=== PATIENT | female | born 1960 | race Caucasian/White ===

== ENCOUNTER 2016-03-24 02:06 | Emergency (ER) | payer MEDICAID ==
[2016-03-24] MEDS ORDERED: DIAZEPAM 5 MG/ML SYRG ONE (02:11)
[2016-03-24 02:33] LABS: Hematocrit 38.9 % (37.0-47.0); Hemoglobin 13.3 gm/dL (12.5-16.0); Mean Cell Volume 106.3 fl (78-100); Mean Corpuscular Hemoglobin 36.3 pg (27-31); Mean Corpuscular Hgb Conc 34.2 g/dl (32-36); Mean Platelet Volume 8.9 fl (6.0-9.5); Neutrophil # 11.5 K/mm3 (1.3-6.0); Neutrophil % 85.8 % (42-75.0); Platelet Count 218 K/mm3 (150-450); Red Blood Count 3.66 M/mm3 (4.2-5.4); Red Cell Distribution Width 13.1 % (11.5-14.0); White Blood Count 13.4 K/mm3 (4.0-10.5)
[2016-03-24 02:46] LABS: ALT 98 U/L (19-67); AST 140 U/L (0-48); Alkaline Phosphatase * 114 U/L (50-170); BUN/Creatinine Ratio 11.8 (9.0-21.6); Bilirubin, Total 0.7 mg/dL (0.0-1.1); Blood Urea Nitrogen 13 mg/dL (3-23); Ca. Corrected For Albumin 9.6 mg/dL (8.4-10.2); Calcium * 9.9 mg/dL (7.9-10.9); Carbon Dioxide 24.3 mmol/L (24-32.6); Chloride 95 mmol/L (97-106); Glucose * 195 mg/dL (70-110); Potassium 3.3 mmol/L (3.4-4.6); Sodium 140 mmol/L (132-142); Total Protein 8.1 gm/dL (6.2-8.2)
--- NOTE | 2016-03-24 03:12 | OR ---
Anesthesia Procedure Note - Anesthesia Procedure Note Narrative: Vital Signs - Last Taken Temp 37.1 C 03/24/16 02:13 Pulse 119 H 03/24/16 02:31 Resp 16 03/24/16 02:13 BP 152/85 03/24/16 02:13 Pulse Ox 94 03/24/16 02:13 O2 Oxygen Delivery Method Room Air 03/24/16 03:09 ANESTHESIA PROCEDURE NOTE Date of procedure: 03/24/2016. Time of procedure: 249. Performed by: Bradley Bah CRNA [employer] Drilling Machine Operator: None . Preprocedure diagnosis: Seizures. respiratory distress.. Post procedure diagnosis: Same. Procedure: Endotracheal intubation Indications: Loss of consciousness. Respiratory distress.. Findings: Endotracheal intubation using glide scope with #3 cover. 7.0 endotracheal tube. Breath sounds equal bilateral. Positive end-tidal CO2. 100 mg of propofol and 80 mg succinylcholine was given IV push for intubation. 50 mg of Zemuron was given IV push post intubation. EBL: Minimal. Fluids: N/A. Specimen: N/A. Post procedure condition: The patient tolerated the procedure well. No complications were noted. Thank you for this consultation Bradley Bah CRNA
--- NOTE | 2016-03-24 03:23 | ERNOTE ---
Medical Problem HPI - Narrative Date of Service: 03/24/16 - General Chief Complaint: Seizure Activity Time Seen by Provider: 03/24/16 02:15 Source: EMS, other - Patient's male friend - Immun/Allergies/Home Medications Immunizations: IMMUNIZATION HX Immunizations Up to Date No History of Influenza Vaccine No Hx Pneumococcal Vaccination No Allergies/Adverse Reactions: Allergies naproxen sodium [From Aleve] Allergy (Intermediate, Verified 06/18/15 13:00) Hives Penicillins Allergy (Intermediate, Verified 06/18/15 13:00) Hives Home Medications: HOME MEDICATIONS Acetaminophen [Tylenol] 650 mg PO PRN PRN 06/12/15 [Last Taken Unknown] - History of Present History Narrative: Patient is a known alcoholic who tried to stop drinking and detox her self yesterday. male supervisor rice milling states that patient fell today prior to presentation to ED and hit her head, Pt then had a seizure and EMS was called to residence. EMS brings patient in and upon arrival GCS is 4 as she is unresponsive but moans with sternal rub. Pupils are 2mm and NOT reactive and pt had a tonic clonic seizure. Anesthesia was consulted for intubation and pt was successfully intubated. Review of Systems - Narrative Narrative: unavailable. however supervisor rice milling states that patient has been ill all day and had had nausea and vomiting all day. Then she fell. Supervisor Hand Silvering is unaware if patient has drank today or if she has had any drugs today - Patient's Past Medical History Patient History - Medical: Alcohol Abuse, Depression, Other Patient History - Cardiac/Respiratory: COPD Patient History - Cancer: No Hx of Cancer, Other Patient History - Surgical Procedures: Hysterectomy Patient History - Other: None - Family History Mother Family History - Medical: History Unknown Father Family History - Medical: History Unknown - Social History Living Situations: home Psych History: No pertinent hx Smoking Status: Current every day smoker Alcohol Use: heavy Drug Use: other - Immunizations Immunizations Up to Date: No Hx Pneumococcal Vaccination: No History of Influenza Vaccine: No Physical Exam - Physical Exam Narrative: pt has GCS of 4, she moans with sternal rub. pupils are NOT reactive to light. Shortly after arrival patient had a seizure and o2 sats dropped to 76 , momentarily and pt was immediately intubated by anesthesiologist ED Progress - Results and Orders Patient's Lab Results:: I have reviewed the patient's lab results. - Vital Signs Patient's Vital Signs:: I have reviewed the patient's vital signs. Vital Signs: Vital Signs 03/24/16 03/24/16 02:13 02:31 Temperature 37.1 C Pulse Rate 125 H 119 H Respiratory 16 Rate Blood Pressure 152/85 O2 Sat by Pulse 94 Oximetry - Progress/Reassessment Chief Complaint: Seizure Activity Plan - Plan Plan: I am being informed that we have no beds available in this facility at this time. Dr. Trinh at [facility] was consulted and accepted patient to his facility after a CT of head and Cspine is done here. Air evac team available. Blood alcohol level is less than 3. Prior to transfer it was noted that patient' s BP was elevated. This examiner asked for a manual BP at 0300. Repeat BP is 149 /103. CT was read as 6mm parafalcine bleed, and 1.1 cm right parietal and right temporal bleed. Keppra 1 gm IV was administered and pt was flown out to [facility]. Departure - Departure Clinical Impression: Seizure after head injury Disposition: [facility] Condition: Serious
[2016-03-24 03:40] LABS: Cocaine Ur Negative (NEGATIVE); Urine Barbiturate Negative (NEGATIVE); Urine Benzodiazepines Negative (NEGATIVE); Urine Opiates Negative (NEGATIVE); Urine PCP Negative (NEGATIVE); Urine THC Negative (NEGATIVE)
[2016-03-24] MEDS ORDERED: MIDAZOLAM HCL/PF 5 MG/ML VIAL ONE (03:57)
[2016-03-24 04:15] VITALS: BP 137/83
[2016-03-24] MEDS ORDERED: MIDAZOLAM HCL/PF 5 MG/ML VIAL IM ONE ×2 (06:25→06:27)
[2016-03-24] MEDS ORDERED: MIDAZOLAM HCL/PF 5 MG/ML VIAL IV ONE (06:31)
== END 2016-03-24 04:15 | disposition short-term general hospital (02) ==
LOC: ER 02:06
PROC: 0BH17EZ Insertion of Endotracheal Airway into Trachea, Via Natural or Artificial Opening (ICD-10-PCS; principal; 2016-03-24)
DX: G40.89 Other seizures (principal); R40.20 Unspecified coma; S09.8XXA Other specified injuries of head, initial encounter; F17.210 Nicotine dependence, cigarettes, uncomplicated; W18.00XA Striking against unspecified object with subsequent fall, initial encounter
CPT/HCPCS: 31500; 36415; 70450; 71010; 80053; 85025; 96374; 99283; G0479; G0481

== ENCOUNTER 2016-08-02 22:58 | Inpatient (IN) | payer SELFPAY ==
[2016-08-02] MEDS ORDERED: NORMAL SALINE 1,000 ML IV ONE (23:17)
[2016-08-02] MEDS ORDERED: METHYLPREDNISOLONE SOD SUCC/PF 40 MG/ML VIAL IV ONE (23:17)
--- NOTE | 2016-08-02 23:23 | ERNOTE ---
Neuro HPI ER Record Date of Service: 08/02/16 Time Seen by Provider: 08/02/16 23:19 Source: patient, EMS, past records - I REVIEWED SOME OF HER MOST RECENT CHARTS. Exam Limitations: clinical condition Immunizations: IMMUNIZATION HX Immunizations Up to Date Yes History of Influenza Vaccine No Hx Pneumococcal Vaccination No Allergies/Adverse Reactions: Allergies Allergy/AdvReac Type Severity Reaction Status Date / Time naproxen sodium [From Aleve] Allergy Intermediate Hives Verified 08/02/16 23:12 Penicillins Allergy Intermediate Hives Verified 08/02/16 23:12 Home Medications: HOME MEDICATIONS NK [No Home Medication] 08/02/16 [Last Taken Unknown] - History of Present Illness Narrative: EMS CALLED BY FRIENDS BECAUSE SHE WAS NOT ACTING RIGHT. SHE HAS ACTED DEPRESSED FOR A LONG TIME , EVER SINCE HER 3 YEARS AGO AND HAS BEEN LIVING WITH A FRIEND, "VICENTA", EVER SINCE. SHE IS A KNOWN ALCOHOLIC WHO HAS HAD WITHDRAWAL SEIZURES IN THE PAST BEING LAST HERE IN MARCH OF THIS YEAR FOR A HEAD BLEED FROM A FALL AND FLOWN TO [facility]. SHE SAYS SHE HAS NOT HAD ANY ALCOHOL FOR A FEW DAYS SINCE VICENTA TOOK IT AWAY. SHE DENIES DRUGS. SHE CAN'T REMEMBER THE LAST TIME SHE ATE. SHE DENIES DIARRHEA BUT HAS OLD STOOL CAKED TO HER BUTTOCKS SHE HAS NOT BEEN DOING EVEN THE SIMPLEST OF SELF CARE. HER FRIEND WAS NOT SURE SHE WAS EVEN DRINKING FLUIDS BUT PT SAYS SHE HAS BEEN URINATING AND DENIES UTI SX'S. SHE DENIES H.A. OR RECENT TRAUMA. Review of Systems - Narrative Narrative: UNABLE TO DO ROS BECAUSE OF CLINICAL CONDITION. - Review of Systems Constitutional: Present: See HPI - IN OTHER INFORMATION IS OF DUBIOUS VALUE SHE IS NOT A GOOD HISTORIAN THOUGH IS ALERT AND KNOWS WHERE SHE IS. - Patient's Past Medical History Patient History - Medical: Alcohol Abuse, Depression, Other Patient History - Cardiac/Respiratory: COPD Patient History - Cancer: No Hx of Cancer, Other Patient History - Surgical Procedures: Hysterectomy Patient History - Other: None - Family History Mother Family History - Medical: History Unknown Father Family History - Medical: History Unknown - Social History Living Situations: significant other Psych History: No pertinent hx Smoking Status: Current every day smoker Alcohol Use: heavy Drug Use: other - Immunizations Immunizations Up to Date: Yes Hx Pneumococcal Vaccination: No History of Influenza Vaccine: No Physical Exam - Physical Exam General Appearance: Present: alert, moderate distress, thin, cachetic, other - SMALL THIN UNKEMPT, DIRTY LADY , SMELLING OF FECES AND URINE, WHO IS ALERT AND COOP BUT HAS A POOR MEMORY AND UNSURE OF THE DAY OR DATE THOUGH SHE KNOWS THAT SHE IS AT [facility] . SHE ACTS OBLIVIOUS TO HER DISHEVELED UNHYGENIC STATE. FACE HAS MANY FRESH SMALL EXCORIATIONS OR BITES TO THE FACE. HER HAIR IS QUITE TANGLED AND DIRTY BUT I DO NOT SEE ANY OBVIOUS INFESTATION. Eye Exam: Normal inspection: bilateral - SUNKEN EYES , PERRL: bilateral, EOMI: bilateral, Scleral icterus: bilateral - A HINT OF SCERAL ICTERUS. Ears, Nose, Throat: Present: normal except -, dry mucous membranes, other - MISSING UPPER PLATE Neck: Present: normal inspection, nontender Respiratory: Present: no respiratory distress, normal breath sounds, no accessory muscle use, chest nontender, lungs clear Cardiovascular/Chest: Present: regular rate, rhythm, no murmur, normal peripheral pulses Peripheral Pulses: N=norm/S=strong/W=weak/B=bound/A=absent: Radial (R): Normal, Radial (L): Normal, Dorsalis-pedis (R): Normal, Dorsalis-pedis (L): Normal Gastrointestinal/Abdominal: Present: nontender, nondistended, soft, no organomegaly Back Exam: Present: normal inspection, no CVA tenderness, no vertebral tenderness Extremity Exam: Present: normal except - - FOR HER UNKEMPT STATE WITH LONG THICKENED TOENAILS. SOME SUPERFICIAL EXTREMITY SCRATCHES. Neurological Exam: Present: alert, no motor/sensory deficits, glaucoma specialist II-XII nml as tested, disoriented to time, disoriented to situation. Absent: facial droop DTR: N=norm/NB=norm/brisk/A=abs/DD=dull/dimin/HC=hyperactive: Knee (R): Normal, Knee (L): Normal Skin Exam: Present: other - SKIN COLOR IS SL. BRONZED AND DRY AND WITH POOR TURGOR Lymphatic Exam: Present: no adenopathy Angela Coma Scale - Assess Eye Opening: Spontaneous Motor: Obeys Commands Verbal: Confused - Total Coma Scale Total: 14 ED Progress - Results and Orders Patient's Lab Results:: I have reviewed the patient's lab results. Results and Orders: WBC = WNL WITH MILD ANEMIA. ABG IS ABNL WITH PH 7.6 AND EVIDENCE OF METABOLIC ALKALOSIS. CMP CONFIRMS THAT WITH NA+= 117, K+=2.1CL = 69 AND CO2 = 46. BUN IS 30 WITH NL CREAT. SHE HAS T. BILI = 3.3 AND AST = 227. URINE (MINICATH)+ PROT. + BILI AND URO TATY. , 10-25 WBC = LEUKO EST. AND 4+ BQCT. CULTURE IS PENDING. ETOH AND UDS = NEG. ARE ASA AND APAP LEVELS. - Vital Signs Patient's Vital Signs:: I have reviewed the patient's vital signs. Vital Signs: Vital Signs 08/02/16 08/02/16 23:01 23:10 Temperature 37.3 C Pulse Rate 117 H 114 H Respiratory 16 Rate Blood Pressure 92/70 O2 Sat by Pulse 95 Oximetry - EKG EKG: other - SINUS TACHYCARDIA EKG read: Interp. by me - Progress/Reassessment Chief Complaint: Altered Mental Status Progress:: Unchanged - Transfer of Care Expected Disposition: Admit Plan - Plan Plan: DISCUSSED WITH HOSPITALIST, SUSAN CHRISTOPHER , WHO WILL SEE HER IN THE ER FOR ADMISSION. Departure Clinical Impression: Altered awareness, transient, Alkalosis, metabolic, Hyponatremia, Hypokalemia UTI (urinary tract infection) Qualifiers: Urinary tract infection type: site unspecified Hematuria presence: with hematuria Qualified Code(s): N39.0 - Urinary tract infection, site not specified - Departure Disposition: [facility] Condition: Serious
[2016-08-02] MEDS ORDERED: METHYLPREDNISOLONE SOD SUCC/PF 125 MG/2 ML VIAL ONE (23:29)
[2016-08-02 23:43] LABS: Hematocrit 28.3 % (37.0-47.0); Hemoglobin 10.8 gm/dL (12.5-16.0); Mean Cell Volume 95.6 fl (78-100); Mean Corpuscular Hemoglobin 36.5 pg (27-31); Mean Corpuscular Hgb Conc 38.2 g/dl (32-36); Mean Platelet Volume 11.3 fl (6.0-9.5); Neutrophil # 4.3 K/mm3 (1.3-6.0); Neutrophil % 77.7 % (42-75.0); Platelet Count 169 K/mm3 (150-450); Red Blood Count 2.96 M/mm3 (4.2-5.4); Red Cell Distribution Width 12.9 % (11.5-14.0); White Blood Count 5.5 K/mm3 (4.0-10.5)
[2016-08-02 23:57] LABS: ALT 48 U/L (19-67); AST 227 U/L (0-48); Albumin * 3.4 gm/dl (3.4-5.0); Alkaline Phosphatase * 211 U/L (50-170); BUN/Creatinine Ratio 49.2 (9.0-21.6); Bilirubin, Total 3.3 mg/dL (0.0-1.1); Blood Urea Nitrogen 30 mg/dL (3-23); Calcium * 8.8 mg/dL (7.9-10.9); Chloride 69 mmol/L (97-106); Glucose * 124 mg/dL (70-110); Salicylate Less than 2.8 mg/dL (2.8-20.0); Total Protein 7.6 gm/dL (6.2-8.2)
--- OUTSIDE RECORDS SUMMARY | 2016-08-02 23:58 | XMS REPORT | Continuity of Care Document ---
:1960 Author Organization [facility] ([facility]) [place] [address] Phone [phone] Care Team Providers Name Role Phone Provider, No-Primary Care Primary Care Provider Unavailable Source Comments This disclosure is being made pursuant to the Care Everywhere program, applicable federal and state laws, and may not contain all informaitonavailable regarding this patient.[facility] ([facility]) Active Allergies and Adverse Reactions Allergen Noted Date Severity Reactions Comments Naproxen Sodium 07/25/2014 Urticaria (Hives) Penicillins 07/25/2014 Angioedema Tramadol 08/04/2014 Nausea & Vomiting,Dizziness Current Medications Prescription Sig. Disp. Refills Start Date End Date Status levETIRAcetam 500 mg Take 1 tablet 80 tablet 11 03/28/2016 Active tablet (500 mg total) by mouth 2 times daily. oxyCODONE 5 mg Take 1-2 tablets 30 tablet 0 03/28/2016 Active immediate release (5-10 mg total) tablet by mouth every 4 hours as needed for pain. amLODIPine 2.5 mg Take 1 tablet 60 tablet 11 03/28/2016 Active tablet (2.5 mg total) by mouth daily. Active Problems Problem Noted Date Acute kidney injury 03/27/2016 Seizure 03/24/2016 Overview: Neurosurgery consulted. Imaging obtained. Will continue to monitor Acute respiratory failure 03/24/2016 Overview: Pt intubated. Will continue to monitor Fall 07/26/2014 Traumatic subdural hematoma 07/26/2014 Overview: Neuro checks f/u hct Immunizations Name Dates Previously Given Next Due Influenza, quadrivalent PF 03/27/2016 Pneumococcal Polysaccharide, PPSV23 (Pneumovax 23) 03/27/2016 Social History Tobacco Use Types Packs/Day Years Used Date Current Every Day Smoker Cigarettes 1 Smokeless Tobacco: Never Used Tobacco Cessation:Ready to Quit: No Comments: Alcohol Use Drinks/Week oz/Week Comments Yes 3 Shots of liquor 1.8 Last Filed Vital Signs Vital Sign Reading Time Taken Blood Pressure 140/95 03/28/2016 8:00 AM CENTER LEAD CONSULTANT Pulse 105 03/28/2016 4:30 AM CENTER LEAD CONSULTANT Temperature 37.4 C (99.3 F) 03/28/2016 8:00 AM CENTER LEAD CONSULTANT Respiratory Rate 16 03/28/2016 8:00 AM CENTER LEAD CONSULTANT Height 1.6 m (5' 3") 03/27/2016 2:23 PM CENTER LEAD CONSULTANT Weight 47.3 kg (104 lb 4.4 oz) 03/28/2016 4:30 AM CENTER LEAD CONSULTANT Body Mass Index 18.48 03/28/2016 4:30 AM CENTER LEAD CONSULTANT Oxygen Saturation 97% 03/28/2016 8:00 AM CENTER LEAD CONSULTANT Plan of Care Health Maintenance Due Date Last Done Comments HCV Screening 1960 Hepatitis B Vaccine (1 of 3 - Primary Series) 1960 Tdap Vaccine 1972 Lipid Disorder Screening 12/18/1979 MMR Vaccine 12/18/1979 Td Vaccine 12/18/1979 Cervical Cancer Screening 12/18/1991 Mammogram 2001 Colonoscopy 2011 Influenza Vaccine: Seasonal Completed 03/27/2016 Pneumococcal Vaccine Completed 03/27/2016 Results from Last 3 Months Not on file
[2016-08-03 00:14] LABS: Anion Gap 3.8 mmol/L (6.8-13.8)
[2016-08-03 00:21] LABS: Potassium 2.1 mmol/L (3.4-4.6); Sodium 117 mmol/L (132-142)
[2016-08-03 00:22] LABS: Carbon Dioxide 46.3 mmol/L (24-32.6)
[2016-08-03 00:51] LABS: Cocaine Ur Negative (NEGATIVE); Urine Barbiturate Negative (NEGATIVE); Urine Benzodiazepines Negative (NEGATIVE); Urine Bilirubin 3 mg/dl (NEGATIVE); Urine Blood 25 /ul (NEGATIVE); Urine Ketone 5 mg/dL (NEGATIVE); Urine Nitrite Negative (NEGATIVE); Urine Opiates Negative (NEGATIVE); Urine PCP Negative (NEGATIVE); Urine Protein 100 mg/dL (NEGATIVE); Urine Specific Gravity 1.015 SP.GR. (1.005-1.010); Urine THC Negative (NEGATIVE); Urine Urobilinogen >=8.0 EU/dl (NORMAL); Urine pH 5.5 pH (5.0-7.0)
[2016-08-03 00:55] LABS: Urine Appearance Slightly Cloudy; Urine Bacteria 4+; Urine Color Orange; Urine RBC None Seen /hpf (0-5)
[2016-08-03] MEDS ORDERED: NORMAL SALINE 1,000 ML IV ONE (01:28)
[2016-08-03] MEDS: POTASSIUM CHLORIDE 100 ML IV SCH ×4 (01:43→05:58)
--- OUTSIDE RECORDS SUMMARY | 2016-08-03 01:48 | XMS REPORT | Continuity of Care Document ---
:1960 Author Organization [facility] ([facility]) [place] [address] Phone [phone] Care Team Providers Name Role Phone Provider, No-Primary Care Primary Care Provider Unavailable Source Comments This disclosure is being made pursuant to the Care Everywhere program, applicable federal and state laws, and may not contain all informaitonavailable regarding this patient.[facility] ([facility]) Active Allergies and Adverse Reactions Allergen Noted [...] Taken Blood Pressure 140/95 03/28/2016 8:00 AM SENIOR UX DESIGNER Pulse 105 03/28/2016 4:30 AM SENIOR UX DESIGNER Temperature 37.4 C (99.3 F) 03/28/2016 8:00 AM SENIOR UX DESIGNER Respiratory Rate 16 03/28/2016 8:00 AM SENIOR UX DESIGNER Height 1.6 m (5' 3") 03/27/2016 2:23 PM SENIOR UX DESIGNER Weight 47.3 kg (104 lb 4.4 oz) 03/28/2016 4:30 AM SENIOR UX DESIGNER Body Mass Index 18.48 03/28/2016 4:30 AM SENIOR UX DESIGNER Oxygen Saturation 97% 03/28/2016 8:00 AM SENIOR UX DESIGNER Plan of Care Health Maintenance Due Date [...]
[2016-08-03] MEDS ORDERED: SODIUM CHLORIDE 3 % 500 ML IV SCH (02:00)
[2016-08-03] MEDS ORDERED: POTASSIUM CHLORIDE 40 MEQ/15 ML BTL PO ONE ×2 (02:31→05:03)
--- NOTE | 2016-08-03 02:34 | HP ---
Chief Complaint - Chief Complaint Date of Service: 08/03/16 - n Time of Service: 02:33 Chief Complaint: ' AMS, Weakness, lethargic '. Source HPI- Pt; unreliable, ER provider report, Nursing Staff, History of Present Illness: Ms. Salazar is 55-yr-old WF pt who has no PCP & rarely seeks medical care. Her known PMH involves Seizures, CVA & COPD. She appears to be imprecise in providing information of her medical & psychosocial issues. She thinks we are in the calender year of " 2007," and that she was born in "1980" and when asked who the current president is, she says " I have to stop and think as I feel dizzy," but her conversation meanders away from the question asked. No family/ friends were present at bedside but I was informed that pt lives with a male parent partner/room mate who goes by VICENTA. I reached him via the telephone and he willingly provided the information surrounding the pt's scenario/situation at home. He states that pt's spouse 3 yrs ago and he has provided living accommodation for her for since then . He states the Ms. Salazar cannot hold any employment but has been living off her 's estate settlement and he controls the finance, "even though there is not much left." He reports that for the last 3 months, it been getting extremely difficult to provide care for . She is weak and cannot do any chores in the house. 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 This has happened 3 times in the last couple of months. He states that for the last 1 week, pt has been refusing to eat and does not have much of an appetite. She drinks 1 pint of Vodka daily. VICENTA admits that he offers to buy for her as if he doesn't " she will find or use any means to get it." However, he states that for the last 3-days, she has not drunk any alcohol as she has been unwell. Every day when he comes home from work, he says that he will find Ms. Salazar incontinent of urine on the couch and he assists her in taking a bath. Today, he states when got home from work, she found her covered in urine and feces and she was too weak to stand. He says that he could not take it anymore and called the EMS, and she was brought to the [facility] ER. He states that he cannot provide living accommodation to Ms. Salazar after hospitalization unless she is independently functional so he can drive her to her family in [place]. She has two adult children who live in [place] and the relationship is estranged. Her mother has Alzheimer's and lives in [place] along with two pt's sisters. During evaluation at the ED tonight, the Head CT and CXR obtained did not have any acute findings. BMP showed Na level of 117 and K of 2.1 & Bilirubin level of 3.0. The UA showed presence of a UTI. She will need to be admitted inpatient due to Hyponatremia & Hypokalemia. - Patient's Past Medical History Patient History - Medical: Alcohol Abuse, Depression, Other Patient History - Cardiac/Respiratory: COPD Patient History - Cancer: No Hx of Cancer, Other Patient History - Surgical Procedures: Hysterectomy Patient History - Other: None - Family History Mother Family History - Medical: History Unknown Father Family History - Medical: History Unknown - Social History Living Situations: significant other Psych History: No pertinent hx Smoking Status: Current every day smoker Alcohol Use: heavy Drug Use: other - Immunizations Immunizations Up to Date: Yes Hx Pneumococcal Vaccination: No History of Influenza Vaccine: No Review Of Systems (GEN) - Review of Systems Additional Comments: History unobtainable from pt due to AMS. Allergies/Adverse Reactions: Allergies Allergy/AdvReac Type Severity Reaction Status Date / Time naproxen sodium [From Aleve] Allergy Intermediate Hives Verified 08/02/16 23:12 Penicillins Allergy Intermediate Hives Verified 08/02/16 23:12 Home Medications: HOME MEDICATIONS NK [No Home Medication] 08/02/16 [Last Taken Unknown] Exam - Exam Vital Signs: Vital Signs - Last Taken Temp 36.9 C 08/03/16 01:52 Pulse 105 H 08/03/16 01:52 Resp 14 08/03/16 01:52 BP 103/60 08/03/16 01:52 Pulse Ox 97 08/03/16 01:52 Constitutional: Present: Alert, No distress, Other - She is in a disheveled state of hygiene- has bad odour of urine and feces, fingernails covered with feces, scattered lesions and scabs all over her skin & tangled hair., Thin and frail, Looks Older than stated age ENT Exam: Present: dry mucous membranes Eye Exam: bilateral eye: normal inspection, PERRL Neck: Present: non-tender, full range of motion, supple Back Exam: Present: normal inspection, no CVA tenderness Breasts: Present: Exam deferred Respiratory: Present: lungs clear, no accessory muscle use Cardiovascular/Chest: Present: regular rate, rhythm, no murmur Abdomen: Present: Normal bowel sounds, soft, nontender /Rectal: Present: Exam deferred Extremity: Present: normal inspection, no pedal edema, no calf tenderness Skin Exam: Present: other - Scattered scabs and lesion all over. Open areas on bottocks Lymphatic: Present: no adenopathy Neurologic: Present: alert, abnormal gait, disoriented x 3. Absent: dizzy/light -headedness Appearance: Present: disheveled, impaired insight Eye contact: Present: cooperative, good eye contact Thoughts: Present: no apparent hallucination, incoherent Diagnostic Studies: Laboratory Results WBC 5.5 K/mm3 (4.0-10.5) 08/02/16 23:30 RBC 2.96 M/mm3 (4.2-5.4) L 08/02/16 23:30 Hgb 10.8 gm/dL (12.5-16.0) L 08/02/16 23:30 Hct 28.3 % (37.0-47.0) L 08/02/16 23:30 MCV 95.6 fl (78-100) 08/02/16 23:30 MCH 36.5 pg (27-31) H 08/02/16 23:30 MCHC 38.2 g/dl (32-36) H 08/02/16 23:30 RDW 12.9 % (11.5-14.0) 08/02/16 23:30 Plt Count 169 K/mm3 (150-450) 08/02/16 23:30 MPV 11.3 fl (6.0-9.5) H 08/02/16 23:30 Immature Gran % (Auto) 0.50 % (0.001-0.429) H 08/02/16 23:30 Immature Gran # (Auto) 0.03 K/mm3 (0.000-0.0310) 08/02/16 23:30 Neutrophils % 77.7 % (42-75.0) H 08/02/16 23:30 Lymphocytes % 10.5 % (20-51) L 08/02/16 23:30 Monocytes % 10.9 % (0.0-9) H 08/02/16 23:30 Eosinophils % 0.2 % (0.0-3.0) 08/02/16 23:30 Basophils % 0.2 % (0.0-1.0) 08/02/16 23:30 Nucleated RBC % 0.0 k/mm3 (0-1) 08/02/16 23:30 Neutrophils # 4.3 K/mm3 (1.3-6.0) 08/02/16 23:30 Lymphocytes # 0.6 k/mm3 (1.5-3.5) L 08/02/16 23:30 Monocytes # 0.6 k/mm3 (0.0-1.0) 08/02/16 23:30 Eosinophils # 0.0 k/mm3 (0.0-0.7) 08/02/16 23:30 Absolute Basophils 0.0 k/mm3 (0.0-0.1) 08/02/16 23:30 pCO2 39.8 mmHg (32.0-45.0) 08/02/16 23:56 pO2 65.5 mmHg (83.0-108.0) L 08/02/16 23:56 HCO3 40.6 mmol/L (21.0-28.0) H 08/02/16 23:56 Total CO2 41.9 mmol/L (19.0-24.0) H 08/02/16 23:56 Base Excess 17.7 mmol/L (-2.0-3.0) H 08/02/16 23:56 ABG pH 7.63 (7.35-7.45) H* 08/02/16 23:56 ABG O2 Sat (Measured) 95.8 % (94.0-98.0) 08/02/16 23:56 Sodium 117 mmol/L (132-142) L* D 08/02/16 23:30 Plasma Sodium 117 mmol/L (130-142) L* 08/02/16 23:30 Potassium 2.1 mmol/L (3.4-4.6) L* D 08/02/16 23:30 Chloride 69 mmol/L (97-106) L 08/02/16 23:30 Carbon Dioxide 46.3 mmol/L (24-32.6) H 08/02/16 23:30 Anion Gap 3.8 mmol/L (6.8-13.8) L 08/02/16 23:30 BUN 30 mg/dL (3-23) H D 08/02/16 23:30 Creatinine 0.61 mg/dL (0.4-1.4) 08/02/16 23:30 Est GFR (Non-Af Amer) 109 mL/min (60-130) D 08/02/16 23:30 BUN/Creatinine Ratio 49.2 (9.0-21.6) H 08/02/16 23:30 Random Glucose 124 mg/dL (70-110) H 08/02/16 23:30 Calcium 8.8 mg/dL (7.9-10.9) 08/02/16 23:30 Calcium Adj for Albumin 9.0 mg/dL (8.4-10.2) 08/02/16 23:30 Total Bilirubin 3.3 mg/dL (0.0-1.1) H 08/02/16 23:30 AST 227 U/L (0-48) H 08/02/16 23:30 ALT 48 U/L (19-67) 08/02/16 23:30 Alkaline Phosphatase 211 U/L (50-170) H 08/02/16 23:30 Total Protein 7.6 gm/dL (6.2-8.2) 08/02/16 23:30 Albumin 3.4 gm/dl (3.4-5.0) 08/02/16 23:30 Urine Color [place] 08/03/16 00:29 Urine Appearance Slightly cloudy 08/03/16 00:29 Urine pH 5.5 pH (5.0-7.0) 08/03/16 00:29 Ur Specific [place] 1.015 SP.GR. (1.005-1.010) 08/03/16 00:29 Urine Protein 100 mg/dL (NEGATIVE) H 08/03/16 00:29 Urine Glucose (UA) Negative mg/dL (NEGATIVE) 08/03/16 00:29 Urine Ketones 5 mg/dL (NEGATIVE) 08/03/16 00:29 Urine Blood 25 /ul (NEGATIVE) H 08/03/16 00:29 Urine Nitrate Negative (NEGATIVE) 08/03/16 00:29 Urine Bilirubin 3 mg/dl (NEGATIVE) H 08/03/16 00:29 Urine Ictotest Negative (NEGATIVE) 08/03/16 00:29 Prot Sulfosalicylic Acd 2+ mg/dL (0) H 08/03/16 00:29 Urine Urobilinogen >=8.0 EU/dl (NORMAL) H 08/03/16 00:29 Ur Leukocyte Esterase 75 /ul (NEGATIVE) H 08/03/16 00:29 Urine RBC None seen /hpf (0-5) 08/03/16 00:29 Urine WBC 10-25 /hpf (0-5) H 08/03/16 00:29 Ur Epithelial Cells None seen /hpf (0-5) 08/03/16 00: Urine Bacteria 4+ (NONE) H 08/03/16 00:29 Urine Culture Comments Culture to follow 08/03/16 00:29 Salicylates Less than 2.8 mg/dL (2.8-20.0) L 08/02/16 23:30 Urine Opiates Screen Negative (NEGATIVE) 08/03/16 00:29 Acetaminophen Less than 0.2 mcg/mL (10.0-30.0) L 08/02/16 23:30 Barbiturate Screen Negative (NEGATIVE) 08/03/16 00:29 Ur Phencyclidine Scrn Negative (NEGATIVE) 08/03/16 00:29 Urine Amphetamine Negative (NEGATIVE) 08/03/16 00:29 U Benzodiazepines Scrn Negative (NEGATIVE) 08/03/16 00:29 Urine Cocaine Screen Negative (NEGATIVE) 08/03/16 00:29 Urine Marijuana (THC) Negative (NEGATIVE) 08/03/16 00:29 Ethyl Alcohol Less than 3.0 mg/dL (0.0-10.0) 08/02/16 23:30 Assessment/Plan - Assessment/Plan (1) Hyponatremia Assessment: Pt noted to have Na level of 117. Pt noted to be symptomatic with weakness & disorientation. Do suspect that this is due to GI Loss as there are no reports of Diarrhea or vomiting. Pt has a known history of alcoholism and therefore this is likely due to euvolemic hyponatremia caused from beer potomania. Will correct with 3% saline and the serum correction should not exceed > 12 MeQ/L in 24 hour period . Also avoid quick correction to prevent complication such as Central Pontine Myelinosis & Seizures. Will monitor serum sodium q 4 hrs and restrict free water to 1-1.5 L/day. Problem: Acute (2) Hypokalemia Assessment: Noted to have K of 2.1 and symptomatic with weakness only. Replacement total of 80 mEq given (40 IV & 40 orally). Will give another [address] on telemetry monitoring. BMP in am. Problem: Acute (3) UTI (urinary tract infection) Assessment: UA showed UTI. Will cover with Rocephin until culture results. Problem: Acute Qualifiers: Urinary tract infection type: site unspecified Hematuria presence: with hematuria Qualified Code(s): N39.0 - Urinary tract infection, site not specified; R31.9 - Hematuria, unspecified (4) Abnormal liver enzymes Assessment: Noted to have Total bilirubin of 3.3. The direct Bilirubin of 1.9, indirect 1.4. ALP elevated so will check GGT levels and if both are elevated, will suspect either extrahepatic or intrahepatic obstruction OR Liver disease and will consider getting an organ Specific US. Problem: Acute (5) Metabolic encephalopathy Assessment: AMS likely due to dehydration, electrolyte imbalances or UTI. Expect to see an improvement in mentation as problems resolve. Problem: Acute (6) Discharge planning issues Assessment: Maybe problematic discharge given concerns for selfcare neglect. Will have case mgt assist with d/c process and planning. Problem: Acute (7) Alcohol dependence Assessment: Will initiate [facility] protocol to assist with ETOH detoxification. Consider Psychiatric evaluation. Problem: Chronic
[2016-08-03] MEDS ORDERED: LORazepam 2 MG/ML DISP.SYRIN IV PRN ×3 (03:47)
[2016-08-03] MEDS ORDERED: POTASSIUM CHLORIDE 40 MEQ/15 ML BTL ONE (03:53)
[2016-08-03 03:54] LABS: Prothrombin Time (Patient) 10.5 Seconds (9.4-11.4)
[2016-08-03 03:55] LABS: Bilirubin Direct 1.9 mg/dL (0.0-0.3); INR 1.01 INR (0.90-1.10); Partial Thrombolplastin Time 25.4 Seconds (24-32)
[2016-08-03 07:42] LABS: Anion Gap 3.6 mmol/L (6.8-13.8); BUN/Creatinine Ratio 44.2 (9.0-21.6); Calcium * 8.3 mg/dL (7.9-10.9); Estimated Creat Clear 102.3; Potassium 3.6 mmol/L (3.4-4.6)
--- NOTE | 2016-08-03 08:26 | PN ---
Progess Note - Interim Narrative: 08/03/16 08:21 I saw and examined this patient. I agree with the narrative and plan of MARGE Murdock with some exception. She has AMS likely due to metabolic encephalopathy- multifactorial - h/o chronic alcohol intake r/o Wernicke- Korsakoff, Hyponateremia -acute probably more than chronic. Her hyponatremia is symptomatic and likely hypotonic, hypovolemic . I agree with 3%NaCl. Will send for serum and urine osmolality.Will start alcohol withdrawal protocol. treat UTI and do US of the liver and GB for her elevated LFTS. Will work with placement after discharge. 08/04/16 06:45
[2016-08-03 08:42] LABS: Chol/HDL Risk Ratio 2.9 mg/dL (3.3-4.4); TSH * 1.765 uIU/mL (0.358-3.74)
[2016-08-03] MEDS: MULTIVITAMINS 1 CAP CAPSULE PO SCH (09:29)
[2016-08-03] MEDS: FOLIC ACID 1 MG TABLET PO SCH (09:29)
[2016-08-03] MEDS: THIAMINE HCL 100 MG TABLET PO SCH (09:29)
[2016-08-03] MEDS: SODIUM CHLORIDE 3 % 500 ML IV SCH (15:59)
--- NOTE | 2016-08-04 06:26 | PN ---
Subjective - Date and Time Seen Date: 08/04/16 Time: 06:21 Subjective Narrative: Pt examined this am. She is alert and in no distress. Still feels very weak and has not been ambulating. She continues to have memory impairment and cannot relate well to current events. When asked what year she was born, she has to think for a few seconds. Nursing reports continued incontinence and does not utilize call-light to state toileting needs. Objective - Vitals Vitals: Last Vital Signs Temp 36.8 C 08/04/16 02:36 Pulse 104 H 08/04/16 02:36 Resp 18 08/04/16 02:36 BP 98/77 08/04/16 02:36 Pulse Ox 98 08/04/16 02:36 - Abnormal Lab Findings Abnormal Lab Findings: Abnormal Lab Results 08/03/16 08/03/16 08/03/16 Range/Units 07:25 11:27 15:36 Sodium 119 L 123 L 119 L (132-142) mmol/L Plasma Sodium 120 L (130-142) mmol/L Chloride 80 L (97-106) mmol/L Carbon Dioxide 39.0 H (24-32.6) mmol/L Anion Gap 3.6 L (6.8-13.8) mmol/L Est GFR (Non-Af Amer) 131 H D (60-130) mL/min BUN/Creatinine Ratio 44.2 H (9.0-21.6) Random Glucose 168 H D (70-110) mg/dL Cholesterol/HDL Ratio (3.3-4.4) mg/dL 08/03/16 08/03/16 08/03/16 Range/Units 19:19 23:35 Unknown Sodium 121 L 127 L (132-142) mmol/L Plasma Sodium (130-142) mmol/L Chloride (97-106) mmol/L Carbon Dioxide (24-32.6) mmol/L Anion Gap (6.8-13.8) mmol/L Est GFR (Non-Af Amer) (60-130) mL/min BUN/Creatinine Ratio (9.0-21.6) Random Glucose (70-110) mg/dL Cholesterol/HDL Ratio 2.9 L (3.3-4.4) mg/dL 08/04/16 Range/Units 03:40 Sodium 125 L (132-142) mmol/L Plasma Sodium (130-142) mmol/L Chloride (97-106) mmol/L Carbon Dioxide (24-32.6) mmol/L Anion Gap (6.8-13.8) mmol/L Est GFR (Non-Af Amer) (60-130) mL/min BUN/Creatinine Ratio (9.0-21.6) Random Glucose (70-110) mg/dL Cholesterol/HDL Ratio (3.3-4.4) mg/dL - Exam Constitutional: Present: Alert, No distress, Other - orented to self and place only. ENT Exam: Present: normal ENT inspection, hearing grossly normal, dry mucous membranes Neck: Present: full range of motion, supple, normal inspection Breasts: Present: Exam deferred Respiratory: Present: lungs clear, no accessory muscle use Cardiovascular/Chest: Present: normal peripheral pulses, regular rate, rhythm, no edema, no murmur Abdomen: Present: Normal bowel sounds, soft, nontender /Rectal: Present: Exam deferred Extremity: Present: non-tender, normal inspection, no pedal edema Skin Exam: Present: cool/dry, other - scattered scabs and lesions, open skin areas ob buttocks. Neurologic: Present: no motor/sensory deficits, alert, normal mood/affect Appearance: Present: impaired insight Eye contact: Present: good eye contact, decreased rate of speech Thoughts: Present: no apparent hallucination Assessment/Plan - Problems/Diagnosis (1) Hyponatremia Problem: Acute Narrative: Pt noted to have Na level of 117 on DOA. Pt noted to be symptomatic with weakness & disorientation. Do NOT suspect that this is due to GI Loss as there are no reports of Diarrhea or vomiting. Pt has a known history of alcoholism and therefore this is likely due to euvolemic hyponatremia caused from beer potomania. Correct with 3% saline and the serum correction should not exceed > 12 MeQ/L in 24 hour period . At 2330 Na was 127, rate cut back to 7ml/hr. At 0300 Na 125 - Rate increased to 10 ml/hr. Avoid quick correction to prevent complication such as Central Pontine Myelinosis & Seizures. Will monitor serum sodium q 4 hrs and restrict free water to 1-1.5 L/day. Laboratory Tests 08/02/16 08/03/16 08/03/16 23:30 03:35 07:25 Sodium 117 L* D 117 L* 119 L 08/03/16 08/03/16 08/03/16 11:27 15:36 19:19 Sodium 123 L 119 L 121 L 08/03/16 08/04/16 23:35 03:40 Sodium 127 L 125 L (2) Hypokalemia Problem: Acute Narrative: Noted to have K of 2.1 and symptomatic with weakness only on DOA. Replacement total dose of 120 mEq given. Is in NR now. BMP in am. (3) UTI (urinary tract infection) Problem: Acute Qualifiers: Urinary tract infection type: site unspecified Hematuria presence: with hematuria Qualified Code(s): N39.0 - Urinary tract infection, site not specified; R31.9 - Hematuria, unspecified Narrative: Continue Rocephin until urine culture results. (4) Abnormal liver enzymes Problem: Acute Narrative: Noted to have Total bilirubin of 3.3. The direct Bilirubin of 1.9, indirect 1.4. ALP GGT levels were elevated, no extrahepatic or intrahepatic obstruction or Liver disease seen on the US. Suspect that the GGT & ALP are elevated due to alcoholism. She had bilirubin on urine implying that she likely has liver disease. (5) Metabolic encephalopathy Problem: Acute Narrative: AMS likely due to dehydration- electrolyte imbalances , UTI, chronic alcohol intake - Wernicke's Encephlopathy. May have slight improvement with mentation as problems resolve. (6) Discharge planning issues Problem: Acute Narrative: Maybe problematic discharge given concerns for selfcare neglect. Will have case mgt assist with d/c process and planning. (7) Alcohol dependence Problem: Chronic Narrative: Will initiate [facility] protocol to assist with ETOH detoxification. Consider Psychiatric evaluation.
[2016-08-04 07:38] LABS: Mean Cell Volume 97.2 fl (78-100); Mean Corpuscular Hemoglobin 36.3 pg (27-31); Mean Corpuscular Hgb Conc 37.3 g/dl (32-36); Mean Platelet Volume 10.6 fl (6.0-9.5); Neutrophil # 5.9 K/mm3 (1.3-6.0); Neutrophil % 69.8 % (42-75.0); Platelet Count 194 K/mm3 (150-450); Red Blood Count 2.15 M/mm3 (4.2-5.4); Red Cell Distribution Width 13.2 % (11.5-14.0); White Blood Count 8.4 K/mm3 (4.0-10.5)
[2016-08-04 07:41] LABS: Hematocrit 20.9 % (37.0-47.0); Hemoglobin 7.8 gm/dL (12.5-16.0)
[2016-08-04 07:56] LABS: Albumin * 2.5 gm/dl (3.4-5.0); Anion Gap 7.2 mmol/L (6.8-13.8); Bilirubin, Total 1.4 mg/dL (0.0-1.1); Ca. Corrected For Albumin 9.2 mg/dL (8.4-10.2); Calcium * 8.3 mg/dL (7.9-10.9); Carbon Dioxide 34.7 mmol/L (24-32.6); Potassium 2.9 mmol/L (3.4-4.6); Total Protein 5.9 gm/dL (6.2-8.2)
[2016-08-04] MEDS: THIAMINE HCL 100 MG TABLET PO SCH (08:45)
[2016-08-04] MEDS: FOLIC ACID 1 MG TABLET PO SCH (08:45)
[2016-08-04] MEDS: MULTIVITAMINS 1 CAP CAPSULE PO SCH (08:45)
--- NOTE | 2016-08-04 08:47 | PN ---
Progess Note - Interim Narrative: 08/04/16 08:42 I saw and examined this patient. I agree with the narrative and plan of MARGE Murdock. Na is 123. Will increase her rate of her 3 % NaCl to 20 ml/hour. Her Hb is is down to 7.8 from 10.7 and 13.3 in 03/2016. No active gross bleeding. Will do anemia work up and stool for occult blood. Will refer to Surgery for possible EGD possible varices after she gets her BT. Will give BT - she gets lightheaded when she stands up and her BP are on the low side. will defer Propanolol for possible Portal HTN for now. will get ammonia level and possible lactulose. Her US of lever and GB was basically normal. 08/05/16 06:38
[2016-08-04 08:52] LABS: Iron 242 mcg/dL (35-120); Transferrin Sat. (% Sat.) 95 % (15-55)
[2016-08-04 09:20] LABS: Folate 4.8 ng/mL (8.6-58.9)
[2016-08-04] MEDS: PANTOPRAZOLE SODIUM 40 MG in NORMAL SALINE 100 ML IV SCH (11:25)
[2016-08-04] MEDS: POTASSIUM CHLORIDE 10 MEQ TABLET.SA PO SCH ×2 (11:29→17:33)
[2016-08-04] MEDS: SODIUM CHLORIDE 3 % 500 ML IV SCH ×2 (15:35→16:05)
[2016-08-04] MEDS ORDERED: LABETALOL HCL 5 MG/ML VIAL IV ONE (20:29)
[2016-08-05] MEDS: SODIUM CHLORIDE 3 % 500 ML IV SCH ×2 (06:21→08:02)
[2016-08-05 07:37] LABS: Hematocrit 30.1 % (37.0-47.0); Hemoglobin 10.6 gm/dL (12.5-16.0); Mean Cell Volume 90.7 fl (78-100); Mean Corpuscular Hemoglobin 31.9 pg (27-31); Mean Corpuscular Hgb Conc 35.2 g/dl (32-36); Mean Platelet Volume 9.6 fl (6.0-9.5); Neutrophil # 4.3 K/mm3 (1.3-6.0); Neutrophil % 52.3 % (42-75.0); Platelet Count 186 K/mm3 (150-450); Red Blood Count 3.32 M/mm3 (4.2-5.4); Red Cell Distribution Width 20.2 % (11.5-14.0); White Blood Count 8.2 K/mm3 (4.0-10.5)
[2016-08-05 07:50] LABS: Albumin * 2.5 gm/dl (3.4-5.0); Anion Gap 8.2 mmol/L (6.8-13.8); BUN/Creatinine Ratio 15.8 (9.0-21.6); Ca. Corrected For Albumin 9.1 mg/dL (8.4-10.2); Calcium * 8.2 mg/dL (7.9-10.9); Carbon Dioxide 32.1 mmol/L (24-32.6); Potassium 3.3 mmol/L (3.4-4.6); Total Protein 5.7 gm/dL (6.2-8.2)
--- NOTE | 2016-08-05 08:13 | PN ---
Subjective - Date and Time Seen Date: 08/05/16 Time: 08:03 Subjective Narrative: Patient is more awake. Pleasant but occasionally confused. She then started tearing up and says she misses her family. She says she started drinking heavily 2 years ago when her but does not want to tell me how much she drinks a day. Objective - Review of Systems Generalized/Overall Review: Denies: Chills, Fever EENTM: Reports: No Symptoms Reported Respiratory: Denies: Cough, Shortness of Breath Cardiac: Denies: Chest Pain, Edema, Palpitations Abdominal: Denies: Nausea, Vomiting, Hematemesis, Abdominal Pain Genitourinary Symptoms: Denies: Urgency, Frequency Musculoskeletal Complaints: Denies: Joint Pain - Vitals Vitals: Last Vital Signs Temp 37.1 C 08/05/16 06:00 Pulse 106 H 08/05/16 06:00 Resp 18 08/05/16 06:00 BP 106/77 08/05/16 06:00 Pulse Ox 97 08/05/16 06:00 - Abnormal Lab Findings Abnormal Lab Findings: Abnormal Lab Results 08/03/16 08/03/16 08/03/16 Range/Units 03:35 23:30 23:30 RBC (4.2-5.4) M/mm3 Hgb (12.5-16.0) gm/dL Hct (37.0-47.0) % MCH (27-31) pg RDW (11.5-14.0) % MPV (6.0-9.5) fl Immature Gran % (Auto) (0.001-0.429) % Immature Gran # (Auto) (0.000-0.0310) K/mm3 Monocytes % (0.0-9) % Monocytes # (0.0-1.0) k/mm3 Sodium (132-142) mmol/L Potassium (3.4-4.6) mmol/L Chloride (97-106) mmol/L Creatinine (0.4-1.4) mg/dL Est GFR (Non-Af Amer) (60-130) mL/min Iron 242 H (35-120) mcg/dL TIBC 254 L (260-445) mcg/dL Transferrin % Sat 95 H (15-55) % AST (0-48) U/L ALT (19-67) U/L Total Protein (6.2-8.2) gm/dL Albumin (3.4-5.0) gm/dl Vitamin B12 1016 H (193-986) pg/mL Folate 4.8 L (8.6-58.9) ng/mL Crossmatch See Detail 08/04/16 08/04/16 08/04/16 Range/Units 11:40 15:42 19:34 RBC (4.2-5.4) M/mm3 Hgb (12.5-16.0) gm/dL Hct (37.0-47.0) % MCH (27-31) pg RDW (11.5-14.0) % MPV (6.0-9.5) fl Immature Gran % (Auto) (0.001-0.429) % Immature Gran # (Auto) (0.000-0.0310) K/mm3 Monocytes % (0.0-9) % Monocytes # (0.0-1.0) k/mm3 Sodium 126 L 126 L 127 L (132-142) mmol/L Potassium (3.4-4.6) mmol/L Chloride (97-106) mmol/L Creatinine (0.4-1.4) mg/dL Est GFR (Non-Af Amer) (60-130) mL/min Iron (35-120) mcg/dL TIBC (260-445) mcg/dL Transferrin % Sat (15-55) % AST (0-48) U/L ALT (19-67) U/L Total Protein (6.2-8.2) gm/dL Albumin (3.4-5.0) gm/dl Vitamin B12 (193-986) pg/mL Folate (8.6-58.9) ng/mL Crossmatch 08/04/16 08/05/16 08/05/16 Range/Units 23:59 03:45 07:30 RBC (4.2-5.4) M/mm3 Hgb (12.5-16.0) gm/dL Hct (37.0-47.0) % MCH (27-31) pg RDW (11.5-14.0) % MPV (6.0-9.5) fl Immature Gran % (Auto) (0.001-0.429) % Immature Gran # (Auto) (0.000-0.0310) K/mm3 Monocytes % (0.0-9) % Monocytes # (0.0-1.0) k/mm3 Sodium 131 L 130 L (132-142) mmol/L Potassium 3.3 L (3.4-4.6) mmol/L Chloride 95 L (97-106) mmol/L Creatinine 0.38 L (0.4-1.4) mg/dL Est GFR (Non-Af Amer) 188 H D (60-130) mL/min Iron (35-120) mcg/dL TIBC (260-445) mcg/dL Transferrin % Sat (15-55) % AST 172 H (0-48) U/L ALT 79 H (19-67) U/L Total Protein 5.7 L (6.2-8.2) gm/dL Albumin 2.5 L (3.4-5.0) gm/dl Vitamin B12 (193-986) pg/mL Folate (8.6-58.9) ng/mL Crossmatch 08/05/16 Range/Units 07:30 RBC 3.32 L (4.2-5.4) M/mm3 Hgb 10.6 L (12.5-16.0) gm/dL Hct 30.1 L (37.0-47.0) % MCH 31.9 H (27-31) pg RDW 20.2 H (11.5-14.0) % MPV 9.6 H (6.0-9.5) fl Immature Gran % (Auto) 3.30 H (0.001-0.429) % Immature Gran # (Auto) 0.27 H (0.000-0.0310) K/mm3 Monocytes % 18.0 H (0.0-9) % Monocytes # 1.5 H (0.0-1.0) k/mm3 Sodium (132-142) mmol/L Potassium (3.4-4.6) mmol/L Chloride (97-106) mmol/L Creatinine (0.4-1.4) mg/dL Est GFR (Non-Af Amer) (60-130) mL/min Iron (35-120) mcg/dL TIBC (260-445) mcg/dL Transferrin % Sat (15-55) % AST (0-48) U/L ALT (19-67) U/L Total Protein (6.2-8.2) gm/dL Albumin (3.4-5.0) gm/dl Vitamin B12 (193-986) pg/mL Folate (8.6-58.9) ng/mL Crossmatch - Exam Constitutional: Present: Alert - AAO x 2, Cooperative, Looks Older than stated age ENT Exam: Present: hearing grossly normal Neck: Present: supple Breasts: Present: Exam deferred Respiratory: Present: decreased breath sounds, No rales, No wheezing Cardiovascular/Chest: Present: regular rate, rhythm, no JVD, no murmur Abdomen: Present: Normal bowel sounds, soft, nontender, nondistended Extremity: Present: no pedal edema, no calf tenderness Assessment/Plan - Problems/Diagnosis (1) Hyponatremia Problem: Acute Narrative: Na is 132 today. Will d/c her Hypertonic saline. (2) Metabolic encephalopathy Problem: Acute Narrative: multifactorial- hyponatremia r/o hepatic encephalopathy, r/o Wernick Korsakoff (3) Abnormal liver enzymes Problem: Acute Narrative: likely liver cirrhosis. US is showing normal liver/spleen (4) UTI (urinary tract infection) Problem: Acute Qualifiers: Urinary tract infection type: site unspecified Hematuria presence: with hematuria Qualified Code(s): N39.0 - Urinary tract infection, site not specified; R31.9 - Hematuria, unspecified Narrative: continue with IV rocephin. E.Coli UTI. (5) Alcohol dependence Problem: Chronic Qualifiers: Complication of substance-induced condition: with unspecified complication Narrative: on withdrawal protocol. (6) Anemia Problem: Acute Qualifiers: Anemia type: unspecified type Qualified Code(s): D64.9 - Anemia, unspecified Narrative: Iron elevated ( consider hemosiderosis vs hemochromatosis- check ferritin). B12 / Folate WNL. awaiting stool for occult blood. 2 units PRBC given. will get surgical consult for possible EGD. (7) Depression Problem: Chronic Qualifiers: Active/Remission status: currently active Narrative: will get Psychiatry consult.
[2016-08-05] MEDS ORDERED: POTASSIUM CHLORIDE 10 MEQ TABLET.SA PO ONE (09:18)
[2016-08-05] MEDS: PANTOPRAZOLE SODIUM 40 MG in NORMAL SALINE 100 ML IV SCH (09:39)
[2016-08-05] MEDS: FOLIC ACID 1 MG TABLET PO SCH (09:44)
[2016-08-05] MEDS: MULTIVITAMINS 1 CAP CAPSULE PO SCH (09:44)
[2016-08-05] MEDS: THIAMINE HCL 100 MG TABLET PO SCH (09:44)
[2016-08-05] MEDS: LACTULOSE 10 G/15 ML BTL PO SCH (09:51)
--- NOTE | 2016-08-05 14:41 | CONS ---
HPI - General Date of Service: 08/05/16 Source: patient, family, RN/MD, RN notes reviewed Exam Limitations: other - altered mental status - History of Present Illness Timing/Duration: unsure Severity: moderate Associated Symptoms: loss of appetite, weakness, other - dry heaves Allergies/Adverse Reactions: Allergies naproxen sodium [From Aleve] Allergy (Intermediate, Verified 08/02/16 23:12) Hives Penicillins Allergy (Intermediate, Verified 08/02/16 23:12) Hives Home Medications: Home Medications Medication Instructions Recorded Last Taken NK [No Home Medication] 08/02/16 Unknown - Patient's Past Medical History Patient History - Medical: Alcohol Abuse, Depression, Other Patient History - Cardiac/Respiratory: COPD Patient History - Cancer: No Hx of Cancer, Other Patient History - Surgical Procedures: Hysterectomy Patient History - Other: None LMP (females 10-50): Menopausal - Family History Mother Family History - Medical: History Unknown Father Family History - Medical: History Unknown - Social History Living Situations: significant other Psych History: No pertinent hx Smoking Status: Current every day smoker Have you smoked in the past 12 months: Yes Do you dip or chew tobacco: No Alcohol Use: heavy Drug Use: other - Immunizations Immunizations Up to Date: Yes Hx Pneumococcal Vaccination: No History of Influenza Vaccine: No Procedures CLOSURE SKIN & SUBCUTANEOUS NEC (06/01/10) DETOXIFICATION SERVICES FOR SUBSTANCE ABUSE TREATMENT (08/03/16) INSERTION OF ENDOTRACHEAL AIRWAY INTO TRACHEA, VIA OPENING (03/24/16) Medications - Medications Current Medications: Current Medications Folic Acid (Folic Acid) 1 mg PO DAILY BAUDILIO Stop: 09/02/16 09:01 Last Admin: 08/05/16 09:44 Dose: 1 mg Ceftriaxone Sodium 1,000 mg/ (Dextrose/Water) 100 mls @ 200 mls/hr IV Q24H BAUDILIO PRN Reason: Protocol Stop: 09/03/16 02:01 Last Infusion: 08/05/16 02:13 Dose: Infused Pantoprazole Sodium 40 mg/ (Sodium Chloride) 100 mls @ 400 mls/hr IV Q24H BAUDILIO Stop: 09/03/16 09:01 Last Admin: 08/05/16 09:39 Dose: 400 mls/hr Lactulose (Enulose) 10 g PO DAILY BAUDILIO Stop: 09/04/16 09:01 Last Admin: 08/05/16 09:51 Dose: 10 g Thiamine HCl (Vitamin B-1) 100 mg PO DAILY BAUDILIO Stop: 09/02/16 09:01 Last Admin: 08/05/16 09:44 Dose: 100 mg Review of Systems - Review of Systems Generalized/Overall Review: Present: Weakness. Absent: Chills, Fever EENTM: Present: No Symptoms Reported Respiratory: Present: No Symptoms Reported Cardiac: Present: No Symptoms Reported Abdominal: Present: Nausea, Vomiting, Diarrhea. Absent: Hematemesis, Bright blood from rectum Genitourinary: Present: No Symptoms Reported Musculoskeletal: Present: No Symptoms Reported Neurological: Present: Other - poor recall, impulsive behavior Skin: Present: Dryness Endocrine: Present: Intolerance to Cold Physical Examination - Exam Vital Signs: Vital Signs - Last Taken Temp 37.0 C 08/05/16 10:00 Pulse 103 H 08/05/16 10:00 Resp 18 08/05/16 10:00 BP 107/78 08/05/16 10:00 Pulse Ox 99 08/05/16 10:00 O2 Oxygen Delivery Method Room Air Constitutional: Present: Alert, Cooperative, Other - oriented only to name, thinks at her appartment, Thin and frail, Looks Older than stated age ENT Exam: Present: normal ENT inspection Eye Exam: bilateral eye: normal inspection Neck: Present: full range of motion, normal inspection Breasts: Present: Exam deferred Respiratory: Present: no respiratory distress Cardiovascular/Chest: Present: regular rate, rhythm Abdomen: Present: other - protuberant, soft, denies pain or tenderness /Rectal: Present: Exam deferred Extremity: Present: normal range of motion Skin Exam: Present: pallor, other - excoriations 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, no motor/sensory deficits Appearance: Present: disheveled, impaired insight, impaired recent memory, impaired remote memory Eye contact: Present: cooperative, good eye contact Thoughts: Present: other - labile affect, poor recall - Results and Findings: Lab/Microbiology results last 24 hrs: Abnormal/Pending Laboratory Last 24 HRS 08/05/16 08/05/16 08/05/16 11:30 08:19 07:30 RBC 3.32 L Hgb 10.6 L Hct 30.1 L MCH 31.9 H RDW 20.2 H MPV 9.6 H Immature Gran % (Auto) 3.30 H Immature Gran # (Auto) 0.27 H Monocytes % 18.0 H Monocytes # 1.5 H Sodium 129 L Potassium Chloride Creatinine Est GFR (Non-Af Amer) Serum Osmolality Ferritin 1856 H AST ALT Total Protein Albumin Crossmatch 08/05/16 08/05/16 08/04/16 07:30 03:45 23:59 RBC Hgb Hct MCH RDW MPV Immature Gran % (Auto) Immature Gran # (Auto) Monocytes % Monocytes # Sodium 130 L 131 L Potassium 3.3 L Chloride 95 L Creatinine 0.38 L Est GFR (Non-Af Amer) 188 H D Serum Osmolality Ferritin AST 172 H ALT 79 H Total Protein 5.7 L Albumin 2.5 L Crossmatch 08/04/16 08/04/16 08/03/16 19:34 15:42 Unknown RBC Hgb Hct MCH RDW MPV Immature Gran % (Auto) Immature Gran # (Auto) Monocytes % Monocytes # Sodium 127 L 126 L Potassium Chloride Creatinine Est GFR (Non-Af Amer) Serum Osmolality 249 L Ferritin AST ALT Total Protein Albumin Crossmatch 08/03/16 03:35 RBC Hgb Hct MCH RDW MPV Immature Gran % (Auto) Immature Gran # (Auto) Monocytes % Monocytes # Sodium Potassium Chloride Creatinine Est GFR (Non-Af Amer) Serum Osmolality Ferritin AST ALT Total Protein Albumin Crossmatch See Detail Culture 08/03/16 03:35 Blood Culture - Preliminary Blood NO GROWTH AFTER 48 HOURS - Assessments/Findings (1) Anemia Diagnosis(s): Has apparently been anemic before, however marked decrease in Hgb with rehydration. No visible bleeding. Has UGI complaints. No recent colon studies IMPRESSION: Anemia, probably chronic from GI blood loss with acute decrease due to rehydration. RECOMMEND: EGD and Colonoscopy ( for single anesthetic and help with colon prep while hospitalized) Problem: Acute Qualifiers: Anemia type: unspecified type Qualified Code(s): D64.9 - Anemia, unspecified
[2016-08-05] MEDS ORDERED: SODIUM, POTASSIUM,MAG SULFATES 1 KIT KIT PO SCH (16:00)
[2016-08-06 05:52] LABS: Hematocrit 32.5 % (37.0-47.0); Hemoglobin 11.5 gm/dL (12.5-16.0); Mean Cell Volume 90.5 fl (78-100); Mean Corpuscular Hgb Conc 35.4 g/dl (32-36); Mean Platelet Volume 9.9 fl (6.0-9.5); Neutrophil # 3.6 K/mm3 (1.3-6.0); Platelet Count 273 K/mm3 (150-450); Red Blood Count 3.59 M/mm3 (4.2-5.4); Red Cell Distribution Width 20.2 % (11.5-14.0); White Blood Count 7.6 K/mm3 (4.0-10.5)
[2016-08-06 06:02] LABS: Anion Gap 11.6 mmol/L (6.8-13.8); BUN/Creatinine Ratio 12.8 (9.0-21.6); Calcium * 8.6 mg/dL (7.9-10.9); Carbon Dioxide 30.1 mmol/L (24-32.6); Estimated Creat Clear 113.2; Potassium 2.7 mmol/L (3.4-4.6)
[2016-08-06] MEDS ORDERED: POTASSIUM CHLORIDE 10 MEQ TABLET.SA PO ONE ×2 (06:38→17:00)
[2016-08-06] MEDS ORDERED: RINGERS SOLUTION,LACTATED 1,000 ML IV ONE (06:55)
[2016-08-06] MEDS: POTASSIUM CHLORIDE 100 ML IV SCH ×2 (08:37→10:56)
[2016-08-06] MEDS: MULTIVITAMINS 1 CAP CAPSULE PO SCH (08:41)
[2016-08-06] MEDS: THIAMINE HCL 100 MG TABLET PO SCH (08:41)
[2016-08-06] MEDS: FOLIC ACID 1 MG TABLET PO SCH (08:41)
[2016-08-06] MEDS: LACTULOSE 10 G/15 ML BTL PO SCH (08:42)
[2016-08-06] MEDS: PANTOPRAZOLE SODIUM 40 MG in NORMAL SALINE 100 ML IV SCH (08:45)
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
--- NOTE | 2016-08-06 16:06 | PN ---
Subjective - Date and Time Seen Date: 08/06/16 Time: 15:52 Subjective Narrative: Patient has had her EGD/Colonoscopy and has seen psychiatry. he is comfortable to send her home with her boyfriend. Objective - Review of Systems Generalized/Overall Review: Denies: Chills EENTM: Reports: No Symptoms Reported Respiratory: Denies: Cough, Shortness of Breath Cardiac: Denies: Chest Pain, Palpitations Abdominal: Denies: Nausea, Vomiting Genitourinary Symptoms: Denies: Urgency, Frequency Musculoskeletal Complaints: Denies: Joint Pain - Vitals Vitals: Last Vital Signs Temp 37.0 C 08/06/16 15:44 Pulse 100 08/06/16 15:44 Resp 18 08/06/16 15:44 BP 104/58 08/06/16 15:44 Pulse Ox 99 08/06/16 15:44 - Abnormal Lab Findings Abnormal Lab Findings: Abnormal Lab Results 08/03/16 08/06/16 08/06/16 Range/Units 23:30 05:15 05:15 RBC 3.59 L (4.2-5.4) M/mm3 Hgb 11.5 L (12.5-16.0) gm/dL Hct 32.5 L (37.0-47.0) % MCH 32.0 H (27-31) pg RDW 20.2 H (11.5-14.0) % MPV 9.9 H (6.0-9.5) fl Immature Gran % (Auto) 6.60 H (0.001-0.429) % Immature Gran # (Auto) 0.50 H (0.000-0.0310) K/mm3 Monocytes % 19.5 H (0.0-9) % Basophils % 1.7 H (0.0-1.0) % Monocytes # 1.5 H (0.0-1.0) k/mm3 Potassium 2.7 L (3.4-4.6) mmol/L Chloride 95 L (97-106) mmol/L Est GFR (Non-Af Amer) 147 H D (60-130) mL/min Random Glucose 124 H (70-110) mg/dL Transferrin 179 L mg/dL - Exam Constitutional: Present: Alert - AAO x 2, Cooperative, Looks Older than stated age ENT Exam: Present: hearing grossly normal Neck: Present: supple Breasts: Present: Exam deferred Respiratory: Present: decreased breath sounds, No rales, No wheezing Cardiovascular/Chest: Present: regular rate, rhythm, no JVD, no murmur Abdomen: Present: Normal bowel sounds, soft, nontender, nondistended, no hepatospenomegaly Extremity: Present: no pedal edema, no calf tenderness Assessment/Plan - Problems/Diagnosis (1) Hyponatremia Problem: Acute Narrative: resolved (2) Metabolic encephalopathy Problem: Acute Narrative: resolved. 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 (3) Abnormal liver enzymes Problem: Acute Narrative: likely due to alcohol hepatitis/cirrhosis. US shows normal liver/spleen/no Gb and biliary abnormality. Hep panel pending. (4) UTI (urinary tract infection) Problem: Acute Qualifiers: Urinary tract infection type: site unspecified Hematuria presence: with hematuria Qualified Code(s): N39.0 - Urinary tract infection, site not specified; R31.9 - Hematuria, unspecified Narrative: E.Coli UTI. will change to oral Cipro (5) Alcohol dependence Problem: Chronic Qualifiers: Complication of substance-induced condition: with unspecified complication Narrative: Dr. Egan has seen her and will start her on nalterxone and acamprosate. (6) Anemia Problem: Acute Qualifiers: Anemia type: unspecified type Qualified Code(s): D64.9 - Anemia, unspecified Narrative: EGD/Colonoscopy showed esophagitis, gastritis/duodenitis, hiatal hernia, scattered diverticulosis, polyps. . no varices. s/p BT. (7) Depression Problem: Chronic Qualifiers: Active/Remission status: currently active Narrative: Psych has evaluated and will start her on Topamax for mood swings.
[2016-08-06] MEDS: SUCRALFATE 1 G TABLET PO SCH ×2 (17:41→20:24)
--- NOTE | 2016-08-06 18:33 | OR ---
Operative Report - Dictated Report Narrative: Operative Report Date of operation: 08/06/2016 Preoperative diagnosis: Anemia Postoperative diagnosis: Esophagitis, hiatal hernia, gastropathy (pathology and CLOtest pending), duodenitis 3 mm polyp near the splenic flexure (biopsied and destroyed). 4 mm polyp near the presumed hepatic flexure (unable to biopsy or remove). Scattered diverticulosis Operation: EGD with biopsies. Colonoscopy with hot forceps polypectomy polypectomy near the splenic flexure. Surgeon: Dr Moreland Anesthesia: DAVID COTE CRNA Indications for procedure: The patient is a 55-year-old female admitted with altered mental status, who after hydration was found to be anemic. She is brought for endoscopy Findings: Distal esophagitis with small hiatal hernia. Significant gastropathy (pathology and CLOtest pending). Duodenitis. 3 mm polyp near the splenic flexure (biopsied and destroyed). Additional 4 mm polyp near the presumed hepatic flexure (unable to biopsy or destroy). Scattered diverticulosis Narrative of procedure: The patient was identified preoperatively, and prior to the administration of anesthetic a multidisciplinary timeout was observed EGD: With the patient in the recumbent position, a bite-block was placed, intravenous sedation was administered, and the patient's eyes covered with a towel. The flexible fiberoptic gastroscope was advanced into the posterior pharynx which appeared normal. The supraglottic larynx appeared normal. The cords appeared normal, moved well, and opposed in the midline. The scope was advanced under direct vision into the proximal esophagus which appeared normal. The esophagus appeared freely distensible with normal mucosa in the proximal two thirds. No esophageal varices were noted. There was significant circumferential inflammation of the distal one third of the esophagus with no ondina ulcerations or signs of active bleeding. The GE junction appeared normally distensible. There was a small hiatal hernia. The scope was advanced into the stomach which was insufflated with air. There was tafoya gastritic erythema and evidence of chronic gastropathy, but no ondina ulcerations or neoplastic lesions were appreciated including a retroflexed view of the gastric fundus. No gastric varices were apparent. There was no blood in the stomach. The scope was redirected toward the pylorus. The pylorus appeared patent. The scope was advanced into the duodenal bulb which appeared mildly inflamed but no active ulcers were present.. The scope was advanced further to the horizontal portion of the duodenum which appeared normal, specifically the villous architecture appeared well preserved and clear bile was present. The scope was slowly withdrawn through the duodenal bulb again revealing mild inflammation but confirming that no active ulcer was present. The scope was withdrawn into the stomach and labor representative biopsies of gastric mucosa obtained for CLOtest and pathology. The biopsy sites were seen to be hemostatic. The insufflated air was removed , the scope withdrawn from the patient, and this portion of the procedure terminated. COLONOSCOPY: The patient was then placed in the left lateral position, and the perineum was inspected. There was no evidence of pilonidal disease or skin breakdown. The external appearance of the anus was normal. Sphincter tone was good. The flexible fiberoptic colonoscope was inserted into the rectum which was insufflated with air. The rectal mucosa and submucosal vascular pattern appeared normal, the prep was seen to be complete. The scope was advanced through a tortuous sigmoid colon, up the descending colon, and around the splenic flexure where the triangular haustral architecture of the transverse colon was seen. There was a 3 mm polyp which was biopsied and then thoroughly destroyed with electrocautery. The site was seen to be complete and hemostatic. The scope was advanced across the transverse colon, where near the hepatic flexure a 4 mm polyp was visualized tangentially. While maneuvering to address the polyp, the scope advanced around the hepatic flexure to the cecum, where the confluence of tenia and the ileocecal valve were identified. The mucosa at this level appeared normal. The scope was then slowly withdrawn in a circular fashion so that all aspects of colonic mucosa were inspected. At the level of the polyp at the hepatic flexure, the scope retreated precipitously, and although the scope was again readvanced and the polyp briefly visualized, attempts to biopsy/remove the polyp were again met with precipitous retreat of the scope such that the polyp could not be successfully addressed. Multiple attempts were made however they were all unsuccessful. The colon was redundant and coarse but normal in caliber. The haustral architecture appeared well preserved throughout with no evidence of external compression. The mucosa and submucosal vascular pattern appeared normal, specifically there was no gross evidence to suggest colitis or inflammatory bowel disease and no AV malformations were seen. Several scattered small diverticular openings were identified. No ondina bleeding sites were seen. The scope was gradually withdrawn to the level of the rectum. As much insufflated air as possible was removed. The scope was withdrawn from the patient and the procedure terminated. The patient tolerated the anesthetic and procedure well without complication and was transferred back to her room awake and in stable condition. RECOMMENDATION: Her anemia appears secondary to chronic bleeding from esophagitis and gastropathy. Empirically treat with PPI, await CLOtest report, avoid mucosal irritants. She will require an interval colonoscopy to address the polyp near the hepatic flexure Reviewed and electronically signed
[2016-08-06] MEDS ORDERED: NICOTINE 14 MG PATC TD SCH (21:15)
[2016-08-07] MEDS ORDERED: NICOTINE 7 MG PATC TD ONE (01:36)
[2016-08-07 06:05] LABS: Hematocrit 30.7 % (37.0-47.0); Hemoglobin 10.5 gm/dL (12.5-16.0); Mean Cell Volume 92.2 fl (78-100); Mean Corpuscular Hemoglobin 31.5 pg (27-31); Mean Corpuscular Hgb Conc 34.2 g/dl (32-36); Mean Platelet Volume 9.6 fl (6.0-9.5); Neutrophil # 3.8 K/mm3 (1.3-6.0); Platelet Count 317 K/mm3 (150-450); Red Blood Count 3.33 M/mm3 (4.2-5.4); Red Cell Distribution Width 20.8 % (11.5-14.0); White Blood Count 7.2 K/mm3 (4.0-10.5)
[2016-08-07 06:10] LABS: Total Cells Counted 100
[2016-08-07 06:21] LABS: Anion Gap 10.6 mmol/L (6.8-13.8); BUN/Creatinine Ratio 9.5 (9.0-21.6); Calcium * 8.2 mg/dL (7.9-10.9); Carbon Dioxide 27.7 mmol/L (24-32.6); Estimated Creat Clear 126.7; Potassium 3.3 mmol/L (3.4-4.6)
[2016-08-07] MEDS: SUCRALFATE 1 G TABLET PO SCH ×2 (06:25→10:14)
[2016-08-07] MEDS ORDERED: PANTOPRAZOLE SODIUM 40 MG TABLET.EC PO SCH (07:00)
[2016-08-07 07:09] LABS: Eosinophil 1 % (0-3); Lymphocyte 15 % (20-51); Monocyte 18 % (0-9); Neutrophil 66 % (42-75); Neutrophil # 4.8 K/mm3 (1.3-6.0); Platelet Estimate Normal (NORMAL); RBC Morphology Normal (NORMAL)
[2016-08-07] MEDS ORDERED: POTASSIUM CHLORIDE 20 MEQ TABLET.SA PO ONE (08:06)
--- NOTE | 2016-08-07 08:15 | DS ---
(1) Hyponatremia Problem: Resolved (2) Metabolic encephalopathy Problem: Resolved (3) Abnormal liver enzymes Diagnosis(s): likely due to chronic alcohol dependence/cirrhosis Problem: Resolved (4) UTI (urinary tract infection) Problem: Acute Qualifiers: Urinary tract infection type: site unspecified Hematuria presence: with hematuria Qualified Code(s): N39.0 - Urinary tract infection, site not specified; R31.9 - Hematuria, unspecified (5) Alcohol dependence Problem: Chronic Qualifiers: Complication of substance-induced condition: with unspecified complication (6) Anemia Diagnosis(s): s/p BT, EGD and colosnocsopy- gastirits/esophagitis/duodenitis, polyps, scattered diverticulosis Problem: Acute Qualifiers: Anemia type: unspecified type Qualified Code(s): D64.9 - Anemia, unspecified (7) Depression Problem: Chronic Qualifiers: Active/Remission status: currently active (8) Dementia Diagnosis(s): 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 She was imprecise in providing information of her medical & psychosocial issues. She thinks we are in the calender year of " 2007," and that she was born in "1980" and when asked who the current president was, she said " I have to stop and think as I feel dizzy, " but her conversation meandered away from the question asked. The pt lives with a male cytology teacher/room mate who goes by PJ. He was reached via the telephone and he willingly provided the information surrounding the pt's scenario/situation at home. He states that pt's spouse 3 yrs ago and he has provided living accommodation for her for since then . He stated the Ms. Salazar cannot hold any employment but has been living off her 's estate settlement and he controls the finance, "even though there is not much left." He reports that for the last 3 months, it been getting extremely difficult to provide care for . She is weak and cannot do any chores in the house. She is forgetful and for instance, when she cant's find a cigarette stove cleaner, she will turn on the stove to light cigarettes and will forget to turn it off. This has happened 3 times in the last couple of months. He stated that for the last 1 week, pt has been refusing to eat and does not have much of an appetite. She drinks 1 pint of Vodka daily. PJ admits that he offers to buy for her as if he doesn't " she will find or use any means to get it." However, he stated that for the last 3-days, she has not drunk any alcohol as she has been unwell. Every day when he comes home from work, he says that he will find Ms. Salazar incontinent of urine on the couch and he assists her in taking a bath. Today, he states when got home from work, she found her covered in urine and feces and she was too weak to stand. He says that he could not take it anymore and called the EMS, and she was brought to the [facility] ER. He stated that he cannot provide living accommodation to Ms. Salazar after hospitalization unless she is independently functional so he can drive her to her family in [place]. She has two adult children who live in [place] and the relationship is estranged. Her mother has Alzheimer's and lives in [place] along with two pt's sisters. In the ED, the Head CT and CXR obtained did not have any acute findings. BMP showed Na level of 117 and K of 2.1 & Bilirubin level of 3.0. The UA showed presence of a UTI. She was admitted for severe, symptomatic, acute on chronic Hyponatremia & Hypokalemia. She was started on 3 % Hypertonic saline and she i back to normal levels. her K was also replenished. She was strated on IV protonix, Thiamine, Folic acid and put on withdrawal protocol. Her Hb went down to 7.8 from 10.3 on admission. She got 2 units of BT as she was light headed and was hypotensive. She was referred to General surgery and EGD/colonoscopy was done which showed gastritis, esophagitis , duodenitis, hiatal hernia, polyps and scatterred diverticulosis. She was referred tp Psychiatry and he feels dagoberto patient has TBI with Dementia. He is going to start her on naltrexone/acamporsate and topamax afte he sees her in the office next week. Procedures Performed: see notes below List Procedures: EGD and colonoscopy Discharge Disposition: Home self care Disposition: Home self-care Condition: Serious Discharge Activity: Activity as tolerated Discharge Diet: General/regular food Additional Patient Instructions (free text): Follow up with Dr. Egan next week. on 08-13-16 @ 2:00pm. Must stop by Dr. Mata office today and picking supervisor a new patient packet and to sign a release. May follow up with me x 1 on 08-14-16 @ 2:00pm with Dr. Temple. She needs to follow up with her PCP 2 weeks. Complete Home Medications List: Complete Home Medication List: Folic Acid 1 mg PO DAILY tablet 08/07/16 Multivitamins [Multivitamin Gerri] 1 cap PO DAILY capsule 08/07/16 Pantoprazole Sodium [Protonix] 40 mg PO DAILY@0700 tablet. 08/07/16 Sucralfate [Carafate] 1 g PO ACHS tablet 08/07/16 Thiamine HCl [Vitamin B-1] 100 mg PO DAILY tablet 08/07/16
[2016-08-07] MEDS: MULTIVITAMINS 1 CAP CAPSULE PO SCH (09:45)
[2016-08-07] MEDS: THIAMINE HCL 100 MG TABLET PO SCH (09:45)
[2016-08-07] MEDS: FOLIC ACID 1 MG TABLET PO SCH (09:45)
[2016-08-07 09:49] VITALS: BP 106/73
[2016-08-07] MEDS ORDERED: POTASSIUM CHLORIDE 20 MEQ TABLET.SA ONE (10:13)
[2016-08-07 14:52] LABS: Hepatitis C Antibody NON-REACTIVE (NON-REACTIVE); Hepatitis Panel Confirmation DNR
[2016-08-07 20:10] LABS: Hepatitis A IgM Antibody NON-REACTIVE (NON-REACTIVE); Hepatitis B Surface Antigen NON-REACTIVE (NON-REACTIVE)
== END 2016-08-07 13:20 | disposition home or self-care (01) | DRG 640 ==
LOC: ER 22:58 → MS 08-03 01:44
PROVIDERS: ADMIT Nurse Practitioner; ATTEND Internal Medicine
PROC: HZ2ZZZZ Detoxification Services for Substance Abuse Treatment (ICD-10-PCS; principal; 2016-08-03)
PROC: 4A033R1 Measurement of Arterial Saturation, Peripheral, Percutaneous Approach (ICD-10-PCS; 2016-08-03)
PROC: 30263N1 (ICD-10-PCS; 2016-08-04)
PROC: 0DB68ZX Excision of Stomach, Via Natural or Artificial Opening Endoscopic, Diagnostic (ICD-10-PCS; 2016-08-06)
PROC: 0DBL8ZX Excision of Transverse Colon, Via Natural or Artificial Opening Endoscopic, Diagnostic (ICD-10-PCS; 2016-08-06 07:00)
DX: E87.1 Hypo-osmolality and hyponatremia (principal); G93.41 Metabolic encephalopathy; N39.0 Urinary tract infection, site not specified; F10.288 Alcohol dependence with other alcohol-induced disorder; F10.24 Alcohol dependence with alcohol-induced mood disorder; F31.89 Other bipolar disorder; F10.27 Alcohol dependence with alcohol-induced persisting dementia; E86.0 Dehydration; E87.6 Hypokalemia; L89.152 Pressure ulcer of sacral region, stage 2; K20.9 Esophagitis, unspecified; K31.9 Disease of stomach and duodenum, unspecified; K63.5 Polyp of colon; K57.30 Diverticulosis of large intestine without perforation or abscess without bleeding; F60.3 Borderline personality disorder; F43.10 Post-traumatic stress disorder, unspecified; X58.XXXA Exposure to other specified factors, initial encounter; B96.20 Unspecified Escherichia coli [E. coli] as the cause of diseases classified elsewhere; K70.30 Alcoholic cirrhosis of liver without ascites
CPT/HCPCS: 36415; 36600; 43239; 45384; 70450; 71020; 76700; 80048; 80053; 80061; 80074; 80307; 81001; 82140; 82248; 82272; 82607; 82728; 82746; 82803; 82977; 83540; 83550; 83930; 83935; 84295; 84300; 84443; 84466; 85007; 85025; 85610; 85730; 86850; 86900; 87040; 87077; 87081; 87086; 87186; 88305; 88312; 88313; 93005; 94762; 96365; 96367; 96375; 97110; 97116; 97162; 97165; 97535; 99285; G0480; G0481; P9016

== ENCOUNTER 2016-09-24 23:14 | Inpatient (IN) | payer MEDICAID ==
--- NOTE | 2016-09-24 23:53 | ERNOTE ---
Back Pain ER HPI Presenting Symptoms: injury/pain to back Time Seen by Provider: 09/24/16 23:30 Source: patient Exam Limitations: no limitations Immunizations: IMMUNIZATION HX Immunizations Up to Date Yes History of Influenza Vaccine Yes Hx Pneumococcal Vaccination No Allergies/Adverse Reactions: Allergies tramadol Allergy (Severe, Verified 09/25/16 00:57) Other naproxen sodium [From Aleve] Allergy (Intermediate, Verified 09/25/16 00:57) Hives Penicillins Allergy (Intermediate, Verified 09/25/16 00:57) Hives Home Medications: HOME MEDICATIONS Aspirin 325 mg PO DAILY 08/09/16 [Last Taken Unknown] Acetaminophen [Tylenol] 325 mg PO TID PRN 09/25/16 [Last Taken Unknown] Cyclobenzaprine HCl 10 mg PO TID PRN 09/25/16 [Last Taken Unknown] Narrative: Pt comes in complaining of low back pain. She states it comes and goes. She states "I came off a stairway three months ago". I asked how tall was the stairway? She stated "two layers". I asked how many stairs there were. She stated "I wasn't on the stairway". I asked what happened with the stairway then. She said "I was next to it". I asked if she fell and she was not sure. Pt cannot say where her back hurts Timing: Reports: unsure Quality/Severity: Reports: moderate Location of pain: Reports: other - unsure Recent Injury?: Reports: possibly Possible Precipitating Factor: Reports: fall/near fall - ? Review of Systems - Narrative Narrative: Much of the ROS was given by the patients significant other. Pt has difficulty focusing and rambles when asked questions - Review of Systems Constitutional: Present: fatigue, malaise, weight loss. Absent: recent illness EYE: Present: no symptoms reported ENT: Present: no symptoms reported Respiratory: Present: no symptoms reported Cardiology: Present: no symptoms reported Gastrointestinal/Abdominal: Present: eating less, drinking less. Absent: abdominal pain Genitourinary: Present: decreased urinary output Musculoskeletal: Present: back pain, muscle pain. Absent: joint swelling Skin: Present: lesions Neurological: Present: dizziness/light-headedness Endocrine: Present: no symptoms reported Hematologic/Lymphatic: Present: no symptoms reported Psych: Present: other - Sig. other described significant personality change after a seizure the patient had back in March - Patient's Past Medical History Patient History - Medical: Alcohol Abuse, Depression Patient History - Cardiac/Respiratory: COPD Patient History - Cancer: No Hx of Cancer, Other Patient History - Surgical Procedures: Hysterectomy Patient History - Other: None LMP (females 10-50): Menopausal - Family History Mother Family History - Medical: History Unknown Father Family History - Medical: History Unknown - Social History Living Situations: home Psych History: No pertinent hx Smoking Status: Current every day smoker Have you smoked in the past 12 months: Yes Do you dip or chew tobacco: No Alcohol Use: heavy Drug Use: none, other - Immunizations Immunizations Up to Date: Yes Hx Pneumococcal Vaccination: No History of Influenza Vaccine: Yes Physical Exam - Physical Exam General Appearance: Present: wd/wn, alert, no apparent distress Head Exam: Present: normal inspection, no evidence of injury Eye Exam: Normal inspection: bilateral, PERRL: bilateral, EOMI: bilateral Ears, Nose, Throat: Present: normal ENT inspection Neck: Present: normal inspection, nontender Respiratory: Present: no respiratory distress, normal breath sounds, no accessory muscle use, lungs clear Cardiovascular/Chest: Present: no murmur, normal peripheral pulses, tachycardia Gastrointestinal/Abdominal: Present: nontender, nondistended - scaphoid, abnormal bowel sounds - hypoactive Back Exam: Present: other - diffuse tenderness Extremity Exam: Present: non-tender, no edema, other - very thin Neurological Exam: Present: alert, oriented - to self and place, disoriented to time Skin Exam: Present: normal color, warm/dry, other - small (2-3 mm) scabbed lesions over all her skin. They do not appear inflamed ED Progress - Results and Orders Patient's Lab Results:: I have reviewed the patient's lab results. Results and Orders: Laboratory Tests 09/24/16 09/24/16 00:00 00:00 WBC 8.1 Hct 16.5 L* D Sodium 122 L Potassium 2.4 L* Chloride 75 L Carbon Dioxide 30.3 Anion Gap 19.1 H BUN 52 H D Creatinine 1.79 H D Est GFR (Non-Af Amer) 31 L D BUN/Creatinine Ratio 29.1 H Random Glucose 87 Calcium 9.5 Total Bilirubin 1.2 H AST 67 H ALT 41 Alkaline Phosphatase 158 Total Protein 6.5 Albumin 2.7 L TSH 4.426 H Salicylates 10.2 Acetaminophen 1.0 L Ethyl Alcohol Less than 3.0 - Vital Signs Patient's Vital Signs:: I have reviewed the patient's vital signs. Vital Signs: Vital Signs 09/24/16 23:19 Temperature 37.1 C Pulse Rate 113 H Respiratory 20 Rate Blood Pressure 78/46 O2 Sat by Pulse 95 Oximetry - CT/Ultrasound CT/Ultrasound Narrative: CT head without contrast: Global atrophy with enlargement of CSF spaces. Chronic microvascular changes of the white matter No mass or ischemic changes - Progress/Reassessment Chief Complaint: Back Pain Progress Note-Subjective: 09/25/16 00:13 lab called with H/H ordered 2 units PRBC type and cross 09/25/16 01:23 Spoke with Alyx BIRD about possible admission. She will call Dr. Chavez and discuss it first. 09/25/16 04:[address] Chavez agreed with admit. Pt given PRBC's in the ED Departure Clinical Impression: Hyponatremia, Hypokalemia, Hypochloremia Anemia Qualifiers: Anemia type: unspecified type Qualified Code(s): D64.9 - Anemia, unspecified - Departure Disposition: [facility] Condition: Fair
[2016-09-25] LABS: Mean Cell Volume 91.7 fl (78-100); Mean Corpuscular Hemoglobin 31.7 pg (27-31); Mean Corpuscular Hgb Conc 34.5 g/dl (32-36); Mean Platelet Volume 8.9 fl (6.0-9.5); Neutrophil # 5.7 K/mm3 (1.3-6.0); Neutrophil % 70.6 % (42-75.0); Platelet Count 397 K/mm3 (150-450); Red Cell Distribution Width 22.3 % (11.5-14.0); White Blood Count 8.1 K/mm3 (4.0-10.5)
[2016-09-25 00:02] LABS: Hemoglobin 5.7 gm/dL (12.5-16.0)
[2016-09-25 00:03] LABS: Hematocrit 16.5 % (37.0-47.0)
[2016-09-25] MEDS ORDERED: FUROSEMIDE 10 MG/ML VIAL IV ONE (00:08)
[2016-09-25] MEDS ORDERED: ACETAMINOPHEN 325 MG TABLET PO ONE (00:08)
[2016-09-25] MEDS ORDERED: diphenhydrAMINE HCL 50 MG/ML VIAL IV ONE (00:08)
[2016-09-25 00:42] LABS: ALT 41 U/L (19-67); AST 67 U/L (0-48); Albumin * 2.7 gm/dl (3.4-5.0); Alkaline Phosphatase * 158 U/L (50-170); Anion Gap 19.1 mmol/L (6.8-13.8); BUN/Creatinine Ratio 29.1 (9.0-21.6); Bilirubin, Total 1.2 mg/dL (0.0-1.1); Blood Urea Nitrogen 52 mg/dL (3-23); Ca. Corrected For Albumin 10.2 mg/dL (8.4-10.2); Calcium * 9.5 mg/dL (7.9-10.9); Carbon Dioxide 30.3 mmol/L (24-32.6); Chloride 75 mmol/L (97-106); Glucose * 87 mg/dL (70-110); Salicylate 10.2 mg/dL (2.8-20.0); Sodium 122 mmol/L (132-142); TSH * 4.426 uIU/mL (0.358-3.74); Total Protein 6.5 gm/dL (6.2-8.2)
[2016-09-25 00:47] LABS: Potassium 2.4 mmol/L (3.4-4.6)
[2016-09-25] MEDS ORDERED: NORMAL SALINE 1,000 ML IV PRN ×2 (01:06→05:32)
[2016-09-25] MEDS ORDERED: POTASSIUM CHLORIDE 100 ML IV ONE (01:06)
[2016-09-25] MEDS ORDERED: POTASSIUM CHLORIDE 100 ML IV SCH (03:00)
[2016-09-25] MEDS ORDERED: ACETAMINOPHEN 325 MG TABLET PO PRN (03:05)
[2016-09-25] MEDS ORDERED: PANTOPRAZOLE SODIUM 40 MG in NORMAL SALINE 100 ML IV ONE (03:06)
--- NOTE | 2016-09-25 03:12 | HP ---
Chief Complaint - Chief Complaint Date of Service: 09/25/16 Time of Service: 03:07 Chief Complaint: "Abominal pain". Source of HPI-Pt; unreliable, ER provider report, pt's EMR. History of Present Illness: Ms. Salazar is a 55-yr-old WF pt with a PMH of: Anemia, Bipolar Disoder, CVA , COPD, ETOH dependence, PTSD, Seizures. Pt does not appear to be a precise historian in providing information surrounding her illness. Pt lives with a male residential installer who goes by the name PJ whom I was able to reach by phone. He states that Ms. Sibley has not been eating well for several weeks. The most she can eat during meals is only 3 tbs of food. She has been bed ridden since the last hospitalization here at the [facility]. He states that each time he calls the EMS for her to be brought to the hospital, she answers questions appropriately and appears to have a sound mind in declining help and therefore they end up leaving. He also states that Ms. Salazar has been drinking daily since being discharged from the last hospitalization in July,. She drinks 1/2 pint of vodka daily, but she has not had any alcoholic beverage for the past 3-4 days. He denies Ms. Salazar having any bloody stools or vomiting blood , but prior to the admission in July, he says she had multiple episodes of vomiting blood. He called the EMS today as whenever he tried to help her with ambulation, she would 'scream due to pain all over and from being touched.' At the ED, she was found to be Anemic with a H& H of 5.7/16.5. She also had electronic imbalances with a Na of 122, and K of 2.4. At the time of physical examination, pt is noted to be symptomatic with weakness. Otherwise, she is alert and oriented x 3, easily gets distracted from examination questions, appears forgetful but does not appear SOB. She reports having epigastric pain and says that her stomach hurts when she eats food. Off note, she was admitted at the [facility] on 08/02-08/07 for AMS, Hyponatremia ( 117) and hypokalemia (2.1). Her hgb dropped during that admission from 10.3 to 7.8. She had an EGD/ Colonosopy by general surgery which showed gastritis, esophagitis, duodenitis, hiatal hernia, polyps and scattered diverticulosis. Based on the laboratory findings, its is a reasonable expectation that she needs 2 midnight stay to restore electrolyte imbalances and to correct her H & H. - Patient's Past Medical History Patient History - Medical: Alcohol Abuse, Depression Patient History - Cardiac/Respiratory: COPD, Other - Seizures. Patient History - Cancer: No Hx of Cancer, Other Patient History - Surgical Procedures: Hysterectomy Patient History - Other: None LMP (females 10-50): Menopausal - Family History Mother Family History - Medical: History Unknown Father Family History - Medical: History Unknown - Social History Living Situations: home Psych History: No pertinent hx Smoking Status: Current every day smoker Have you smoked in the past 12 months: Yes Do you dip or chew tobacco: No Alcohol Use: heavy Drug Use: none, other - Immunizations Immunizations Up to Date: Yes Hx Pneumococcal Vaccination: No History of Influenza Vaccine: Yes Review Of Systems (GEN) - Review of Systems Generalized/Overall Review: Present: Weakness, Chills, Weight loss. Absent: Fever, Malaise EENTM: Absent: Eye Pain, Blurred Vision, Nose Congestion Respiratory: Absent: Cough, Shortness of Breath Cardiac: Absent: Chest Pain, Edema, Palpitations Abdominal: Present: Nausea, Vomiting, Abdominal Pain. Absent: Hematemesis, Constipation, Diarrhea, Melena, Bright blood from rectum Genitourinary: Absent: Burning, Itching, Frequency, Hematuria Musculoskeletal: Present: Back Pain. Absent: Joint Pain, Joint Swelling Neurological: Present: Seizure. Absent: Headache, Anxiety, Depressed Skin: Present: Dryness, Lesions Endocrine: Present: Intolerance to Cold. Absent: Intolerance to Heat, Increased Hunger, Increased Thirst Misc: All systems neg except as marked Allergies/Adverse Reactions: Allergies Allergy/AdvReac Type Severity Reaction Status Date / Time tramadol Allergy Severe Other Verified 09/25/16 00:57 naproxen sodium [From Aleve] Allergy Intermediate Hives Verified 09/25/16 00:57 Penicillins Allergy Intermediate Hives Verified 09/25/16 00:57 Home Medications: HOME MEDICATIONS Acetaminophen [Tylenol] 325 mg PO TID PRN 09/25/16 [Last Taken Unknown] Exam - Exam Vital Signs: Vital Signs - Last Taken Temp 37.1 C 09/24/16 23:19 Pulse 107 H 09/25/16 03:04 Resp 14 09/25/16 03:04 BP 89/55 09/25/16 03:04 Pulse Ox 96 09/25/16 03:04 Constitutional: Present: Alert, Oriented x3, Cooperative, No distress, Looks Older than stated age ENT Exam: Present: normal ENT inspection, hearing grossly normal, dry mucous membranes. Absent: nasal congestion, nasal drainage Eye Exam: bilateral eye: normal inspection, PERRL Neck: Present: full range of motion, supple, normal inspection Back Exam: Present: normal inspection, no CVA tenderness Respiratory: Present: lungs clear, No rales, No wheezing Cardiovascular/Chest: Present: normal peripheral pulses, regular rate, rhythm, no murmur Abdomen: Present: Normal bowel sounds, soft, tender - Mid epigastric area. /Rectal: Present: Exam deferred Extremity: Present: normal range of motion, non-tender, normal inspection Skin Exam: Present: other - scattered scabs Neurologic: Present: no motor/sensory deficits, alert, oriented x 3 Appearance: Present: disheveled, impaired insight Eye contact: Present: cooperative, good eye contact, normal speech Thoughts: Present: no apparent hallucination, incoherent - at times Diagnostic Studies: Laboratory Results WBC 8.1 K/mm3 (4.0-10.5) 09/24/16 00:00 RBC 1.80 M/mm3 (4.2-5.4) L 09/24/16 00:00 Hgb 5.7 gm/dL (12.5-16.0) L* D 09/24/16 00:00 Hct 16.5 % (37.0-47.0) L* D 09/24/16 00:00 MCV 91.7 fl (78-100) 09/24/16 00:00 MCH 31.7 pg (27-31) H 09/24/16 00:00 MCHC 34.5 g/dl (32-36) 09/24/16 00:00 RDW 22.3 % (11.5-14.0) H 09/24/16 00:00 Plt Count 397 K/mm3 (150-450) 09/24/16 00:00 MPV 8.9 fl (6.0-9.5) 09/24/16 00:00 Immature Gran % (Auto) 0.40 % (0.001-0.429) 09/24/16 00:00 Immature Gran # (Auto) 0.03 K/mm3 (0.000-0.0310) 09/24/16 00:00 Neutrophils % 70.6 % (42-75.0) 09/24/16 00:00 Lymphocytes % 14.9 % (20-51) L 09/24/16 00:00 Monocytes % 13.9 % (0.0-9) H 09/24/16 00:00 Eosinophils % 0.1 % (0.0-3.0) 09/24/16 00:00 Basophils % 0.1 % (0.0-1.0) 09/24/16 00:00 Nucleated RBC % 0.0 k/mm3 (0-1) 09/24/16 00:00 Neutrophils # 5.7 K/mm3 (1.3-6.0) 09/24/16 00:00 Lymphocytes # 1.2 k/mm3 (1.5-3.5) L 09/24/16 00:00 Monocytes # 1.1 k/mm3 (0.0-1.0) H 09/24/16 00:00 Eosinophils # 0.0 k/mm3 (0.0-0.7) 09/24/16 00:00 Absolute Basophils 0.0 k/mm3 (0.0-0.1) 09/24/16 00:00 Sodium 122 mmol/L (132-142) L 09/24/16 00:00 Plasma Sodium 122 mmol/L (130-142) L 09/24/16 00:00 Potassium 2.4 mmol/L (3.4-4.6) L* 09/24/16 00:00 Chloride 75 mmol/L (97-106) L 09/24/16 00:00 Carbon Dioxide 30.3 mmol/L (24-32.6) 09/24/16 00:00 Anion Gap 19.1 mmol/L (6.8-13.8) H 09/24/16 00:00 BUN 52 mg/dL (3-23) H D 09/24/16 00:00 Creatinine 1.79 mg/dL (0.4-1.4) H D 09/24/16 00:00 Est GFR (Non-Af Amer) 31 mL/min (60-130) L D 09/24/16 00:00 BUN/Creatinine Ratio 29.1 (9.0-21.6) H 09/24/16 00:00 Random Glucose 87 mg/dL (70-110) 09/24/16 00:00 Calcium 9.5 mg/dL (7.9-10.9) 09/24/16 00:00 Calcium Adj for Albumin 10.2 mg/dL (8.4-10.2) 09/24/16 00:00 Total Bilirubin 1.2 mg/dL (0.0-1.1) H 09/24/16 00:00 AST 67 U/L (0-48) H 09/24/16 00:00 ALT 41 U/L (19-67) 09/24/16 00:00 Alkaline Phosphatase 158 U/L (50-170) 09/24/16 00:00 Total Protein 6.5 gm/dL (6.2-8.2) 09/24/16 00:00 Albumin 2.7 gm/dl (3.4-5.0) L 09/24/16 00:00 TSH 4.426 uIU/mL (0.358-3.74) H 09/24/16 00:00 Salicylates 10.2 mg/dL (2.8-20.0) 09/24/16 00:00 Acetaminophen 1.0 mcg/mL (10.0-30.0) L 09/24/16 00:00 Ethyl Alcohol Less than 3.0 mg/dL (0.0-10.0) 09/24/16 00:00 Blood Type A Negative 09/25/16 00:25 Antibody Screen Negative 09/25/16 00:25 Crossmatch See Detail 09/25/16 00:25 Assessment/Plan - Assessment/Plan (1) Anemia Assessment: During this admission, pt's hgb/hct noted to be 5.7/16.5. No obvsious source of active bleeding noted. Pt denies hematochezia and hematemesis. She had Anemina work-up which included a EGD/Colonoscopy back in 08/06/[address] Moreland and it was found that she may have chronic bleeding from Esophagitis and Gastropathy and was treated with PPI. Will provide supportive cares with: transfusion with at least 4 units of PBRC, will monitor serial H&H, IV protonix, check occult stool. Consult Surgery in am. Problem: Acute (2) Hyponatremia Assessment: Pt noted to have Na level of 122. The pt appears asymptotic. Pt reported having poor appetite due to epigastric pain and has had occasional vomiting after eating and therefore this is likely a result from hypovolemic volume status. Will treat with isotonic saline for now. Monitor BMP. Problem: Acute (3) Hypokalemia Assessment: Noted to have K of 2.4 and symptomatic with weakness only. Replacement total of 80 mEq given (40 IV & 40 orally). Will give another [address] on telemetry monitoring. BMP in am. Problem: Acute (4) Alcohol dependence Assessment: Will start her Thiamine and folic acid daily. Monitor for withdrawals. Problem: Chronic Qualifiers: Complication of substance-induced condition: with unspecified complication (5) COPD (chronic obstructive pulmonary disease) Problem: Chronic
[2016-09-25] MEDS ORDERED: POTASSIUM CHLORIDE 40 MEQ/15 ML BTL PO ONE ×2 (03:30→21:32)
[2016-09-25] MEDS ORDERED: POTASSIUM CHLORIDE 40 MEQ/15 ML BTL ONE (04:58)
[2016-09-25 06:35] LABS: Anion Gap 17.1 mmol/L (6.8-13.8); BUN/Creatinine Ratio 33.1 (9.0-21.6); Calcium * 8.4 mg/dL (7.9-10.9); Carbon Dioxide 30.8 mmol/L (24-32.6); Potassium 3.9 mmol/L (3.4-4.6)
--- NOTE | 2016-09-25 07:07 | OR ---
Anesthesia Procedure Note - Anesthesia Procedure Note Date of Service: 09/25/16 Narrative: Vital Signs - Last Taken Temp 36.7 C 09/25/16 06:56 Pulse 93 09/25/16 06:56 Resp 16 09/25/16 06:56 BP 93/59 09/25/16 06:56 Pulse Ox 99 09/25/16 06:56 O2 Oxygen Delivery Method Room Air 09/25/16 07:04 ANESTHESIA PROCEDURE NOTE Date of Procedure: 09/25/2016 Time of procedure: 6:30 AM. Performed by: MEERA Gilbert CRNAP, MSN Preprocedure diagnosis: Anemia, electrolyte imbalance. Post procedure diagnosis: Same. Procedure: Venipuncture for IV access. Indications: Anemia, electrolyte imbalance, lack of venous access. Findings: See below. Details of the procedure: The patient was prepped with Betadine and alcohol, 0.1 mL of 1% lidocaine solution was injected at the intended IV site. A #24- gauge IV was started in the left hand, it was flushed with sterile saline solution and secured in place. EBL: Minimal. Fluids: N/A. Specimen: N/A. Post procedure condition: The patient tolerated the procedure well. No complications were noted. Thank you for this consultation. Sae Ngo CRNA, [employer], MSN
[2016-09-25] MEDS ORDERED: LORazepam 1 MG TABLET PO PRN (07:44)
[2016-09-25] MEDS ORDERED: LORazepam 2 MG/ML DISP.SYRIN IV PRN ×2 (07:44)
[2016-09-25] MEDS ORDERED: MULTIVIT INFUSN,ADULT 4,VIT K 10 ML, THIAMINE HCL 100 MG in NORMAL SALINE 1,000 ML IV ONE (07:44)
[2016-09-25] MEDS ORDERED: THIAMINE HCL 100 MG TABLET PO SCH (09:00)
[2016-09-25] MEDS ORDERED: MULTIVITAMINS 1 CAP CAPSULE PO SCH (09:00)
[2016-09-25] MEDS ORDERED: FOLIC ACID 1 MG TABLET PO SCH (09:00)
[2016-09-25] MEDS: PANTOPRAZOLE SODIUM 40 MG in NORMAL SALINE 100 ML IV SCH ×2 (09:27→20:19)
[2016-09-25 13:44] LABS: Hematocrit 28.9 % (37.0-47.0); Hemoglobin 10.1 gm/dL (12.5-16.0)
[2016-09-25] MEDS: NORMAL SALINE 1,000 ML IV PRN (17:59)
[2016-09-25 21:03] LABS: Hemoglobin 10.2 gm/dL (12.5-16.0)
[2016-09-25 21:13] LABS: Anion Gap 10.3 mmol/L (6.8-13.8); BUN/Creatinine Ratio 34.8 (9.0-21.6); Calcium * 8.1 mg/dL (7.9-10.9); Carbon Dioxide 31.7 mmol/L (24-32.6); Estimated Creat Clear 59.8
[2016-09-26] MEDS ORDERED: POTASSIUM CHLORIDE 40 MEQ/15 ML BTL PO ONE
[2016-09-26] MEDS: NORMAL SALINE 1,000 ML IV PRN (00:44)
[2016-09-26 05:59] LABS: Hematocrit 29.8 % (37.0-47.0); Hemoglobin 10.1 gm/dL (12.5-16.0); Mean Cell Volume 91.1 fl (78-100); Mean Corpuscular Hemoglobin 30.9 pg (27-31); Mean Corpuscular Hgb Conc 33.9 g/dl (32-36); Mean Platelet Volume 9.5 fl (6.0-9.5); Platelet Count 323 K/mm3 (150-450); Red Blood Count 3.27 M/mm3 (4.2-5.4); Red Cell Distribution Width 18.7 % (11.5-14.0); White Blood Count 6.3 K/mm3 (4.0-10.5)
[2016-09-26 06:25] LABS: Anion Gap 11.2 mmol/L (6.8-13.8); BUN/Creatinine Ratio 28.6 (9.0-21.6); Calcium * 7.9 mg/dL (7.9-10.9); Carbon Dioxide 28.1 mmol/L (24-32.6); Potassium 4.3 mmol/L (3.4-4.6)
[2016-09-26] MEDS ORDERED: BISACODYL 10 MG SUPP.RECT RC ONE (06:54)
[2016-09-26] MEDS ORDERED: PANTOPRAZOLE SODIUM 40 MG TABLET.EC PO SCH (08:00)
--- NOTE | 2016-09-26 08:02 | DS ---
(1) Normocytic anemia Diagnosis(s): Acute on Chronic Problem: Acute (2) LEIA (acute kidney injury) Problem: Resolved (3) Severe malnutrition Problem: Chronic (4) Alcohol use disorder, severe, dependence Problem: Chronic (5) Elevated TSH Problem: Acute (6) Hypokalemia Problem: Resolved (7) Hyponatremia Problem: Acute Description of Stay: ADMISSION DATE: 09/25/2016 DATE PATIENT LEFT AMA: 09/26/2016 ADMISSION HPI BY MARGE RAMACHANDRAN: Ms. Salazar is a 55-yr-old WF pt with a PMH of: Anemia, Bipolar Disoder, CVA , COPD, ETOH dependence, PTSD, Seizures. Pt does not appear to be a precise historian in providing information surrounding her illness. Pt lives with a male sammying machine operator who goes by the name PJ whom I was able to reach by phone. He states that Ms. Sibley has not been eating well for several weeks. The most she can eat during meals is only 3 tbs of food. She has been bed ridden since the last hospitalization here at the [facility]. He states that each time he calls the EMS for her to be brought to the hospital, she answers questions appropriately and appears to have a sound mind in declining help and therefore they end up leaving. He also states that Ms. Salazar has been drinking daily since being discharged from the last hospitalization in July,. She drinks 1/2 pint of vodka daily, but she has not had any alcoholic beverage for the past 3-4 days. He denies Ms. Salazar having any bloody stools or vomiting blood , but prior to the admission in July, he says she had multiple episodes of vomiting blood. He called the EMS today as whenever he tried to help her with ambulation, she would 'scream due to pain all over and from being touched.' At the ED, she was found to be Anemic with a H& H of 5.7/16.5. She also had electronic imbalances with a Na of 122, and K of 2.4. At the time of physical examination, pt is noted to be symptomatic with weakness. Otherwise, she is alert and oriented x 3, easily gets distracted from examination questions, appears forgetful but does not appear SOB. She reports having epigastric pain and says that her stomach hurts when she eats food. Off note, she was admitted at the [facility] on 08/02-08/07 for AMS, Hyponatremia ( 117) and hypokalemia (2.1). Her hgb dropped during that admission from 10.3 to 7.8. She had an EGD/ Colonosopy by general surgery which showed gastritis, esophagitis, duodenitis, hiatal hernia, polyps and scattered diverticulosis. Based on the laboratory findings, its is a reasonable expectation that she needs 2 midnight stay to restore electrolyte imbalances and to correct her H & H. PROBLEM BASED HOSPITAL COURSE: Acute on chronic normocytic anemia -Likely multifactorial and secondary to anemia of chronic disease as well as chronic GI blood loss. -No signs of active bleeding -Patient transfused 2 units of packed red blood cells during her admission LEIA -Prerenal secondary intravascular volume depletion due to poor PO intake. -Patient was treated with IVF hydration and her kidney function returned to normal prior to leaving the hospital Hypovolemic hyponatremia -Again, secondary to poor PO intake. -There was no indication for rapid correction of the patient's sodium with hypertonic saline as the patient is relatively asymptomatic. The appropriate treatment for hypovolemic hyponatremia is volume repletion with normal saline; thus, the patient was on IVF hydration with NS during her hospital stay Hypokalemia -Again, secondary to poor PO intake. Potassium replaced as needed during her stay and her potassium level was WNL at 4.3 on 09/26/2016 Severe Malnutrition -Most likely due to consuming all of her calories from alcohol. Another possibility is malabsorption possibly related to chronic pancreatitis. Lipase level within normal limits. Vitamin D level and pancreatic elastase results were pending at the time the patient left AMA. Elevated TSH -It is unclear why a TSH was checked in the emergency department. Having an abnormal TSH in a patient who is acutely ill is not very useful as the patient could very likely have sick euthyroid syndrome. I would recommend rechecking a TSH as an outpatient if and when the patient is stable and back to her baseline. Alcohol Use Disorder -Patient given daily thiamine and folate supplementation during her hospital stay. She also received a banana bag and CIWA protocol orders were in place. THE PATIENT LEFT AMA ON 09/26/2016. FOLLOW-UP APPOINTMENTS: -The patient should follow-up with her primary care physician within one week NEW OR CHANGED MEDICATIONS: -Folic Acid 1mg PO daily -Multivitamin PO daily -Thiamine 100mg PO daily -Pantoprazole 40mg PO daily DISCONTINUED MEDICATIONS: None RADIOLOGY REPORTS: Head CT without contrast on 09/25/2016 showed: Severe cerebral volume loss present, likely age-related. Periventricular white matter chronic ischemic changes are present. Intracranial atherosclerotic calcifications noted. No acute intracranial hemorrhage. No midline shift or herniation. [place]-white matter differentiation is grossly intact. No obvious soft tissue swelling or scalp hematoma noted. School grossly intact without signs of depressed skull fracture. Visualized portions of the paranasal sinuses are clear. Mastoid air cells are grossly clear. IMPRESSION: No acute intracranial hemorrhage or mass effect. Procedures Performed: none Results and Findings: Laboratory Tests 09/24/16 09/24/16 09/25/16 00:00 00:00 06:25 WBC 8.1 Hgb 5.7 L* D Hct 16.5 L* D Plt Count 397 Sodium 122 L 125 L Potassium 2.4 L* 3.9 D Chloride 75 L 81 L Creatinine 1.79 H D 1.33 D Calcium Adj for Albumin 10.2 Total Bilirubin 1.2 H AST 67 H ALT 41 Alkaline Phosphatase 158 Total Protein 6.5 Albumin 2.7 L Lipase TSH 4.426 H Stool Occult Blood Salicylates 10.2 Acetaminophen 1.0 L Ethyl Alcohol Less than 3.0 09/25/16 09/25/16 09/25/16 13:34 13:50 21:00 WBC Hgb 10.1 L 10.2 L Hct Plt Count Sodium Potassium Chloride Creatinine Calcium Adj for Albumin Total Bilirubin AST ALT Alkaline Phosphatase Total Protein Albumin Lipase TSH Stool Occult Blood Negative Salicylates Acetaminophen Ethyl Alcohol 09/25/16 09/26/16 09/26/16 21:00 05:52 05:52 WBC 6.3 D Hgb 10.1 L Hct 29.8 L Plt Count 323 Sodium 130 L 132 Potassium 3.0 L D 4.3 D Chloride 91 L 97 Creatinine 0.89 0.70 Calcium Adj for Albumin Total Bilirubin AST ALT Alkaline Phosphatase Total Protein Albumin Lipase 234 TSH Stool Occult Blood Salicylates Acetaminophen Ethyl Alcohol Discharge Disposition: Home self care - Home with [facility] Disposition: Home self-care Condition: Fair Discharge Activity: Activity as tolerated Discharge Diet: General/regular food Additional Patient Instructions (free text): CH new at discharge. Please call report and fax orders upon discharge. Prescriptions (Any new or edited meds): Folic Acid 1 mg PO DAILY #30 tablet Multivitamins [Multivitamin Gerri] 1 cap PO DAILY #30 capsule Pantoprazole Sodium [Protonix] 40 mg PO DAILY@0700 #30 tablet. Thiamine HCl [Vitamin B-1] 100 mg PO DAILY #30 tablet Complete Home Medications List: Complete Home Medication List: Folic Acid 1 mg PO DAILY #30 tablet 09/26/16 Multivitamins [Multivitamin Gerri] 1 cap PO DAILY #30 capsule 09/26/16 Pantoprazole Sodium [Protonix] 40 mg PO DAILY@0700 #30 tablet. 09/26/16 Thiamine HCl [Vitamin B-1] 100 mg PO DAILY #30 tablet 09/26/16
[2016-09-26] MEDS ORDERED: POLYETHYLENE GLYCOL 3350 119 GM BTL PO SCH (09:00)
[2016-09-26 16:29] VITALS: BP 137/76
[2016-09-26] MEDS ORDERED: SENNOSIDES 8.6 MG TABLET PO SCH (21:00)
[2016-09-29 08:23] LABS: Vitamin D, 25-OH, D3 13 ng/mL
== END 2016-09-26 10:20 | disposition left against medical advice (07) | DRG 682 ==
LOC: ER 23:14 → MS 09-25 02:09
PROVIDERS: ADMIT Nurse Practitioner; ATTEND Internal Medicine
PROC: 30233N1 Transfusion of Nonautologous Red Blood Cells into Peripheral Vein, Percutaneous Approach (ICD-10-PCS; principal; 2016-09-24)
DX: N17.9 Acute kidney failure, unspecified (principal); E43 Unspecified severe protein-calorie malnutrition; E87.1 Hypo-osmolality and hyponatremia; Z68.1 Body mass index [BMI] 19.9 or less, adult; D62 Acute posthemorrhagic anemia; F10.20 Alcohol dependence, uncomplicated; E87.6 Hypokalemia; F17.210 Nicotine dependence, cigarettes, uncomplicated; K29.70 Gastritis, unspecified, without bleeding; J44.9 Chronic obstructive pulmonary disease, unspecified; J45.909 Unspecified asthma, uncomplicated; D50.0 Iron deficiency anemia secondary to blood loss (chronic)
CPT/HCPCS: 36415; 36430; 70450; 80048; 80053; 82272; 82306; 83690; 84443; 85014; 85018; 85025; 85027; 86850; 86900; 93005; 94762; 96365; 97165; 99285; G0480; G0481; P9016

== ENCOUNTER 2016-10-16 21:22 | Inpatient (IN) | payer MEDICAID ==
--- NOTE | 2016-10-16 21:33 | ERNOTE ---
Abdominal HPI - General Chief Complaint: Dyspnea Time Seen by Provider: 10/16/16 21:24 Source: patient, EMS Exam Limitations: no limitations - Immun/Allergies/Home Medications Immunizatons: IMMUNIZATION HX Immunizations Up to Date Yes History of Influenza Vaccine Yes Hx Pneumococcal Vaccination No Allergies/Adverse Reactions: Allergies tramadol Allergy (Severe, Verified 09/25/16 00:57) Other naproxen sodium [From Aleve] Allergy (Intermediate, Verified 09/25/16 00:57) Hives Penicillins Allergy (Intermediate, Verified 09/25/16 00:57) Hives Home Medications: HOME MEDICATIONS Folic Acid 1 mg PO DAILY #30 tablet 09/26/16 [Last Taken Unknown] Multivitamins [Multivitamin Gerri] 1 cap PO DAILY #30 capsule 09/26/16 [Last Taken Unknown] Pantoprazole Sodium [Protonix] 40 mg PO DAILY@0700 #30 tablet. 09/26/16 [Last Taken Unknown] Thiamine HCl [Vitamin B-1] 100 mg PO DAILY #30 tablet 09/26/16 [Last Taken Unknown] - History of Present Illness Narrative: Pt brought by EMS due to N/V, shortness of breath and mental status changes. Pt 's sig. other called because pt has been vomiting, coughing and her MS has been declining. Timing: getting worse Quality: moderate, severe Activities at Onset: none Prior Treatment: Present: recently hospitalized - 3 weeks ago here for anemia and electrolyte abnormalities Review of Systems - Review of Systems Constitutional: Present: weakness, fatigue, malaise, decreased activity level. Absent: recent illness EYE: Present: no symptoms reported ENT: Present: no symptoms reported Respiratory: Present: cough Cardiology: Absent: chest pain Gastrointestinal/Abdominal: Present: nausea, vomiting, abdominal pain Genitourinary: Present: frequency Musculoskeletal: Present: no symptoms reported Skin: Present: no symptoms reported Neurological: Present: weakness, other - decreased mental status Endocrine: Present: no symptoms reported Hematologic/Lymphatic: Present: no symptoms reported Psych: Present: no symptoms reported - Patient's Past Medical History Patient History - Medical: Alcohol Abuse, Depression Patient History - Cardiac/Respiratory: COPD, Other - Seizures. Patient History - Cancer: No Hx of Cancer, Other Patient History - Surgical Procedures: Hysterectomy Patient History - Other: None - Family History Mother Family History - Medical: History Unknown Father Family History - Medical: History Unknown - Social History Living Situations: home Psych History: No pertinent hx Alcohol Use: heavy Drug Use: none, other - Immunizations Immunizations Up to Date: Yes Hx Pneumococcal Vaccination: No History of Influenza Vaccine: Yes Physical Exam - Physical Exam General Appearance: Present: alert, mild distress, other - Pt wanting to leave stating "there is nothing wrong with me" but cannot answer simple orientation questions. Head Exam: Present: normal inspection, no evidence of injury Eye Exam: Normal inspection: bilateral, EOMI: bilateral Neck: Present: supple, full range of motion Respiratory: Present: no respiratory distress, rales, rhonchi Cardiovascular/Chest: Present: regular rate, rhythm Gastrointestinal/Abdominal: Present: normal bowel sounds, nontender, nondistended, soft Back Exam: Present: normal range of motion Extremity Exam: Present: normal except - - very thin, no edema Neurological Exam: Present: alert, strand and binder controller [id number] nml as tested, disoriented to place Skin Exam: Present: warm/dry Lymphatic Exam: Present: no adenopathy ED Progress - Results and Orders Patient's Lab Results:: I have reviewed the patient's lab results. Results and Orders: Laboratory Tests 10/16/16 10/16/16 10/16/16 21:50 21:50 21:50 WBC 3.9 L Hgb 11.1 L Hct 32.0 L Plt Count 277 VBG pH Sodium 143 H Potassium 2.0 L* D Chloride 101 Carbon Dioxide 28.2 BUN 4 D Creatinine 0.48 Random Glucose 106 Lactic Acid, Venous 5.3 H* Calcium 8.4 Total Bilirubin 0.7 AST 543 H ALT 127 H Alkaline Phosphatase 381 H Ammonia Troponin I Less than 0.017 Total Protein 5.8 L Albumin 2.3 L Urine Color Urine Appearance Urine pH Ur Specific [place] Urine Protein Urine Glucose (UA) Urine Ketones Urine Blood Urine Nitrate Urine Bilirubin Urine Urobilinogen Ur Leukocyte Esterase Urine RBC Urine WBC Ur Epithelial Cells Amorphous Sediment Urine Bacteria Urine Culture Comments Ethyl Alcohol 10/16/16 10/16/16 10/16/16 22:16 23:08 23:08 WBC Hgb Hct Plt Count VBG pH 7.451 H Sodium Potassium Chloride Carbon Dioxide BUN Creatinine Random Glucose Lactic Acid, Venous Calcium Total Bilirubin AST ALT Alkaline Phosphatase Ammonia Less than 17.0 Troponin I Total Protein Albumin Urine Color Urine Appearance Urine pH Ur Specific [place] Urine Protein Urine Glucose (UA) Urine Ketones Urine Blood Urine Nitrate Urine Bilirubin Urine Urobilinogen Ur Leukocyte Esterase Urine RBC Urine WBC Ur Epithelial Cells Amorphous Sediment Urine Bacteria Urine Culture Comments Ethyl Alcohol 331.0 H 10/16/16 23:30 WBC Hgb Hct Plt Count VBG pH Sodium Potassium Chloride Carbon Dioxide BUN Creatinine Random Glucose Lactic Acid, Venous Calcium Total Bilirubin AST ALT Alkaline Phosphatase Ammonia Troponin I Total Protein Albumin Urine Color Yellow Urine Appearance Cloudy Urine pH 5.5 Ur Specific [place] 1.010 Urine Protein Negative Urine Glucose (UA) Negative Urine Ketones Negative Urine Blood Negative Urine Nitrate Positive H Urine Bilirubin Negative Urine Urobilinogen Normal Ur Leukocyte Esterase 25 H Urine RBC Trace Urine WBC 0-5 Ur Epithelial Cells 0-5 Amorphous Sediment Moderate - 2+ H Urine Bacteria 4+ H Urine Culture Comments Culture to follow Ethyl Alcohol - Vital Signs Patient's Vital Signs:: I have reviewed the patient's vital signs. - EKG EKG: supraventricular tachycardia, nonspecific ST T wave changes EKG read: Interp. by me - X-Ray X-Ray #1 X-Ray: chest Interpretation: Reviewed by me X-ray Comments: IMPRESSION: 1. NO ACUTE CARDIOPULMONARY PROCESS. Electronically signed by Peña Ling M.D.. - Progress/Reassessment Progress:: Improved Progress Note-Subjective: 10/16/16 22:41 Potassium found to be 2.0 and lactic acid 5.0. spoke with patient about critical abnormalities and pt refuses to believe that there is anything wrong with her. She continues to assert that she can just go home. 10/17/16 01:10 Spoke with Viji BIRD about admission. She agrees with inpatient admission Departure - Departure Clinical Impression: Hypokalemia, Altered awareness, transient, Alkalosis, metabolic, Transaminase or LDH elevation UTI (urinary tract infection) Qualifiers: Urinary tract infection type: acute cystitis Hematuria presence: without hematuria Qualified Code(s): N30.00 - Acute cystitis without hematuria Sepsis Qualifiers: Sepsis type: sepsis due to unspecified organism Qualified Code(s): A41.9 - Sepsis, unspecified organism Disposition: [facility] Condition: Fair
[2016-10-16] MEDS ORDERED: ALBUTEROL SULFATE/IPRATROPIUM 3 ML NEBU IH ONE ×3 (21:37→22:15)
[2016-10-16 21:53] LABS: Hemoglobin 11.1 gm/dL (12.5-16.0); Mean Cell Volume 91.2 fl (78-100); Mean Corpuscular Hemoglobin 31.6 pg (27-31); Mean Corpuscular Hgb Conc 34.7 g/dl (32-36); Neutrophil # 1.8 K/mm3 (1.3-6.0); Neutrophil % 45.4 % (42-75.0); Platelet Count 277 K/mm3 (150-450); Red Blood Count 3.51 M/mm3 (4.2-5.4); Red Cell Distribution Width 19.9 % (11.5-14.0); White Blood Count 3.9 K/mm3 (4.0-10.5)
[2016-10-16 22:19] LABS: ALT 127 U/L (19-67); AST 543 U/L (0-48); Albumin * 2.3 gm/dl (3.4-5.0); Alkaline Phosphatase * 381 U/L (50-170); Anion Gap 15.8 mmol/L (6.8-13.8); BUN/Creatinine Ratio 8.3 (9.0-21.6); Bilirubin, Total 0.7 mg/dL (0.0-1.1); Blood Urea Nitrogen 4 mg/dL (3-23); Ca. Corrected For Albumin 9.4 mg/dL (8.4-10.2); Calcium * 8.4 mg/dL (7.9-10.9); Carbon Dioxide 28.2 mmol/L (24-32.6); Chloride 101 mmol/L (97-106); Glucose * 106 mg/dL (70-110); Sodium 143 mmol/L (132-142); Total Protein 5.8 gm/dL (6.2-8.2); Troponin I Less than 0.017 ng/ml (0.00-0.10)
[2016-10-16] MEDS: POTASSIUM CHLORIDE/NS 1,000 ML IV SCH (23:23)
[2016-10-16 23:33] LABS: Urine Bilirubin Negative (NEGATIVE); Urine Blood Negative /ul (NEGATIVE); Urine Ketone Negative (NEGATIVE); Urine Protein Negative (NEGATIVE); Urine Urobilinogen Normal (NORMAL); Urine pH 5.5 pH (5.0-7.0)
[2016-10-16 23:45] LABS: Urine Amorphous Sediment Moderate - 2+ (NONE-FEW); Urine Appearance Cloudy; Urine Bacteria 4+; Urine Color Yellow; Urine Nitrite Positive (NEGATIVE); Urine RBC TRACE /hpf (0-5); Urine WBC 0-5 /hpf (0-5)
[2016-10-17] MEDS: LEVOFLOXACIN/D5W 500 MG/100 ML BAG IV SCH (01:26)
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
[2016-10-17] MEDS: POTASSIUM CHLORIDE/NS 1,000 ML IV SCH ×2 (03:53→08:40)
[2016-10-17] MEDS: FOLIC ACID 1 MG TABLET PO SCH ×2 (03:54→08:42)
[2016-10-17] MEDS: MULTIVITAMINS 1 CAP CAPSULE PO SCH ×2 (03:54→08:42)
[2016-10-17] MEDS ORDERED: POTASSIUM CHLORIDE 20 MEQ TABLET.SA PO ONE (03:59)
[2016-10-17] MEDS: NICOTINE 21 MG PATC TD SCH ×2 (04:00→08:43)
[2016-10-17] MEDS: THIAMINE HCL 100 MG TABLET PO SCH ×2 (04:01→08:42)
[2016-10-17] MEDS: PANTOPRAZOLE SODIUM 40 MG TABLET.EC PO SCH ×2 (04:02→07:14)
[2016-10-17] MEDS: ONDANSETRON HCL/PF 2 MG/ML VIAL IV PRN (05:27)
[2016-10-17 06:25] LABS: Albumin * 2.1 gm/dl (3.4-5.0); Anion Gap 25.1 mmol/L (6.8-13.8); BUN/Creatinine Ratio 7.1 (9.0-21.6); Ca. Corrected For Albumin 8.8 mg/dL (8.4-10.2); Calcium * 7.6 mg/dL (7.9-10.9); Carbon Dioxide 17.3 mmol/L (24-32.6); Potassium 3.4 mmol/L (3.4-4.6); Total Protein 5.4 gm/dL (6.2-8.2)
[2016-10-17] MEDS ORDERED: NORMAL SALINE 1,000 ML IV ONE ×3 (07:32→11:21)
[2016-10-17] MEDS ORDERED: LORazepam 2 MG/ML DISP.SYRIN IV ONE (08:52)
[2016-10-17] MEDS ORDERED: HALOPERIDOL LACTATE 5 MG/ML VIAL IM ONE (08:53)
[2016-10-17] MEDS ORDERED: POTASSIUM PHOS M BASIC D BASIC IV SCH (11:30)
[2016-10-17] MEDS ORDERED: [UNRECOGNIZED DRUG - OTHER] IV SCH (11:30)
[2016-10-17] MEDS ORDERED: POTASSIUM CHLORIDE IV SCH (11:30)
[2016-10-17] MEDS: MAGNESIUM OXIDE 400 MG TABLET PO SCH ×3 (12:26→16:25)
[2016-10-17 16:18] LABS: Anion Gap 16.5 mmol/L (6.8-13.8); Carbon Dioxide 21.3 mmol/L (24-32.6); Phosphorus 2.5 mg/dL (2.2-4.2); Potassium 4.8 mmol/L (3.4-4.6)
[2016-10-17] MEDS ORDERED: POTASSIUM CHLORIDE 20 MEQ TABLET.SA PO SCH (17:00)
[2016-10-17] MEDS: POTASSIUM PHOS M BASIC D BASIC IV SCH (17:25)
[2016-10-17] MEDS: NORMAL SALINE IV SCH (17:25)
[2016-10-17] MEDS: DEXTROSE IV SCH (17:25)
[2016-10-18] MEDS: ONDANSETRON HCL/PF 2 MG/ML VIAL IV PRN ×2 (00:06→23:12)
[2016-10-18] MEDS: LEVOFLOXACIN/D5W 500 MG/100 ML BAG IV SCH (01:33)
[2016-10-18] MEDS: DEXTROSE IV SCH ×2 (04:33→14:53)
[2016-10-18] MEDS: NORMAL SALINE IV SCH ×2 (04:33→14:53)
[2016-10-18] MEDS: POTASSIUM PHOS M BASIC D BASIC IV SCH ×2 (04:33→14:53)
[2016-10-18 05:04] LABS: Hematocrit 24.8 % (37.0-47.0); Hemoglobin 8.4 gm/dL (12.5-16.0); Mean Corpuscular Hemoglobin 32.2 pg (27-31); Mean Corpuscular Hgb Conc 33.9 g/dl (32-36); Mean Platelet Volume 9.2 fl (6.0-9.5); Neutrophil % 60.5 % (42-75.0); Platelet Count 175 K/mm3 (150-450); Red Blood Count 2.61 M/mm3 (4.2-5.4); Red Cell Distribution Width 20.6 % (11.5-14.0)
[2016-10-18 05:28] LABS: ALT 106 U/L (19-67); AST 382 U/L (0-48); Albumin * 1.8 gm/dl (3.4-5.0); Alkaline Phosphatase * 329 U/L (50-170); Anion Gap 15.1 mmol/L (6.8-13.8); Bilirubin, Total 1.6 mg/dL (0.0-1.1); Ca. Corrected For Albumin 7.8 mg/dL (8.4-10.2); Calcium * 6.4 mg/dL (7.9-10.9); Carbon Dioxide 22.5 mmol/L (24-32.6); Chloride 105 mmol/L (97-106); Glucose * 100 mg/dL (70-110); Magnesium 0.9 mg/dL (1.2-2.8); Potassium 3.6 mmol/L (3.4-4.6); Sodium 139 mmol/L (132-142)
--- NOTE | 2016-10-18 06:57 | PN ---
Subjective - Date and Time Seen Date: 10/18/16 Time: 06:52 Subjective Narrative: Has no complaints this am, in fact is begging to go home! Uses excuse food is terrible here and wants to go home for some real food. Does complain of itching a lot this am. Objective - Review of Systems Generalized/Overall Review: Reports: No Symptoms Reported EENTM: Reports: No Symptoms Reported Respiratory: Reports: No Symptoms Reported Cardiac: Reports: No Symptoms Reported Abdominal: Reports: No Symptoms Reported. Denies: Nausea, Vomiting, Abdominal Pain Genitourinary Symptoms: Reports: No Symptoms Reported Musculoskeletal Complaints: Reports: No Symptoms Reported Neurological: Reports: No Symptoms Reported Skin: Reports: No Symptoms Reported Endocrine: Reports: No Symptoms Reported - Vitals Vitals: Last Vital Signs Temp 36.7 C 10/18/16 06:16 Pulse 110 H 10/18/16 06:16 Resp 12 10/18/16 06:16 BP 134/94 10/18/16 06:16 Pulse Ox 99 10/18/16 06:16 - Abnormal Lab Findings Abnormal Lab Findings: Abnormal Lab Results 10/17/16 10/17/16 10/17/16 Range/Units 08:47 10:21 15:14 RBC (4.2-5.4) M/mm3 Hgb (12.5-16.0) gm/dL Hct (37.0-47.0) % MCH (27-31) pg RDW (11.5-14.0) % Monocytes % (0.0-9) % Lymphocytes # (1.5-3.5) k/mm3 Potassium (3.4-4.6) mmol/L Carbon Dioxide (24-32.6) mmol/L Anion Gap (6.8-13.8) mmol/L BUN (3-23) mg/dL Est GFR (Non-Af Amer) (60-130) mL/min BUN/Creatinine Ratio (9.0-21.6) Lactic Acid, Venous 8.6 H* 8.0 H* 4.6 H* (0.4-1.9) mmol/L Calcium (7.9-10.9) mg/dL Calcium Adj for Albumin (8.4-10.2) mg/dL Magnesium (1.2-2.8) mg/dL Total Bilirubin (0.0-1.1) mg/dL AST (0-48) U/L ALT (19-67) U/L Alkaline Phosphatase (50-170) U/L Total Protein (6.2-8.2) gm/dL Albumin (3.4-5.0) gm/dl 10/17/16 10/18/16 10/18/16 Range/Units 15:14 05:02 05:02 RBC 2.61 L (4.2-5.4) M/mm3 Hgb 8.4 L (12.5-16.0) gm/dL Hct 24.8 L (37.0-47.0) % MCH 32.2 H (27-31) pg RDW 20.6 H (11.5-14.0) % Monocytes % 15.3 H (0.0-9) % Lymphocytes # 1.1 L (1.5-3.5) k/mm3 Potassium 4.8 H D (3.4-4.6) mmol/L Carbon Dioxide 21.3 L 22.5 L (24-32.6) mmol/L Anion Gap 16.5 H 15.1 H (6.8-13.8) mmol/L BUN Less than 3 L (3-23) mg/dL Est GFR (Non-Af Amer) 163 H D (60-130) mL/min BUN/Creatinine Ratio 7.0 L (9.0-21.6) Lactic Acid, Venous (0.4-1.9) mmol/L Calcium 6.4 L (7.9-10.9) mg/dL Calcium Adj for Albumin 7.8 L (8.4-10.2) mg/dL Magnesium 1.0 L 0.9 L (1.2-2.8) mg/dL Total Bilirubin 1.6 H (0.0-1.1) mg/dL AST 382 H (0-48) U/L ALT 106 H (19-67) U/L Alkaline Phosphatase 329 H (50-170) U/L Total Protein 5.0 L (6.2-8.2) gm/dL Albumin 1.8 L (3.4-5.0) gm/dl 10/18/16 Range/Units 05:02 RBC (4.2-5.4) M/mm3 Hgb (12.5-16.0) gm/dL Hct (37.0-47.0) % MCH (27-31) pg RDW (11.5-14.0) % Monocytes % (0.0-9) % Lymphocytes # (1.5-3.5) k/mm3 Potassium (3.4-4.6) mmol/L Carbon Dioxide (24-32.6) mmol/L Anion Gap (6.8-13.8) mmol/L BUN (3-23) mg/dL Est GFR (Non-Af Amer) (60-130) mL/min BUN/Creatinine Ratio (9.0-21.6) Lactic Acid, Venous 4.3 H* (0.4-1.9) mmol/L Calcium (7.9-10.9) mg/dL Calcium Adj for Albumin (8.4-10.2) mg/dL Magnesium (1.2-2.8) mg/dL Total Bilirubin (0.0-1.1) mg/dL AST (0-48) U/L ALT (19-67) U/L Alkaline Phosphatase (50-170) U/L Total Protein (6.2-8.2) gm/dL Albumin (3.4-5.0) gm/dl - Exam Constitutional: Present: Alert, Oriented x3, Cooperative, No distress, Looks Older than stated age ENT Exam: Present: hearing grossly normal Neck: Present: supple Respiratory: Present: chest non-tender, lungs clear, normal breath sounds Cardiovascular/Chest: Present: normal peripheral pulses, regular rate, rhythm, no chest tenderness, no murmur Abdomen: Present: Normal bowel sounds, no rebound tenderness, tender, guarding - RLQ Extremity: Present: non-tender, no pedal edema Skin Exam: Present: normal color Neurologic: Present: normal mood/affect, oriented x 3 Appearance: Present: appropriate appearance, neat Eye contact: Present: cooperative, good eye contact, increased rate of speech Thoughts: Present: normal thought pattern, no apparent hallucination Assessment/Plan - Problems/Diagnosis (1) Alkalosis, metabolic Problem: Acute Narrative: improved but still not corrected. continue IVF and recheck lactic acid in am. this is most likely due to EtOH, though appears to be more acidosis than alkalosis. (2) UTI (urinary tract infection) Problem: Acute Qualifiers: Urinary tract infection type: acute cystitis Hematuria presence: without hematuria Qualified Code(s): N30.00 - Acute cystitis without hematuria Narrative: continue abx. will change to po levaquin in am. (3) Alcohol abuse Problem: Acute Narrative: will start on librium to prevent w/d. (4) Anemia Problem: Acute Narrative: significant drop, will repeat in am to be sure stable. will start on PNV with Fe, guaiac stool. (5) COPD (chronic obstructive pulmonary disease) Problem: Chronic Narrative: appears stable no concerns at the present. (6) Discharge planning issues Problem: Acute Narrative: possibly d/c in am if metabolic acidosis is corrected.
[2016-10-18] MEDS: chlordiazePOXIDE HCL 25 MG CAPSULE PO SCH ×2 (07:34→20:22)
[2016-10-18] MEDS: PANTOPRAZOLE SODIUM 40 MG TABLET.EC PO SCH (07:34)
[2016-10-18] MEDS: MAGNESIUM OXIDE 400 MG TABLET PO SCH ×3 (08:31→16:16)
[2016-10-18] MEDS: FOLIC ACID 1 MG TABLET PO SCH (08:31)
[2016-10-18] MEDS: PRENATAL VITS96/IRON FUM/FOLIC 1 TAB TABLET PO SCH ×2 (08:31→20:23)
[2016-10-18] MEDS: THIAMINE HCL 100 MG TABLET PO SCH (08:31)
[2016-10-18] MEDS: NICOTINE 21 MG PATC TD SCH (08:31)
[2016-10-18] MEDS: MULTIVITAMINS 1 CAP CAPSULE PO SCH (08:31)
[2016-10-18] MEDS: POTASSIUM CHLORIDE/NS 1,000 ML IV SCH (20:55)
[2016-10-18] MEDS ORDERED: BENZOCAINE/MENTHOL 81 SPRAY CAN TP PRN (21:09)
[2016-10-18] MEDS ORDERED: GLYCERIN/WITCH HAZEL LEAF 40 APPL BOX TP PRN (21:09)
[2016-10-19] MEDS: POTASSIUM PHOS M BASIC D BASIC IV SCH (00:27)
[2016-10-19] MEDS: NORMAL SALINE IV SCH (00:27)
[2016-10-19] MEDS: DEXTROSE IV SCH (00:27)
[2016-10-19] MEDS: LEVOFLOXACIN/D5W 500 MG/100 ML BAG IV SCH (00:43)
[2016-10-19 06:21] LABS: Hematocrit 24.2 % (37.0-47.0); Hemoglobin 8.1 gm/dL (12.5-16.0); Mean Cell Volume 93.8 fl (78-100); Mean Corpuscular Hemoglobin 31.4 pg (27-31); Mean Corpuscular Hgb Conc 33.5 g/dl (32-36); Mean Platelet Volume 9.6 fl (6.0-9.5); Neutrophil # 2.3 K/mm3 (1.3-6.0); Neutrophil % 55.6 % (42-75.0); Platelet Count 174 K/mm3 (150-450); Red Blood Count 2.58 M/mm3 (4.2-5.4); Red Cell Distribution Width 20.2 % (11.5-14.0); White Blood Count 4.1 K/mm3 (4.0-10.5)
[2016-10-19 06:36] LABS: ALT 95 U/L (19-67); AST 285 U/L (0-48); Albumin * 1.6 gm/dl (3.4-5.0); Alkaline Phosphatase * 308 U/L (50-170); Anion Gap 15.8 mmol/L (6.8-13.8); Bilirubin, Total 1.6 mg/dL (0.0-1.1); Ca. Corrected For Albumin 8.3 mg/dL (8.4-10.2); Calcium * 6.7 mg/dL (7.9-10.9); Carbon Dioxide 25.3 mmol/L (24-32.6); Chloride 106 mmol/L (97-106); Glucose * 104 mg/dL (70-110); Potassium 3.1 mmol/L (3.4-4.6); Sodium 144 mmol/L (132-142); Total Protein 4.5 gm/dL (6.2-8.2)
[2016-10-19 06:38] LABS: BUN/Creatinine Ratio 7.9 (9.0-21.6)
[2016-10-19] MEDS: PANTOPRAZOLE SODIUM 40 MG TABLET.EC PO SCH (07:03)
[2016-10-19] MEDS: chlordiazePOXIDE HCL 25 MG CAPSULE PO SCH (09:49)
[2016-10-19] MEDS: FOLIC ACID 1 MG TABLET PO SCH (09:49)
[2016-10-19] MEDS: PRENATAL VITS96/IRON FUM/FOLIC 1 TAB TABLET PO SCH (09:50)
[2016-10-19] MEDS: NICOTINE 21 MG PATC TD SCH (09:50)
[2016-10-19] MEDS: MAGNESIUM OXIDE 400 MG TABLET PO SCH ×3 (09:50→16:19)
[2016-10-19] MEDS: MULTIVITAMINS 1 CAP CAPSULE PO SCH (09:50)
[2016-10-19] MEDS: THIAMINE HCL 100 MG TABLET PO SCH (09:51)
[2016-10-19] MEDS ORDERED: SULFAMETHOXAZOLE/TRIMETHOPRIM 1 TAB TABLET PO SCH (10:30)
--- NOTE | 2016-10-19 11:27 | DS ---
(1) Alkalosis, metabolic Problem: Acute (2) UTI (urinary tract infection) Problem: Acute Qualifiers: Urinary tract infection type: acute cystitis Hematuria presence: without hematuria Qualified Code(s): N30.00 - Acute cystitis without hematuria (3) Alcohol abuse Problem: Acute (4) Anemia Problem: Acute (5) COPD (chronic obstructive pulmonary disease) Problem: Chronic (6) Discharge planning issues Problem: Acute Description of Stay: pt. admitted for metabolic acidosis, UTI, EtOH intoxication and abuse. Acidosis was most likely due to her EtOH abuse and she was counselled on this. She also developed an anemia, with guaiac positive stools, but Hb was 8.1 and stable at time of d/c. She was advised that this most likely was related to her drinking and she should therefore never drink. We started her on librium and will continue this outpt. to help wean her off EtOH. she as hypokalemic to 3.1 at time of discharge, but this should easily correct outpt. with just normal diet. Procedures Performed: none Discharge Disposition: Home self care Disposition: Home self-care Condition: Fair Discharge Diet: General/regular food Referrals: Jorge Luis Vigil MD [Staff Physician] - One Week Prescriptions (Any new or edited meds): chlordiazePOXIDE HCL [Librium] 50 mg PO BID #6 capsule Sulfamethoxazole/Trimethoprim [Bactrim Ds] 1 tab PO BID #10 tablet Complete Home Medications List: Complete Home Medication List: Folic Acid 1 mg PO DAILY #30 tablet 09/26/16 Pantoprazole Sodium [Protonix] 40 mg PO DAILY@0700 #30 tablet. 09/26/16 Sucralfate [Carafate] 1 gm PO QID 10/17/16 Folic Acid 1 mg PO DAILY tablet 10/19/16 Multivitamins [Multivitamin Gerri] 1 cap PO DAILY capsule 10/19/16 Vits96/Iron Fum/Folic [ S] 1 tab PO BID tablet 10/19/16 Sulfamethoxazole/Trimethoprim [Bactrim Ds] 1 tab PO BID #10 tablet 10/19/16 Thiamine HCl [Vitamin B-1] 100 mg PO DAILY tablet 10/19/16 chlordiazePOXIDE HCL [Librium] 50 mg PO BID #6 capsule 10/19/16 Amb Orders for Discharge: Basic Metabolic Panel Time Frame: 1 Week, Location: Determined By Patient CBC Time Frame: 1 Week, Location: Determined By Patient
[2016-10-19 14:56] VITALS: BP 122/84
[2016-10-20] MEDS ORDERED: LEVOFLOXACIN/D5W 500 MG/100 ML BAG IV SCH (01:15)
== END 2016-10-19 18:04 | disposition home or self-care (01) | DRG 690 ==
LOC: ER 21:22 → MS 10-17 01:12
PROVIDERS: ADMIT Nurse Practitioner; ATTEND Allergy & Immunology
PROC: 4A033R1 Measurement of Arterial Saturation, Peripheral, Percutaneous Approach (ICD-10-PCS; principal; 2016-10-17)
DX: N30.00 Acute cystitis without hematuria (principal); E87.2 Acidosis; E87.6 Hypokalemia; F10.229 Alcohol dependence with intoxication, unspecified; Y90.8 Blood alcohol level of 240 mg/100 ml or more; D64.9 Anemia, unspecified; J44.9 Chronic obstructive pulmonary disease, unspecified; F17.210 Nicotine dependence, cigarettes, uncomplicated
CPT/HCPCS: 36415; 51701; 71010; 80051; 80053; 81001; 82140; 82272; 82800; 83605; 83735; 84100; 84484; 85025; 87077; 87086; 87186; 93005; 94640; 94760; 96365; 96366; 99285; G0481; J2405

== ENCOUNTER 2016-11-24 17:59 | Inpatient (IN) | payer MEDICAID ==
[2016-11-24] MEDS ORDERED: NORMAL SALINE 1,000 ML IV ONE (18:08)
--- NOTE | 2016-11-24 18:23 | ERNOTE ---
Medical Problem HPI - Narrative Date of Service: 11/24/16 - General Chief Complaint: General Assessment Time Seen by Provider: 11/24/16 18:05 Source: patient, family, EMS notes reviewed Exam Limitations: clinical condition, dementia - Immun/Allergies/Home Medications Immunizations: IMMUNIZATION HX Immunizations Up to Date unknown at this time History of Influenza Vaccine More Information Required Hx Pneumococcal Vaccination More Information Required Allergies/Adverse Reactions: Allergies tramadol Allergy (Severe, Verified 11/24/16 18:10) Other naproxen sodium [From Aleve] Allergy (Intermediate, Verified 11/24/16 18:10) Hives Penicillins Allergy (Intermediate, Verified 11/24/16 18:10) Hives Home Medications: HOME MEDICATIONS Folic Acid 1 mg PO DAILY #30 tablet 09/26/16 [Last Taken Unknown] Pantoprazole Sodium [Protonix] 40 mg PO DAILY@0700 #30 tablet. 09/26/16 [Last Taken Unknown] Sucralfate [Carafate] 1 gm PO QID 10/17/16 [Last Taken Unknown] Multivitamins [Multivitamin Gerri] 1 cap PO DAILY capsule 10/19/16 [Last Taken Unknown] Vits96/Iron Fum/Folic [ S] 1 tab PO BID tablet 10/19/16 [Last Taken Unknown] Sulfamethoxazole/Trimethoprim [Bactrim Ds] 1 tab PO BID #10 tablet 10/19/16 [ Last Taken Unknown] Thiamine HCl [Vitamin B-1] 100 mg PO DAILY tablet 10/19/16 [Last Taken Unknown] chlordiazePOXIDE HCL [Librium] 50 mg PO BID #6 capsule 10/19/16 [Last Taken Unknown] Thiamine HCl [B-1] 100 mg PO DAILY 11/24/16 [Last Taken Unknown] - History of Present History Narrative: Pt. comes in by EMS with c/o AMS for the past week. Pt. has a hx of liver disease and ETOH abuse with metabolic acidosis. Her caregiver reported to EMS that pt. had been declining for the past week and has not been eating or drinking an will not allow the caregiver to change her depends. Review of Systems - Review of Systems Constitutional: Present: weakness, fatigue, malaise, weight loss, decreased activity level. Absent: fever, chills, diaphoresis, fussy EYE: Present: no symptoms reported. Absent: eye pain, eye discharge, blurred vision, double vision, vision changes, tearing ENT: Present: no symptoms reported. Absent: See HPI Respiratory: Present: cough. Absent: shortness of breath, orthopnea, wheezing Cardiology: Present: no symptoms reported. Absent: chest pain, palpitations, syncope, edema Gastrointestinal/Abdominal: Present: eating less, drinking less. Absent: nausea , vomiting, diarrhea, abdominal pain Genitourinary: Present: no symptoms reported. Absent: pain, dysuria, decreased urinary output Musculoskeletal: Present: no symptoms reported. Absent: back pain, muscle pain , joint pain, joint swelling Skin: Present: no symptoms reported. Absent: rash, dryness, lesions, lumps, change in color, change in hair/nails Neurological: Present: emotional problems, weakness, other - forgetful and disoriented. Absent: anxiety, depressed, headache, dizziness/light-headedness, numbness Endocrine: Present: no symptoms reported Hematologic/Lymphatic: Present: no symptoms reported Psych: Present: no symptoms reported All Other Systems: All systems neg except as marked - Patient's Past Medical History Patient History - Medical: Alcohol Abuse, Depression Patient History - Cardiac/Respiratory: COPD Patient History - Cancer: No Hx of Cancer Patient History - Surgical Procedures: Hysterectomy Patient History - Other: None - Family History Mother Family History - Medical: History Unknown Father Family History - Medical: History Unknown - Social History Living Situations: home Abuse History: Suspected abuse, Hx of Substance Use Psych History: Hx of Anxiety, Hx of Depression Smoking Status: Current every day smoker Have you smoked in the past 12 months: Yes Do you dip or chew tobacco: No Alcohol Use: heavy Drug Use: none - Immunizations Immunizations Up to Date: - unknown at this time Hx Pneumococcal Vaccination: More Information Required to Determine History of Influenza Vaccine: More Information Required to Determine Physical Exam - Physical Exam General Appearance: Present: wd/wn, alert, no apparent distress Head Exam: Present: normal inspection, no evidence of injury Eye Exam: Normal inspection: bilateral, PERRL: bilateral, EOMI: bilateral Ears, Nose, Throat: Present: normal ENT inspection, normal pharynx Neck: Present: normal inspection, nontender Respiratory: Present: no respiratory distress, no accessory muscle use, chest nontender, rhonchi - BUL Cardiovascular/Chest: Present: no murmur, normal peripheral pulses, tachycardia Gastrointestinal/Abdominal: Present: normal bowel sounds, tenderness - throughout, hepatomegaly. Absent: distended, guarding, rebound, mass, hernia Back Exam: Present: normal inspection Extremity Exam: Present: normal inspection Neurological Exam: Present: alert, normal mood/affect, motor weakness - generalized, disoriented to time, disoriented to place, disoriented to situation , other - unable to follow commands consistently. Absent: facial droop Skin Exam: Present: cool/dry, pallor, other - poor skin turgor Lymphatic Exam: Present: no adenopathy ED Progress - Date and Time Seen: Date and Time: 11/24/16 20:09 Discussed case with Paloma and we will admit for hypokalemia, anemia, AMS, ETOH Abuse - Results and Orders Patient's Lab Results:: I have reviewed the patient's lab results. - Vital Signs Patient's Vital Signs:: I have reviewed the patient's vital signs. Vital Signs: Vital Signs 11/24/16 18:00 Temperature 37.1 C Pulse Rate 122 H Respiratory 16 Rate Blood Pressure 82/58 O2 Sat by Pulse 94 Oximetry - EKG EKG: other - sinus tach EKG read: Reviewed by me EKG Comments: Interp by Dr Collins - X-Ray X-Ray #1 X-Ray: chest Interpretation: Reviewed by me X-ray Comments: acute L lateral 7th 8th, and 9th rib fx. - CT/Ultrasound CT/Ultrasound Narrative: CT head without acute changes but with chronic vascular changes - Progress/Reassessment Chief Complaint: General Assessment Progress:: Unchanged Departure Clinical Impression: Discharge planning issues, Metabolic encephalopathy, Hypokalemia, Altered awareness, transient Alcohol dependence Qualifiers: Substance use status: with intoxication Complication of substance-induced condition: with delirium Qualified Code(s): F10.221 - Alcohol dependence with intoxication delirium Anemia Qualifiers: Anemia type: unspecified type Qualified Code(s): D64.9 - Anemia, unspecified - Departure Disposition: [facility] Condition: Serious
[2016-11-24 18:31] LABS: Hemoglobin 8.3 gm/dL (12.5-16.0); Mean Cell Volume 100.4 fl (78-100); Mean Corpuscular Hemoglobin 35.5 pg (27-31); Mean Corpuscular Hgb Conc 35.3 g/dl (32-36); Neutrophil # 4.7 K/mm3 (1.3-6.0); Neutrophil % 70.1 % (42-75.0); Platelet Count 388 K/mm3 (150-450); Red Blood Count 2.34 M/mm3 (4.2-5.4); Red Cell Distribution Width 12.7 % (11.5-14.0); White Blood Count 6.7 K/mm3 (4.0-10.5)
[2016-11-24 18:43] LABS: Hematocrit 23.5 % (37.0-47.0)
[2016-11-24 18:55] LABS: Prothrombin Time (Patient) 13.9 Seconds (9.4-11.4)
[2016-11-24 18:57] LABS: Albumin * 2.1 gm/dl (3.4-5.0); Anion Gap 18.9 mmol/L (6.8-13.8); BUN/Creatinine Ratio 14.6 (9.0-21.6); Bilirubin, Total 3.2 mg/dL (0.0-1.1); Calcium * 7.8 mg/dL (7.9-10.9); Carbon Dioxide 27.2 mmol/L (24-32.6); Total Protein 5.7 gm/dL (6.2-8.2)
[2016-11-24 19:02] LABS: INR 1.34 INR (0.90-1.10); Partial Thrombolplastin Time 29.4 Seconds (24-32)
[2016-11-24 19:05] LABS: Potassium 2.1 mmol/L (3.4-4.6)
[2016-11-24] MEDS: MULTIVIT INFUSN,ADULT 4,VIT K 10 ML, THIAMINE HCL 100 MG in DEXTROSE 5 % IN WATER 1,000 ML IV SCH ×3 (19:25)
[2016-11-24] MEDS: POTASSIUM CHLORIDE 100 ML IV SCH ×2 (19:32→20:56)
[2016-11-24 20:12] LABS: Urine Bilirubin 3 mg/dl (NEGATIVE); Urine Blood Negative /ul (NEGATIVE); Urine Ketone 15 mg/dL (NEGATIVE); Urine Nitrite Negative (NEGATIVE); Urine Protein Negative (NEGATIVE); Urine Specific Gravity <=1.005 SP.GR. (1.005-1.010); Urine Urobilinogen 4 EU/dl (NORMAL); Urine pH 6.5 pH (5.0-7.0)
[2016-11-24 20:23] LABS: Urine Appearance Clear; Urine Bacteria 2+; Urine Color Yellow; Urine RBC None Seen /hpf (0-5); Urine WBC 0-5 /hpf (0-5)
[2016-11-24 20:24] LABS: Urine Amorphous Sediment TRACE (NONE-FEW); Urine Hyaline Cast TRACE /LPF
[2016-11-24] MEDS ORDERED: THIAMINE HCL 100 MG TABLET PO SCH (23:45)
[2016-11-24] MEDS ORDERED: FOLIC ACID 0.4 MG TABLET PO SCH (23:45)
--- NOTE | 2016-11-24 23:48 | HP ---
Chief Complaint - Chief Complaint Date of Service: 11/24/16 Time of Service: 23:18 Chief Complaint: ETOH and AMS History of Present Illness: Pt is a 55 year old female who comes in by EMS with c/o AMS for the past week. Pt has known of liver disease and ETOH abuse with metabolic acidosis. Her caregiver reported to EMS that pt. had been declining for the past week and has not been eating or drinking an will not allow the caregiver to change her depends. Pt is poor historian with AMS, so most information is obtained from EMR and previous charts, she was just recently admitted one and two months ago with similar symptoms. PMH includes: bipolar disorder, COPD, CVA, anemia, PTSD, and SZ, Of note she was c/o L chest wall pain, per roommate she fell a few days ago-chest xray revealed left rib 7-[address] was without any acute abnormalities. Due to her AMS and inability to care for self, she is not appropriate to be discharged home. She will be admitted overnight for serial labs, MIVF, close monitoring, and telemetry. Other laboratory findings were as followed: Laboratory Tests 11/24/16 18:25 WBC 6.7 Hgb 8.3 L Hct 23.5 L* Plt Count 388 PT INR (Anticoag Therapy) PTT ([facility]morton) pCO2 pO2 HCO3 Total CO2 Base Excess ABG pH ABG O2 Sat (Measured) Sodium 130 L Potassium 2.1 L* D Chloride 86 L Carbon Dioxide 27.2 Anion Gap 18.9 H BUN 6 D Creatinine 0.41 Est GFR (Non-Af Amer) 172 H Random Glucose 76 Lactic Acid, Venous 1.6 AST 268 H ALT 42 Alkaline Phosphatase 419 H Urine Bilirubin Urine Ictotest Urine Urobilinogen Ur Epithelial Cells Urine Bacteria Ethyl Alcohol 321.0 H 11/24/16 11/24/16 19:30 20:00 WBC Hgb Hct Plt Count PT 13.9 H INR (Anticoag Therapy) 1.34 H PTT ([place]rockmorton) 29.4 pCO2 31.4 L pO2 58.8 L HCO3 21.4 Total CO2 22.4 Base Excess -2.1 L ABG pH 7.45 ABG O2 Sat (Measured) 92.0 L Sodium Potassium Chloride Carbon Dioxide Anion Gap BUN Creatinine Est GFR (Non-Af Amer) Random Glucose Lactic Acid, Venous AST ALT Alkaline Phosphatase Urine Bilirubin 3 H Urine Ictotest Positive H Urine Urobilinogen 4 H Ur Epithelial Cells >25 H Urine Bacteria 2+ H Ethyl Alcohol - Patient's Past Medical History Patient History - Medical: Alcohol Abuse, Bipolar, Depression, Other - ETOH abuse Patient History - Cardiac/Respiratory: COPD, CVA/Stroke Patient History - Cancer: No Hx of Cancer Patient History - Surgical Procedures: Hysterectomy Patient History - Other: None LMP (females 10-50): Menopausal - Family History Mother Family History - Medical: History Unknown Father Family History - Medical: History Unknown - Social History Living Situations: home Abuse History: Suspected abuse, Hx of Substance Use Psych History: Hx of Anxiety, Hx of Depression, Hx of Bipolar Disorder Does anyone smoke in the home?: Yes Smoking Status: Current every day smoker Have you smoked in the past 12 months: Yes Do you dip or chew tobacco: No Patient requests Smoking Cessation Consult: No Initiate information on Smoking Cessation: No Alcohol Use: heavy Drug Use: none - Immunizations Immunizations Up to Date: - unknown at this time Hx Pneumococcal Vaccination: More Information Required to Determine History of Influenza Vaccine: More Information Required to Determine Review Of Systems (GEN) - Review of Systems Generalized/Overall Review: Present: No Symptoms Reported EENTM: Present: No Symptoms Reported Respiratory: Present: No Symptoms Reported Cardiac: Present: No Symptoms Reported Abdominal: Present: No Symptoms Reported Genitourinary: Present: No Symptoms Reported Musculoskeletal: Present: No Symptoms Reported Neurological: Present: No Symptoms Reported Skin: Present: No Symptoms Reported Endocrine: Present: No Symptoms Reported Allergies/Adverse Reactions: Allergies Allergy/AdvReac Type Severity Reaction Status Date / Time tramadol Allergy Severe Other Verified 11/24/16 18:10 naproxen sodium [From Aleve] Allergy Intermediate Hives Verified 11/24/16 18:10 Penicillins Allergy Intermediate Hives Verified 11/24/16 18:10 Home Medications: HOME MEDICATIONS Folic Acid 1 mg PO DAILY #30 tablet 09/26/16 [Last Taken Unknown] Pantoprazole Sodium [Protonix] 40 mg PO DAILY@0700 #30 tablet. 09/26/16 [Last Taken Unknown] Sucralfate [Carafate] 1 gm PO QID 10/17/16 [Last Taken Unknown] Multivitamins [Multivitamin Gerri] 1 cap PO DAILY capsule 10/19/16 [Last Taken Unknown] Vits96/Iron Fum/Folic [ S] 1 tab PO BID tablet 10/19/16 [Last Taken Unknown] Sulfamethoxazole/Trimethoprim [Bactrim Ds] 1 tab PO BID #10 tablet 10/19/16 [ Last Taken Unknown] Thiamine HCl [Vitamin B-1] 100 mg PO DAILY tablet 10/19/16 [Last Taken Unknown] chlordiazePOXIDE HCL [Librium] 50 mg PO BID #6 capsule 10/19/16 [Last Taken Unknown] Thiamine HCl [B-1] 100 mg PO DAILY 11/24/16 [Last Taken Unknown] Exam - Exam Vital Signs: Vital Signs - Last Taken Temp 36.2 C L 11/24/16 21:20 Pulse 110 H 11/24/16 21:20 Resp 20 11/24/16 21:20 BP 90/60 11/24/16 21:20 Pulse Ox 98 RA 11/24/16 21:20 Constitutional: Present: Alert, Thin and frail, Looks Older than stated age ENT Exam: Present: hearing grossly normal Eye Exam: bilateral eye: normal inspection, PERRL Back Exam: Present: normal inspection Respiratory: Present: no respiratory distress, no accessory muscle use, decreased breath sounds, crackles Cardiovascular/Chest: Present: normal peripheral pulses, regular rate, rhythm, no chest tenderness, no edema, no gallop, no JVD, no murmur Peripheral Pulses: dorsalis-pedis (R): 2+, dorsalis-pedis (L): 2+, radial (R): 2 +, radial (L): 2+ Abdomen: Present: Normal bowel sounds, soft, nontender, nondistended, no rebound tenderness, no hepatospenomegaly, no masses Extremity: Present: normal range of motion, non-tender, normal inspection, no pedal edema, no calf tenderness Skin Exam: Present: warm/dry, no cyanosis, jaundice Lymphatic: Present: no adenopathy Neurologic: Present: alert Appearance: Present: disheveled, impaired insight Eye contact: Present: belligerent, uncooperative Diagnostic Studies: Laboratory Results WBC 6.7 K/mm3 (4.0-10.5) 11/24/16 18:25 RBC 2.34 M/mm3 (4.2-5.4) L 11/24/16 18:25 Hgb 8.3 gm/dL (12.5-16.0) L 11/24/16 18:25 Hct 23.5 % (37.0-47.0) L* 11/24/16 18:25 MCV 100.4 fl (78-100) H 11/24/16 18:25 MCH 35.5 pg (27-31) H 11/24/16 18:25 MCHC 35.3 g/dl (32-36) 11/24/16 18:25 RDW 12.7 % (11.5-14.0) 11/24/16 18:25 Plt Count 388 K/mm3 (150-450) 11/24/16 18:25 MPV 10.0 fl (6.0-9.5) H 11/24/16 18:25 Immature Gran % (Auto) 0.40 % (0.001-0.429) 11/24/16 18:25 Immature Gran # (Auto) 0.03 K/mm3 (0.000-0.0310) 11/24/16 18:25 Neutrophils % 70.1 % (42-75.0) 11/24/16 18:25 Lymphocytes % 16.8 % (20-51) L 11/24/16 18:25 Monocytes % 12.0 % (0.0-9) H 11/24/16 18:25 Eosinophils % 0.1 % (0.0-3.0) 11/24/16 18:25 Basophils % 0.6 % (0.0-1.0) 11/24/16 18:25 Nucleated RBC % 0.0 k/mm3 (0-1) 11/24/16 18:25 Neutrophils # 4.7 K/mm3 (1.3-6.0) 11/24/16 18:25 Lymphocytes # 1.1 k/mm3 (1.5-3.5) L 11/24/16 18:25 Monocytes # 0.8 k/mm3 (0.0-1.0) 11/24/16 18:25 Eosinophils # 0.0 k/mm3 (0.0-0.7) 11/24/16 18:25 Absolute Basophils 0.0 k/mm3 (0.0-0.1) 11/24/16 18:25 PT 13.9 Seconds (9.4-11.4) H 11/24/16 18:43 INR (Anticoag Therapy) 1.34 INR (0.90-1.10) H 11/24/16 18:43 PTT ([place]morton) 29.4 Seconds (24-32) 11/24/16 18:43 pCO2 31.4 mmHg (32.0-45.0) L 11/24/16 19:30 pO2 58.8 mmHg (83.0-108.0) L 11/24/16 19:30 HCO3 21.4 mmol/L (21.0-28.0) 11/24/16 19:30 Total CO2 22.4 mmol/L (19.0-24.0) 11/24/16 19:30 Base Excess -2.1 mmol/L (-2.0-3.0) L 11/24/16 19:30 ABG pH 7.45 (7.35-7.45) 11/24/16 19:30 ABG O2 Sat (Measured) 92.0 % (94.0-98.0) L 11/24/16 19:30 Sodium 130 mmol/L (132-142) L 11/24/16 18:25 Plasma Sodium 130 mmol/L (130-142) 11/24/16 18:25 Potassium 2.1 mmol/L (3.4-4.6) L* D 11/24/16 18:25 Chloride 86 mmol/L (97-106) L 11/24/16 18:25 Carbon Dioxide 27.2 mmol/L (24-32.6) 11/24/16 18:25 Anion Gap 18.9 mmol/L (6.8-13.8) H 11/24/16 18:25 BUN 6 mg/dL (3-23) D 11/24/16 18:25 Creatinine 0.41 mg/dL (0.4-1.4) 11/24/16 18:25 Est GFR (Non-Af Amer) 172 mL/min (60-130) H 11/24/16 18:25 BUN/Creatinine Ratio 14.6 (9.0-21.6) 11/24/16 18:25 Random Glucose 76 mg/dL (70-110) 11/24/16 18:25 Lactic Acid, Venous 1.6 mmol/L (0.4-1.9) 11/24/16 18:25 Calcium 7.8 mg/dL (7.9-10.9) L 11/24/16 18:25 Calcium Adj for Albumin 9.0 mg/dL (8.4-10.2) 11/24/16 18:25 Total Bilirubin 3.2 mg/dL (0.0-1.1) H 11/24/16 18:25 AST 268 U/L (0-48) H 11/24/16 18:25 ALT 42 U/L (19-67) 11/24/16 18:25 Alkaline Phosphatase 419 U/L (50-170) H 11/24/16 18:25 Ammonia 25.0 mcmol/L (11-35) 11/24/16 18:25 Total Protein 5.7 gm/dL (6.2-8.2) L 11/24/16 18:25 Albumin 2.1 gm/dl (3.4-5.0) L 11/24/16 18:25 Urine Color Yellow 11/24/16 20:00 Urine Appearance Clear 11/24/16 20:00 Urine pH 6.5 pH (5.0-7.0) 11/24/16 20:00 Ur Specific [place] <=1.005 SP.GR. (1.005-1.010) 11/24/16 20:00 Urine Protein Negative mg/dL (NEGATIVE) 11/24/16 20:00 Urine Glucose (UA) Negative mg/dL (NEGATIVE) 11/24/16 20:00 Urine Ketones 15 mg/dL (NEGATIVE) 11/24/16 20:00 Urine Blood Negative /ul (NEGATIVE) 11/24/16 20:00 Urine Nitrate Negative (NEGATIVE) 11/24/16 20:00 Urine Bilirubin 3 mg/dl (NEGATIVE) H 11/24/16 20:00 Urine Ictotest Positive (NEGATIVE) H 11/24/16 20:00 Urine Urobilinogen 4 EU/dl (NORMAL) H 11/24/16 20:00 Ur Leukocyte Esterase Negative /ul (NEGATIVE) 11/24/16 20:00 Urine RBC None seen /hpf (0-5) 11/24/16 20:00 Urine WBC 0-5 /hpf (0-5) 11/24/16 20:00 Ur Epithelial Cells >25 /hpf (0-5) H 11/24/16 20:00 Amorphous Sediment Trace (NONE-FEW) 11/24/16 20:00 Urine Bacteria 2+ (NONE) H 11/24/16 20:00 Hyaline Casts Trace /LPF (NONE) 11/24/16 20:00 Urine Culture Comments Culture to follow 11/24/16 20:00 Ethyl Alcohol 321.0 mg/dL (0.0-10.0) H 11/24/16 18:25 Assessment/Plan - Assessment/Plan (1) Altered mental state Assessment: Pt is belligerent and uncooperative, resisting medical care. ETOH on admission at 321, Ammonia 25, CTH negative for any acute processes. Will order CIWA protocol and monitor for any further neurological deterioration in SCU. -CIWA protocol -Admit to SCU Problem: Acute Qualifiers: Altered mental status type: disorientation Qualified Code(s): R41.0 - Disorientation, unspecified (2) Anemia Assessment: Most likely due to chronic ETOH abuse. Will start on iron supplements. Last admission with +occult stool, will monitor for s/s of acute bleed. -Daily CBC and CMP -Iron supplements Problem: Chronic Qualifiers: Anemia type: unspecified type Qualified Code(s): D64.9 - Anemia, unspecified (3) Hypokalemia Assessment: Due to ETOH abuse and poor nutrition. IV replacement ordered, no ectopic beats noted on telemetry. Pt is noncompliant with lab draws, will attempt to recheck once repleted -IV potassium replacement -Telemetry Problem: Acute (4) Alcohol abuse Assessment: Chronic in nature with multiple previous admission. Last admission was discharged on Librium and educated on the importance of stopping drinking. Pt has histories of DT's, will place on [facility] protocol. -Banana bag Q24H -Thiamine -Folic acid -Iron supplement -CIWA protocol Problem: Chronic (5) COPD (chronic obstructive pulmonary disease) Assessment: Stable Problem: Chronic (6) Elevated AST (SGOT) Problem: Chronic (7) Elevated alkaline phosphatase level Problem: Chronic (8) Bilirubinemia Problem: Acute
[2016-11-25] MEDS: chlordiazePOXIDE HCL 25 MG CAPSULE PO SCH ×2 (00:21→08:01)
[2016-11-25] MEDS: FERROUS SULFATE 325 MG TABLET PO SCH ×3 (00:21→17:42)
[2016-11-25] MEDS: POTASSIUM CHLORIDE 100 ML IV SCH ×6 (02:53→13:15)
[2016-11-25 06:03] LABS: Mean Corpuscular Hemoglobin 35.2 pg (27-31); Mean Corpuscular Hgb Conc 34.8 g/dl (32-36); Mean Platelet Volume 10.2 fl (6.0-9.5); Neutrophil # 4.6 K/mm3 (1.3-6.0); Neutrophil % 67.6 % (42-75.0); Platelet Count 337 K/mm3 (150-450); Red Blood Count 1.99 M/mm3 (4.2-5.4); Red Cell Distribution Width 12.6 % (11.5-14.0); White Blood Count 6.8 K/mm3 (4.0-10.5)
[2016-11-25 06:09] LABS: Hematocrit 20.1 % (37.0-47.0)
[2016-11-25] MEDS: NORMAL SALINE 1,000 ML IV PRN ×2 (06:12→22:21)
[2016-11-25 06:16] LABS: Prothrombin Time (Patient) 12.8 Seconds (9.4-11.4)
[2016-11-25 06:26] LABS: Anion Gap 16.6 mmol/L (6.8-13.8); BUN/Creatinine Ratio 10.3 (9.0-21.6); Bilirubin, Total 3.3 mg/dL (0.0-1.1); Ca. Corrected For Albumin 8.9 mg/dL (8.4-10.2); Calcium * 7.6 mg/dL (7.9-10.9); Carbon Dioxide 25.6 mmol/L (24-32.6); Potassium 3.2 mmol/L (3.4-4.6); Total Protein 5.6 gm/dL (6.2-8.2)
[2016-11-25 06:27] LABS: INR 1.23 INR (0.90-1.10); Partial Thrombolplastin Time 29.1 Seconds (24-32)
[2016-11-25 07:45] LABS: Cocaine Ur Negative (NEGATIVE); Urine Barbiturate Negative (NEGATIVE); Urine Benzodiazepines Negative (NEGATIVE); Urine Opiates Negative (NEGATIVE); Urine PCP Negative (NEGATIVE); Urine THC Negative (NEGATIVE)
[2016-11-25] MEDS: MULTIVIT INFUSN,ADULT 4,VIT K 10 ML, THIAMINE HCL 100 MG in DEXTROSE 5 % IN WATER 1,000 ML IV SCH ×6 (07:48→16:05)
[2016-11-25] MEDS: PANTOPRAZOLE SODIUM 40 MG TABLET.EC PO SCH (07:48)
[2016-11-25] MEDS: MULTIVITAMINS 1 CAP CAPSULE PO SCH (08:01)
[2016-11-25] MEDS: THIAMINE HCL 100 MG TABLET PO SCH (08:01)
[2016-11-25] MEDS ORDERED: FOLIC ACID 1 MG TABLET PO SCH (09:00)
[2016-11-25] MEDS ORDERED: PRENATAL VITS96/IRON FUM/FOLIC 1 TAB TABLET PO SCH (09:00)
[2016-11-25] MEDS: POTASSIUM CHLORIDE 20 MEQ TABLET.SA PO ONE ×2 (13:14→17:44)
[2016-11-25] MEDS ORDERED: LORazepam 2 MG/ML DISP.SYRIN IV SCH (17:45)
--- NOTE | 2016-11-25 18:58 | PN ---
Subjective - Date and Time Seen Date: 11/25/16 Time: 18:54 Subjective Narrative: Patient sitting up in chair, verbally abusive, not answering questions appropriately, in no acute distress. CIWA score at approximately 5 PM is 8-10 Objective - Review of Systems Respiratory: Denies: Cough, Shortness of Breath, Orthopnea Cardiac: Denies: Chest Pain, Edema, Palpitations - Vitals Vitals: Vital Signs Temp 37.2 C 11/25/16 16:00 Pulse 121 H 11/25/16 16:00 Resp 20 11/25/16 16:00 BP 93/65 11/25/16 16:00 Pulse Ox 97 11/25/16 16:00 - Abnormal Lab Findings Abnormal Lab Findings: Laboratory Tests 11/24/16 11/25/16 18:25 05:30 WBC 6.7 6.8 Hgb 8.3 L 7.0 L* Hct 23.5 L* 20.1 L* MCV 100.4 H 101.0 H Plt Count 388 337 11/24/16 11/25/16 18:43 05:30 PT 13.9 H 12.8 H INR (Anticoag Therapy) 1.34 H 1.23 H 11/24/16 11/25/16 18:25 05:30 Plasma Sodium 130 126 L Potassium 2.1 L* D 3.2 L D Chloride 86 L 87 L Carbon Dioxide 27.2 25.6 BUN 6 D 4 Creatinine 0.41 0.39 L Est GFR (Non-Af Amer) 172 H 182 H Calcium Adj for Albumin 9.0 8.9 Total Bilirubin 3.2 H 3.3 H AST 268 H 254 H ALT 42 38 Alkaline Phosphatase 419 H 396 H Ammonia 25.0 Total Protein 5.7 L 5.6 L Albumin 2.1 L 2.0 L - Exam Constitutional: Present: Thin and frail, Looks Older than stated age - alert, in NAD, JAUNDICED. Neck: Present: supple, trachea midline Respiratory: Present: decreased breath sounds - at bases Cardiovascular/Chest: Present: tachycardia - with HR 125-130/min Abdomen: Present: Normal bowel sounds, soft Skin Exam: Present: warm/dry, jaundice, pallor Appearance: Present: disheveled Eye contact: Present: uncooperative - and using abusive language Cauti Physician Documentation - Urinary Catheter Management Urethral (Ross) Date of Insertion: 11/24/16 Time of Insertion: 20:00 Date of Removal: 11/25/16 Time of Removal: 07:30 Assessment/Plan Plan Narrative: 1. EtOH abuse: EtOH level 321. On MVT, thiamine, and folic acid. Has a caregiver 'VICENTA' who provides EtOH to her. Considering fpc placement. 2. Abnormal LFTs: Patient may have cirrhosis. 3. Weight loss: BMI 15.7. 4. Anemia: H/H : 7/20.1 on 11/25/16. Patient may have varices. Recheck H/H in morning. 5. Electrolyte abnormalities: Recheck labs in the morning. .
[2016-11-25] MEDS: PRENATAL VITS96/IRON FUM/FOLIC 1 TAB TABLET PO SCH (21:14)
[2016-11-25] MEDS: LORazepam 1 MG TABLET PO SCH (23:24)
[2016-11-26] MEDS: LORazepam 1 MG TABLET PO SCH ×3 (05:10→18:34)
[2016-11-26 06:08] LABS: BUN/Creatinine Ratio 8.7 (9.0-21.6); Bilirubin, Total 4.3 mg/dL (0.0-1.1); Ca. Corrected For Albumin 9.3 mg/dL (8.4-10.2); Magnesium 1.2 mg/dL (1.2-2.8); Phosphorus 1.4 mg/dL (2.2-4.2); Total Protein 5.8 gm/dL (6.2-8.2)
[2016-11-26 06:14] LABS: Anion Gap 11.5 mmol/L (6.8-13.8); Carbon Dioxide 30.5 mmol/L (24-32.6)
[2016-11-26 06:18] LABS: Mean Cell Volume 106.4 fl (78-100); Mean Corpuscular Hemoglobin 35.6 pg (27-31); Mean Corpuscular Hgb Conc 33.5 g/dl (32-36); Mean Platelet Volume 10.6 fl (6.0-9.5); Neutrophil % 67.9 % (42-75.0); Platelet Count 319 K/mm3 (150-450); Red Blood Count 2.02 M/mm3 (4.2-5.4); Red Cell Distribution Width 12.7 % (11.5-14.0); White Blood Count 7.3 K/mm3 (4.0-10.5)
[2016-11-26 06:22] LABS: Hematocrit 21.5 % (37.0-47.0); Hemoglobin 7.2 gm/dL (12.5-16.0)
--- NOTE | 2016-11-26 07:18 | PN ---
Subjective - Date and Time Seen Date: 11/26/16 Time: 06:59 Subjective Narrative: Patient seen today in bed AOX3, no acute distress. pt denies pain, cough, fever , chills or bleeding.pt uses profanity and stated she don't want to be bothered. Objective - Review of Systems Generalized/Overall Review: Reports: No Symptoms Reported EENTM: Reports: No Symptoms Reported Respiratory: Reports: No Symptoms Reported Abdominal: Reports: No Symptoms Reported Genitourinary Symptoms: Reports: No Symptoms Reported Musculoskeletal Complaints: Reports: No Symptoms Reported Neurological: Reports: No Symptoms Reported Skin: Reports: No Symptoms Reported - Vitals Vitals: Last Vital Signs Temp 37.5 C 11/26/16 04:00 Pulse 121 H 11/26/16 04:00 Resp 26 H 11/26/16 04:00 BP 81/54 11/26/16 04:00 Pulse Ox 99 11/26/16 04:00 - Abnormal Lab Findings Abnormal Lab Findings: Abnormal Lab Results 11/26/16 11/26/16 Range/Units 05:46 05:46 RBC 2.02 L (4.2-5.4) M/mm3 Hgb 7.2 L* (12.5-16.0) gm/dL Hct 21.5 L* (37.0-47.0) % MCV 106.4 H (78-100) fl MCH 35.6 H (27-31) pg MPV 10.6 H (6.0-9.5) fl Immature Gran % (Auto) 1.00 H (0.001-0.429) % Immature Gran # (Auto) 0.07 H (0.000-0.0310) K/mm3 Lymphocytes % 19.9 L (20-51) % Monocytes % 10.2 H (0.0-9) % Potassium 3.0 L (3.4-4.6) mmol/L Chloride 95 L (97-106) mmol/L Est GFR (Non-Af Amer) 150 H (60-130) mL/min BUN/Creatinine Ratio 8.7 L (9.0-21.6) Phosphorus 1.4 L D (2.2-4.2) mg/dL Total Bilirubin 4.3 H (0.0-1.1) mg/dL AST 206 H (0-48) U/L Alkaline Phosphatase 424 H (50-170) U/L Total Protein 5.8 L (6.2-8.2) gm/dL Albumin 2.0 L (3.4-5.0) gm/dl - Exam Constitutional: Present: Alert, Oriented x3, No distress, Thin and frail, Looks Older than stated age ENT Exam: Present: hearing grossly normal Neck: Present: full range of motion Breasts: Present: Exam deferred Respiratory: Present: chest non-tender, no respiratory distress, decreased breath sounds, rhonchi Cardiovascular/Chest: Present: normal peripheral pulses, no chest tenderness, no edema, no gallop, no JVD, tachycardia Abdomen: Present: Normal bowel sounds, soft, nontender, nondistended /Rectal: Present: Exam deferred Extremity: Present: normal range of motion, non-tender, normal inspection, no pedal edema Skin Exam: Present: normal color, warm/dry, no cyanosis Neurologic: Present: oriented x 3 Appearance: Present: appropriate appearance, appropriate insight Eye contact: Present: cooperative, good eye contact Thoughts: Present: normal thought pattern, no apparent hallucination Cauti Physician Documentation - Urinary Catheter Management Urethral (Ross) Date of Insertion: 11/24/16 Time of Insertion: 20:00 Date of Removal: 11/25/16 Time of Removal: 07:30 Assessment/Plan Plan Narrative: Anemia: On adm H/H : 09/04.1 on 11/25/16. Repeated H/H 7.2/.5 concerns for patient may have varices. EtOH abuse: EtOH level 321. On MVT, thiamine, and folic acid. Has a caregiver 'PJ' who provides EtOH to her. Considering [facility] placement. Abnormal LFTs: Patient may have cirrhosis. Weight loss: BMI 15.7. Nutritional supplemented with meals Electrolyte abnormalities:- stable Time 25 minutes GI ppx:protonix VTE ppx: SCD and ambulate - Problems/Diagnosis (1) Metabolic encephalopathy Problem: Acute (2) Alcohol dependence Problem: Chronic Qualifiers: Substance use status: with intoxication Complication of substance-induced condition: with delirium Qualified Code(s): F10.221 - Alcohol dependence with intoxication delirium (3) Anemia Problem: Chronic Qualifiers: Anemia type: unspecified type Qualified Code(s): D64.9 - Anemia, unspecified
[2016-11-26] MEDS: PANTOPRAZOLE SODIUM 40 MG TABLET.EC PO SCH (07:35)
[2016-11-26] MEDS: MULTIVITAMINS 1 CAP CAPSULE PO SCH (09:14)
[2016-11-26] MEDS: FOLIC ACID 1 MG TABLET PO SCH (09:14)
[2016-11-26] MEDS: THIAMINE HCL 100 MG TABLET PO SCH (09:15)
[2016-11-26] MEDS: PRENATAL VITS96/IRON FUM/FOLIC 1 TAB TABLET PO SCH (09:15)
[2016-11-26] MEDS: NAPH,MB-DB/K PH,MBDB 1 PACKET PACKET PO SCH ×2 (09:16→20:51)
[2016-11-26] MEDS: NORMAL SALINE 1,000 ML IV PRN (15:25)
[2016-11-27] MEDS: LORazepam 1 MG TABLET PO SCH ×4 (00:32→17:12)
[2016-11-27 05:26] LABS: Albumin * 1.7 gm/dl (3.4-5.0); Anion Gap 11.2 mmol/L (6.8-13.8); BUN/Creatinine Ratio 6.5 (9.0-21.6); Bilirubin, Total 3.5 mg/dL (0.0-1.1); Ca. Corrected For Albumin 9.4 mg/dL (8.4-10.2); Calcium * 7.9 mg/dL (7.9-10.9); Carbon Dioxide 28.9 mmol/L (24-32.6); Phosphorus 1.6 mg/dL (2.2-4.2); Potassium 3.1 mmol/L (3.4-4.6)
[2016-11-27] MEDS: PANTOPRAZOLE SODIUM 40 MG TABLET.EC PO SCH (07:03)
[2016-11-27] MEDS: NORMAL SALINE 1,000 ML IV PRN (08:02)
[2016-11-27] MEDS: THIAMINE HCL 100 MG TABLET PO SCH (08:49)
[2016-11-27] MEDS: FOLIC ACID 1 MG TABLET PO SCH (08:49)
[2016-11-27] MEDS: PRENATAL VITS96/IRON FUM/FOLIC 1 TAB TABLET PO SCH (08:50)
[2016-11-27] MEDS: MULTIVITAMINS 1 CAP CAPSULE PO SCH (08:50)
[2016-11-27] MEDS: NAPH,MB-DB/K PH,MBDB 1 PACKET PACKET PO SCH ×2 (08:53→20:04)
--- NOTE | 2016-11-27 22:06 | PN ---
Subjective - Date and Time Seen Date: 11/27/16 Time: 20:04 Subjective Narrative: Patient was seen sitting up in chair, she denies discomfort and stated she was feeling much better and hope to be discharge tomorrow. Objective - Review of Systems Generalized/Overall Review: Reports: No Symptoms Reported EENTM: Reports: No Symptoms Reported Respiratory: Reports: Cough Cardiac: Reports: No Symptoms Reported Abdominal: Reports: No Symptoms Reported Genitourinary Symptoms: Reports: No Symptoms Reported Musculoskeletal Complaints: Reports: No Symptoms Reported Neurological: Reports: No Symptoms Reported Skin: Reports: No Symptoms Reported Endocrine: Reports: No Symptoms Reported - Vitals Vitals: Last Vital Signs Temp 36.9 C 11/27/16 18:00 Pulse 114 H 11/27/16 18:00 Resp 20 11/27/16 18:00 BP 84/61 11/27/16 18:00 Pulse Ox 95 11/27/16 18:00 - Abnormal Lab Findings Abnormal Lab Findings: Abnormal Lab Results 11/27/16 Range/Units 05:05 Potassium 3.1 L (3.4-4.6) mmol/L Chloride 96 L (97-106) mmol/L Est GFR (Non-Af Amer) 150 H (60-130) mL/min BUN/Creatinine Ratio 6.5 L (9.0-21.6) Phosphorus 1.6 L D (2.2-4.2) mg/dL Magnesium 1.0 L (1.2-2.8) mg/dL Total Bilirubin 3.5 H (0.0-1.1) mg/dL AST 151 H (0-48) U/L Alkaline Phosphatase 349 H (50-170) U/L Total Protein 5.0 L (6.2-8.2) gm/dL Albumin 1.7 L (3.4-5.0) gm/dl - Exam Constitutional: Present: Alert, Oriented x3, Cooperative, No distress ENT Exam: Present: normal ENT inspection Neck: Present: full range of motion Breasts: Present: Exam deferred Respiratory: Present: chest non-tender, decreased breath sounds, rhonchi Cardiovascular/Chest: Present: normal peripheral pulses, no chest tenderness, no edema, tachycardia Abdomen: Present: Normal bowel sounds, soft, nontender, nondistended /Rectal: Present: Exam deferred Extremity: Present: normal range of motion, non-tender, normal inspection, no pedal edema Skin Exam: Present: normal color, warm/dry Neurologic: Present: oriented x 3 Appearance: Present: appropriate appearance, appropriate insight Eye contact: Present: cooperative, good eye contact Thoughts: Present: normal thought pattern Cauti Physician Documentation - Urinary Catheter Management Urethral (Ross) Date of Insertion: 11/24/16 Time of Insertion: 20:00 Date of Removal: 11/25/16 Time of Removal: 07:30 Assessment/Plan Plan Narrative: Anemia:- stable On adm H/H : 09/04.1 on 11/25/16. Repeated H/H 7.2.5 concerns for patient may have varices. EtOH abuse: EtOH level 321. On MVT, thiamine, and folic acid. Has a caregiver 'PJ' who provides EtOH to her. Pt agreeable to usp placement. Abnormal LFTs: Patient may have cirrhosis. Weight loss: BMI 15.7. Nutritional supplemented with meals Electrolyte abnormalities:- stable Time 15 minutes GI ppx:protonix VTE ppx: SCD and ambulate Code status: Full - Problems/Diagnosis (1) Metabolic encephalopathy Problem: Acute (2) Alcohol dependence Problem: Chronic Qualifiers: Substance use status: with intoxication Complication of substance-induced condition: with delirium Qualified Code(s): F10.221 - Alcohol dependence with intoxication delirium (3) Anemia Problem: Chronic Qualifiers: Anemia type: unspecified type Qualified Code(s): D64.9 - Anemia, unspecified
[2016-11-28] MEDS: NORMAL SALINE 1,000 ML IV PRN ×2 (00:52→23:23)
[2016-11-28] MEDS: LORazepam 1 MG TABLET PO SCH ×4 (00:58→17:22)
[2016-11-28 05:30] LABS: Albumin * 1.5 gm/dl (3.4-5.0); Anion Gap 12.4 mmol/L (6.8-13.8); BUN/Creatinine Ratio 7.9 (9.0-21.6); Bilirubin, Total 2.9 mg/dL (0.0-1.1); Ca. Corrected For Albumin 9.4 mg/dL (8.4-10.2); Calcium * 7.7 mg/dL (7.9-10.9); Carbon Dioxide 26.7 mmol/L (24-32.6); Magnesium 0.9 mg/dL (1.2-2.8); Phosphorus 3.6 mg/dL (2.2-4.2); Potassium 3.1 mmol/L (3.4-4.6); Total Protein 4.7 gm/dL (6.2-8.2)
[2016-11-28] MEDS: PANTOPRAZOLE SODIUM 40 MG TABLET.EC PO SCH (07:07)
[2016-11-28] MEDS ORDERED: POTASSIUM CHLORIDE 20 MEQ TABLET.SA PO ONE (07:32)
--- NOTE | 2016-11-28 07:35 | PN ---
Subjective - Date and Time Seen Date: 11/28/16 Time: 07:33 Subjective Narrative: Patient seen today AOx3 no acute distress and stated she was feeling a little better. Objective - Review of Systems Generalized/Overall Review: Reports: No Symptoms Reported EENTM: Reports: No Symptoms Reported Respiratory: Reports: No Symptoms Reported Cardiac: Reports: No Symptoms Reported Abdominal: Reports: No Symptoms Reported Genitourinary Symptoms: Reports: No Symptoms Reported Musculoskeletal Complaints: Reports: No Symptoms Reported Neurological: Reports: No Symptoms Reported Skin: Reports: No Symptoms Reported Endocrine: Reports: No Symptoms Reported - Vitals Vitals: Last Vital Signs Temp 36.8 C 11/28/16 07:02 Pulse 112 H 11/28/16 07:02 Resp 18 11/28/16 07:02 BP 98/62 11/28/16 07:02 Pulse Ox 96 11/28/16 07:02 - Abnormal Lab Findings Abnormal Lab Findings: Abnormal Lab Results 11/28/16 Range/Units 05:05 Potassium 3.1 L (3.4-4.6) mmol/L Creatinine 0.38 L (0.4-1.4) mg/dL Est GFR (Non-Af Amer) 188 H D (60-130) mL/min BUN/Creatinine Ratio 7.9 L (9.0-21.6) Calcium 7.7 L (7.9-10.9) mg/dL Magnesium 0.9 L (1.2-2.8) mg/dL Total Bilirubin 2.9 H (0.0-1.1) mg/dL AST 107 H (0-48) U/L Alkaline Phosphatase 301 H (50-170) U/L Total Protein 4.7 L (6.2-8.2) gm/dL Albumin 1.5 L (3.4-5.0) gm/dl - Exam Constitutional: Present: Alert, Oriented x3, Cooperative ENT Exam: Present: hearing grossly normal Neck: Present: full range of motion Breasts: Present: Exam deferred Respiratory: Present: chest non-tender, lungs clear, normal breath sounds, no respiratory distress Cardiovascular/Chest: Present: normal peripheral pulses, regular rate, rhythm, no chest tenderness, no edema Abdomen: Present: Normal bowel sounds, soft, nontender, nondistended /Rectal: Present: Exam deferred Extremity: Present: normal range of motion, non-tender, normal inspection, no pedal edema Skin Exam: Present: warm/dry, no cyanosis, cool/dry Neurologic: Present: oriented x 3 Appearance: Present: appropriate appearance Eye contact: Present: cooperative, good eye contact Thoughts: Present: normal thought pattern, no apparent hallucination Cauti Physician Documentation - Urinary Catheter Management Urethral (Ross) Date of Insertion: 11/24/16 Time of Insertion: 20:00 Date of Removal: 11/25/16 Time of Removal: 07:30 Assessment/Plan Plan Narrative: Anemia:- stable On adm H/H : 11/25/16---->720.1 11/26/16 ---> H/H 7.2/21.5 concerns for patient may have varices. EtOH abuse: EtOH level 321. On MVT, thiamine, and folic acid. Has a caregiver 'VICENTA' who provides EtOH to her. Pt agreeable to assisted placement. Abnormal LFTs: Patient may have cirrhosis. Weight loss: BMI 15.7. Nutritional supplemented with meals Electrolyte abnormalities:- hypokalemia. supplemented Time 15 minutes GI ppx:protonix VTE ppx: SCD and ambulate Code status: Full - Problems/Diagnosis (1) Metabolic encephalopathy Problem: Acute (2) Alcohol dependence Problem: Chronic Qualifiers: Substance use status: with intoxication Complication of substance-induced condition: with delirium Qualified Code(s): F10.221 - Alcohol dependence with intoxication delirium (3) Anemia Problem: Chronic Qualifiers: Anemia type: unspecified type Qualified Code(s): D64.9 - Anemia, unspecified
[2016-11-28 07:50] LABS: Mean Cell Volume 107.6 fl (78-100); Mean Corpuscular Hemoglobin 35.7 pg (27-31); Mean Corpuscular Hgb Conc 33.2 g/dl (32-36); Platelet Count 256 K/mm3 (150-450); Red Blood Count 1.71 M/mm3 (4.2-5.4); Red Cell Distribution Width 13.4 % (11.5-14.0); White Blood Count 7.7 K/mm3 (4.0-10.5)
[2016-11-28 07:55] LABS: Hematocrit 18.4 % (37.0-47.0); Hemoglobin 6.1 gm/dL (12.5-16.0)
[2016-11-28] MEDS: FOLIC ACID 1 MG TABLET PO SCH (09:08)
[2016-11-28] MEDS: PRENATAL VITS96/IRON FUM/FOLIC 1 TAB TABLET PO SCH (09:08)
[2016-11-28] MEDS: MULTIVITAMINS 1 CAP CAPSULE PO SCH (09:08)
[2016-11-28] MEDS: THIAMINE HCL 100 MG TABLET PO SCH (09:08)
[2016-11-28] MEDS: NAPH,MB-DB/K PH,MBDB 1 PACKET PACKET PO SCH ×2 (09:09→20:24)
[2016-11-28 18:15] LABS: Hematocrit 32.8 % (37.0-47.0); Hemoglobin 11.1 gm/dL (12.5-16.0); Mean Cell Volume 95.6 fl (78-100); Mean Corpuscular Hemoglobin 32.4 pg (27-31); Mean Corpuscular Hgb Conc 33.8 g/dl (32-36); Mean Platelet Volume 10.1 fl (6.0-9.5); Neutrophil # 6.5 K/mm3 (1.3-6.0); Neutrophil % 70.7 % (42-75.0); Platelet Count 252 K/mm3 (150-450); Red Blood Count 3.43 M/mm3 (4.2-5.4); Red Cell Distribution Width 19.7 % (11.5-14.0); White Blood Count 9.2 K/mm3 (4.0-10.5)
[2016-11-28] MEDS: MIRTAZAPINE 15 MG TABLET PO SCH ×2 (20:24→20:29)
[2016-11-28] MEDS: NADOLOL 40 MG TABLET PO SCH (20:27)
[2016-11-29] MEDS: LORazepam 1 MG TABLET PO SCH ×2 (01:21→08:01)
[2016-11-29 05:20] LABS: Hematocrit 30.3 % (37.0-47.0); Hemoglobin 10.3 gm/dL (12.5-16.0); Mean Cell Volume 94.1 fl (78-100); Mean Platelet Volume 10.1 fl (6.0-9.5); Neutrophil # 5.2 K/mm3 (1.3-6.0); Neutrophil % 64.6 % (42-75.0); Platelet Count 220 K/mm3 (150-450); Red Blood Count 3.22 M/mm3 (4.2-5.4); Red Cell Distribution Width 21.2 % (11.5-14.0); White Blood Count 8.1 K/mm3 (4.0-10.5)
[2016-11-29 05:36] LABS: Albumin * 1.5 gm/dl (3.4-5.0); Anion Gap 13.2 mmol/L (6.8-13.8); Bilirubin, Total 3.8 mg/dL (0.0-1.1); Ca. Corrected For Albumin 9.2 mg/dL (8.4-10.2); Calcium * 7.5 mg/dL (7.9-10.9); Carbon Dioxide 25.9 mmol/L (24-32.6); Potassium 3.1 mmol/L (3.4-4.6); Total Protein 4.8 gm/dL (6.2-8.2)
[2016-11-29] MEDS: MULTIVITAMINS 1 CAP CAPSULE PO SCH (08:01)
[2016-11-29] MEDS: PRENATAL VITS96/IRON FUM/FOLIC 1 TAB TABLET PO SCH (08:01)
[2016-11-29] MEDS: THIAMINE HCL 100 MG TABLET PO SCH (08:01)
[2016-11-29] MEDS: PANTOPRAZOLE SODIUM 40 MG TABLET.EC PO SCH (08:01)
[2016-11-29] MEDS: FOLIC ACID 1 MG TABLET PO SCH (08:01)
[2016-11-29] MEDS: NAPH,MB-DB/K PH,MBDB 1 PACKET PACKET PO SCH ×2 (08:02→20:29)
[2016-11-29] MEDS: NORMAL SALINE 1,000 ML IV PRN (10:13)
[2016-11-29] MEDS ORDERED: POTASSIUM CHLORIDE 40 MEQ/15 ML BTL PO ONE (11:40)
[2016-11-29] MEDS: LORazepam 0.5 MG TABLET PO SCH (17:48)
[2016-11-29] MEDS: NADOLOL 40 MG TABLET PO SCH (19:50)
[2016-11-30] MEDS: LORazepam 0.5 MG TABLET PO SCH ×3 (01:35→20:16)
[2016-11-30] MEDS: PANTOPRAZOLE SODIUM 40 MG TABLET.EC PO SCH (07:53)
[2016-11-30] MEDS: NAPH,MB-DB/K PH,MBDB 1 PACKET PACKET PO SCH ×2 (09:09→20:16)
[2016-11-30] MEDS: PRENATAL VITS96/IRON FUM/FOLIC 1 TAB TABLET PO SCH (09:09)
[2016-11-30] MEDS: THIAMINE HCL 100 MG TABLET PO SCH (09:09)
[2016-11-30] MEDS: FOLIC ACID 1 MG TABLET PO SCH (09:09)
[2016-11-30] MEDS: MULTIVITAMINS 1 CAP CAPSULE PO SCH (09:09)
--- NOTE | 2016-11-30 11:14 | PN ---
Subjective - Date and Time Seen Date: 11/29/16 Time: 12:00 Subjective Narrative: Patient not very talkative, sleeping occasionally answers questions. Not motivated in walking. has good and bad days. Objective - Review of Systems Generalized/Overall Review: Reports: Weakness Respiratory: Reports: Cough Cardiac: Denies: Chest Pain, Edema Abdominal: Denies: Nausea, Vomiting - Vitals Vitals: vital signs 11/29/16 10:00 Temperature 36.6 C Pulse Rate 97 Respiratory 18 Rate Blood Pressure 102/75 Blood Pressure 84 Mean O2 Sat by Pulse 95 Oximetry Oxygen Delivery Room Air Method - Abnormal Lab Findings Abnormal Lab Findings: Laboratory Tests 11/29/16 05:10 WBC 8.1 Hgb 10.3 L Hct 30.3 L Plt Count 220 11/29/16 05:10 Plasma Sodium 139 Potassium 3.1 L Chloride 103 Carbon Dioxide 25.9 BUN 2 L Creatinine 0.40 Est GFR (Non-Af Amer) 177 H Calcium Adj for Albumin 9.2 Total Bilirubin 3.8 H AST 92 H ALT 27 Total Protein 4.8 L Albumin 1.5 L - EKG/Xray Findings EKG: other - strip with HR 100-105/min - Exam Constitutional: Present: Thin and frail - lethargic , occassionally answers questions, looks older than stated yrs. Neck: Present: normal inspection, trachea midline Respiratory: Present: rhonchi - Bilaterally. Absent: accessory muscle use Cardiovascular/Chest: Present: regular rate, rhythm, tachycardia Abdomen: Present: Normal bowel sounds, soft, nontender Skin Exam: Present: warm/dry, pallor Eye contact: Present: avoids eye contact, belligerent, uncooperative - Verbally abusive, does not follow commands refuses to walk etc., Cauti Physician Documentation - Urinary Catheter Management Urethral (Ross) Date of Insertion: 11/24/16 Time of Insertion: 20:00 Date of Removal: 11/25/16 Time of Removal: 07:30 Assessment/Plan Plan Narrative: 1. EtOH abuse: Patient on Ativan and being gradually tapered off. Lorazepam 0.5 mg PO Q8H x 1 day and PO q12H and stop. Currently on multivitamin, thiamine and folic acid. 2. Abnormal LFTs: AST> ALT with increased bilirubin and Alk PO4: US liver has not been ordered as patient needs to quit drinking. She refuses any workup. 3. Anemia: Transfuse with 1 unit packed RBC on 11/28/2016 as H/H dropped to 6.1/18.4. Patient empirically started on nadolol/Corgard 10 mg at bedtime due to presumed esophageal varices. 4. Poor oral intake: Low BMI of 15.7. Patient started on mirtazapine 7.5 mg at bedtime. 5. Placement issues : So far all nursing homes refused to take patient as she is verbally abusive and does not follow any commands. She has also refused PT and OT.
[2016-11-30] MEDS: POTASSIUM CHLORIDE 40 MEQ/15 ML BTL PO SCH ×2 (12:35→20:18)
--- NOTE | 2016-11-30 16:57 | PN ---
Subjective - Date and Time Seen Date: 11/30/16 Time: 16:55 Subjective Narrative: More alert, lies in bed does not want to walk, was able to stand for a short period of time at bedside Objective - Review of Systems Generalized/Overall Review: Reports: Weakness Respiratory: Reports: Cough, Shortness of Breath Abdominal: Denies: Nausea, Vomiting - Vitals Vitals: Last Vital Signs Temp 37.3 C 11/30/16 14:37 Pulse 105 H 11/30/16 14:37 Resp 20 11/30/16 14:37 BP 95/70 11/30/16 14:37 Pulse Ox 96 11/30/16 14:37 - Exam Constitutional: Present: Thin and frail, Looks Older than stated age - alert, not able to test orientation as patient does not cooperate ENT Exam: Present: hearing grossly normal Neck: Present: normal inspection, trachea midline Respiratory: Present: no accessory muscle use, rhonchi - Bilaterally Cardiovascular/Chest: Present: regular rate, rhythm. Absent: tachycardia Abdomen: Present: Normal bowel sounds, nontender Extremity: Absent: lower extremity edema - Muscle wasting present Skin Exam: Present: warm/dry, pallor Eye contact: Present: refused to answer, belligerent, uncooperative Cauti Physician Documentation - Urinary Catheter Management Urethral (Ross) Date of Insertion: 11/24/16 Time of Insertion: 20:00 Date of Removal: 11/25/16 Time of Removal: 07:30 Assessment/Plan Plan Narrative: Plan Narrative: 1. EtOH abuse: Admitted with EtOH level of 321. Drug screen negative for other drugs. Patient on Ativan and being gradually tapered off. Lorazepam 0.5 mg PO Q8H x 1 day on 11/29/16 and PO q12H on 11/30/16 and stop. Currently on multivitamin, thiamine and folic acid. 2. Abnormal LFTs: AST> ALT with increased bilirubin and Alk PO4: US liver has not been ordered as patient needs to quit drinking. She refuses any workup/ transfer to of for GI work up etc. 3. Anemia: Transfused with 1 unit packed RBC on 11/28/2016 as H/H dropped to 6.1/18.4. Patient empirically started on nadolol/Corgard 10 mg at bedtime due to presumed esophageal varices on 11/28/16. 4. Poor oral intake: Low BMI of 15.7. Patient started on mirtazapine 7.5 mg at bedtime on 11/28/16. 5. Placement issues : So far all nursing homes refused to take patient as she is verbally abusive and does not follow any commands. She has also refused PT and OT. her friend "VICENTA" is trying to obtain POA to make decisions for her.
[2016-11-30] MEDS: NADOLOL 40 MG TABLET PO SCH ×2 (19:25→20:02)
[2016-12-01] MEDS: PANTOPRAZOLE SODIUM 40 MG TABLET.EC PO SCH (06:33)
[2016-12-01] MEDS: PRENATAL VITS96/IRON FUM/FOLIC 1 TAB TABLET PO SCH (09:13)
[2016-12-01] MEDS: THIAMINE HCL 100 MG TABLET PO SCH (09:13)
[2016-12-01] MEDS: LORazepam 0.5 MG TABLET PO SCH (09:13)
[2016-12-01] MEDS: MULTIVITAMINS 1 CAP CAPSULE PO SCH (09:13)
[2016-12-01] MEDS: FOLIC ACID 1 MG TABLET PO SCH (09:13)
[2016-12-01] MEDS: POTASSIUM CHLORIDE 40 MEQ/15 ML BTL PO SCH ×2 (09:14→20:59)
[2016-12-01] MEDS: NAPH,MB-DB/K PH,MBDB 1 PACKET PACKET PO SCH ×2 (09:14→21:01)
--- NOTE | 2016-12-01 18:12 | PN ---
Subjective - Date and Time Seen Date: 12/01/16 Subjective Narrative: Patient more pleasant today, mood seems to have improved. Attempted to do IS. Discussed about participating in PT and ambulation. has cough which is no worse than before. Objective - Review of Systems Generalized/Overall Review: Reports: Weakness Respiratory: Reports: Cough, Shortness of Breath Cardiac: Denies: Chest Pain, Edema Abdominal: Denies: Nausea, Vomiting - Vitals Vitals: Vital Signs Temp 36.6 C 12/01/16 15:12 Pulse 95 12/01/16 15:12 Resp 18 12/01/16 15:12 BP 81/59 12/01/16 15:12 Pulse Ox 93 12/01/16 15:12 - Abnormal Lab Findings Abnormal Lab Findings: Lab Results 12/01/16 01:00 Stool Occult Blood Positive H - Exam Constitutional: Present: Middle aged, Thin and frail, Looks Older than stated age - alert. ENT Exam: Present: hearing grossly normal Neck: Present: normal inspection, trachea midline Respiratory: Present: no accessory muscle use, rhonchi - bilaterally Cardiovascular/Chest: Present: regular rate, rhythm. Absent: tachycardia Abdomen: Present: Normal bowel sounds, soft, nontender Extremity: Present: no pedal edema - muscle wasting present. Skin Exam: Present: warm/dry, pallor Cauti Physician Documentation - Urinary Catheter Management Urethral (Ross) Date of Insertion: 11/24/16 Time of Insertion: 20:00 Date of Removal: 11/25/16 Time of Removal: 07:30 Assessment/Plan Plan Narrative: 1. Alcohol Abuse: Admitted with EtOH level of 321. Drug screen negative for other drugs. Ativan gradually tapered off on 12/01/16. Currently on multivitamin, thiamine and folic acid. 2. Abnormal LFTs: AST> ALT with increased bilirubin and Alk PO4: US liver has not been ordered as patient needs to quit drinking. She refuses any workup/ transfer to [facility] for GI work up etc. 3. Anemia: Transfused with 1 unit packed RBC on 11/28/2016 as H/H dropped to 6.1/18.4. Patient empirically started on nadolol/Corgard 10 mg at bedtime due to presumed esophageal varices on 11/28/16. has heme positive stools. Recheck labs in AM. 4. Poor oral intake: Low BMI of 15.7. Patient started on mirtazapine 7.5 mg at bedtime on 11/28/16. 5. Placement issues : So far all nursing homes refused to take patient as she is verbally abusive and does not follow any commands. She has also refused PT and OT. her friend "VICENTA" is trying to obtain POA to make decisions for her.
[2016-12-01] MEDS: NADOLOL 40 MG TABLET PO SCH (21:00)
[2016-12-02 06:00] LABS: Hematocrit 32.8 % (37.0-47.0); Hemoglobin 10.6 gm/dL (12.5-16.0); Mean Cell Volume 100.3 fl (78-100); Mean Corpuscular Hemoglobin 32.4 pg (27-31); Mean Corpuscular Hgb Conc 32.3 g/dl (32-36); Mean Platelet Volume 10.9 fl (6.0-9.5); Neutrophil % 65.2 % (42-75.0); Platelet Count 213 K/mm3 (150-450); Red Blood Count 3.27 M/mm3 (4.2-5.4); Red Cell Distribution Width 20.7 % (11.5-14.0); White Blood Count 9.2 K/mm3 (4.0-10.5)
[2016-12-02 06:08] LABS: Total Cells Counted 100
[2016-12-02 06:12] LABS: Albumin * 1.4 gm/dl (3.4-5.0); Anion Gap 14.3 mmol/L (6.8-13.8); BUN/Creatinine Ratio 4.1 (9.0-21.6); Bilirubin, Total 4.1 mg/dL (0.0-1.1); Ca. Corrected For Albumin 9.7 mg/dL (8.4-10.2); Calcium * 7.9 mg/dL (7.9-10.9); Carbon Dioxide 23.7 mmol/L (24-32.6); Total Protein 4.8 gm/dL (6.2-8.2)
[2016-12-02 06:45] LABS: Atypical (Reactive) Lymph 1 % (0-2); Band 2 % (0-2.0); Hypochromia Trace; Lymphocyte 17 % (20-51); Macrocytosis 2+; Monocyte 14 % (0-9); Neutrophil 66 % (42-75); Neutrophil # 6.1 K/mm3 (1.3-6.0); Platelet Estimate Normal (NORMAL); Target Cells Trace
[2016-12-02] MEDS: PANTOPRAZOLE SODIUM 40 MG TABLET.EC PO SCH (07:12)
[2016-12-02] MEDS: MULTIVITAMINS 1 CAP CAPSULE PO SCH (09:18)
[2016-12-02] MEDS: THIAMINE HCL 100 MG TABLET PO SCH (09:18)
[2016-12-02] MEDS: FOLIC ACID 1 MG TABLET PO SCH (09:18)
[2016-12-02] MEDS: PRENATAL VITS96/IRON FUM/FOLIC 1 TAB TABLET PO SCH (09:18)
[2016-12-02] MEDS: NAPH,MB-DB/K PH,MBDB 1 PACKET PACKET PO SCH ×2 (09:18→20:44)
[2016-12-02] MEDS: POTASSIUM CHLORIDE 40 MEQ/15 ML BTL PO SCH (09:22)
[2016-12-02] MEDS ORDERED: NORMAL SALINE 500 ML IV ONE ×2 (09:52→19:40)
[2016-12-02] MEDS: NORMAL SALINE 1,000 ML IV PRN ×2 (10:26→20:44)
[2016-12-02] MEDS: NADOLOL 40 MG TABLET PO SCH (19:45)
[2016-12-03] MEDS: PANTOPRAZOLE SODIUM 40 MG TABLET.EC PO SCH ×2 (06:48→08:41)
[2016-12-03] MEDS: FOLIC ACID 1 MG TABLET PO SCH (08:41)
[2016-12-03] MEDS: MULTIVITAMINS 1 CAP CAPSULE PO SCH (08:41)
[2016-12-03] MEDS: PRENATAL VITS96/IRON FUM/FOLIC 1 TAB TABLET PO SCH (08:41)
[2016-12-03] MEDS: THIAMINE HCL 100 MG TABLET PO SCH (08:41)
[2016-12-03] MEDS: NAPH,MB-DB/K PH,MBDB 1 PACKET PACKET PO SCH (08:42)
[2016-12-03] MEDS: NORMAL SALINE 1,000 ML IV PRN (11:00)
--- NOTE | 2016-12-03 12:12 | PN ---
Subjective - Date and Time Seen Date: 12/03/16 Time: 09:30 Subjective Narrative: Patient was awake and alert. In a pleasant mood and said she would like to work with PT so that she can walk to and use the bathroom alone. Cough and breathing seem to have improved. Objective - Review of Systems Generalized/Overall Review: Reports: Weakness, Fatigue Respiratory: Reports: Cough, Shortness of Breath Cardiac: Denies: Chest Pain, Palpitations Abdominal: Denies: No Symptoms Reported Neurological: Reports: Weakness - Vitals Vitals: Last Vital Signs 12/03/16 08:00 Temperature 36.6 C Pulse Rate 92 Respiratory 18 Rate Blood Pressure 114/70 Blood Pressure 84 Mean O2 Sat by Pulse 98 Oximetry Oxygen Delivery Room Air Method - Exam Constitutional: Present: Alert, Cooperative, Middle aged, Thin and frail, Looks Older than stated age Respiratory: Present: rhonchi. Absent: wheezing Cardiovascular/Chest: Present: regular rate, rhythm. Absent: tachycardia Abdomen: Present: Normal bowel sounds, soft, nontender Neurologic: Present: alert, motor weakness Eye contact: Present: cooperative Cauti Physician Documentation - Urinary Catheter Management Urethral (Ross) Date of Insertion: 11/24/16 Time of Insertion: 20:00 Date of Removal: 11/25/16 Time of Removal: 07:30 Assessment/Plan Plan Narrative: 1. Hypotension: Patient has had persistent hypotension since admission. Hypotension worsened . Patient given 500 ml x1 bolus in AM of 12/02/16 with some improvement in BP, another 500 ml bolus was given in the PM of 12/02/16. BP improved to acceptable levels. BP and lung sounds will be monitored to see if additional intervention is needed. 2. Alcohol Abuse: Admitted with EtOH level of 321. Drug screen negative for other drugs. Ativan tapered off on 12/01/16. Currently on multivitamin, thiamine and folic acid. 3. Abnormal LFTs: AST> ALT with increased bilirubin and Alk PO4: US liver has not been ordered as patient needs to quit drinking. She refuses any workup/ transfer to of for GI work up etc. 4. Anemia: Transfused with 1 unit packed RBC on 11/28/2016 as H/H dropped to 6.1/18.4. Patient empirically started on nadolol/Corgard 10 mg at bedtime due to presumed esophageal varices on 11/28/16. has heme positive stools. 5. Poor oral intake: Low BMI of 15.7. Patient started on mirtazapine 7.5 mg at bedtime on 11/28/16. 6. Placement issues: So far all nursing homes refused to take patient as she is verbally abusive and does not follow any commands. She has also refused PT and OT. her friend "VICENTA" is trying to obtain POA to make decisions for her.
--- NOTE | 2016-12-03 12:13 | PN ---
Subjective - Date and Time Seen Date: 12/02/16 Time: 12:00 Subjective Narrative: Patient was lethargic and not very communicative. She stated that she did not want to talk and just wants to go home. Objective - Review of Systems Generalized/Overall Review: Reports: Weakness Respiratory: Reports: Cough, Shortness of Breath Neurological: Reports: Depressed, Weakness - Vitals Vitals: Vital Signs 12/02/16 10:15 Temperature 36.8 C Pulse Rate 77 Respiratory 18 Rate Blood Pressure 90/60 Blood Pressure 70 Mean O2 Sat by Pulse 97 Oximetry Oxygen Delivery Room Air Method - Abnormal Lab Findings Abnormal Lab Findings: Laboratory Tests 12/02/16 05:30 WBC 9.2 Hgb 10.6 L Hct 32.8 L Plt Count 213 12/02/16 05:30 Plasma Sodium 138 Potassium 4.0 D Chloride 104 Carbon Dioxide 23.7 L Anion Gap 14.3 H BUN 2 L Creatinine 0.49 Est GFR (Non-Af Amer) 140 H D Calcium Adj for Albumin 9.7 Total Bilirubin 4.1 H AST 75 H ALT 25 Alkaline Phosphatase 295 H Total Protein 4.8 L Albumin 1.4 L - Exam Constitutional: Present: Lethargic, Middle aged, Looks Older than stated age Respiratory: Present: rhonchi, No wheezing. Absent: accessory muscle use Cardiovascular/Chest: Present: regular rate, rhythm. Absent: tachycardia Abdomen: Present: Normal bowel sounds, soft Neurologic: Present: motor weakness, depressed affect - muscle wasting present Appearance: Present: disheveled Eye contact: Present: refused to answer, belligerent Cauti Physician Documentation - Urinary Catheter Management Urethral (Ross) Date of Insertion: 11/24/16 Time of Insertion: 20:00 Date of Removal: 11/25/16 Time of Removal: 07:30 Assessment/Plan Plan Narrative: 1. Hypotension: Patient has had persistent hypotension since admission. Hypotension worsened today 12/02/16. Patient given 500 ml x1 in the morning. BP and lung sounds will be monitored to see if additional intervention is needed. 2. Alcohol Abuse: Admitted with EtOH level of 321. Drug screen negative for other drugs. Ativan tapered off on 12/01/16. Currently on multivitamin, thiamine and folic acid. 3. Abnormal LFTs: AST> ALT with increased bilirubin and Alk PO4: US liver has not been ordered as patient needs to quit drinking. She refuses any workup/ transfer to [facility] for GI work up etc. 4. Anemia: Transfused with 1 unit packed RBC on 11/28/2016 as H/H dropped to 6.1/18.4. Patient empirically started on nadolol/Corgard 10 mg at bedtime due to presumed esophageal varices on 11/28/16. has heme positive stools. 5. Poor oral intake: Low BMI of 15.7. Patient started on mirtazapine 7.5 mg at bedtime on 11/28/16. 6. Placement issues: So far all nursing homes refused to take patient as she is verbally abusive and does not follow any commands. She has also refused PT and OT. her friend "VICENTA" is trying to obtain POA to make decisions for her.
[2016-12-03] MEDS: NADOLOL 40 MG TABLET PO SCH (19:42)
[2016-12-04] MEDS: PANTOPRAZOLE SODIUM 40 MG TABLET.EC PO SCH (06:54)
[2016-12-04] MEDS: MULTIVITAMINS 1 CAP CAPSULE PO SCH (08:37)
[2016-12-04] MEDS: FOLIC ACID 1 MG TABLET PO SCH (08:38)
[2016-12-04] MEDS: THIAMINE HCL 100 MG TABLET PO SCH (08:38)
[2016-12-04] MEDS: PRENATAL VITS96/IRON FUM/FOLIC 1 TAB TABLET PO SCH (08:38)
[2016-12-04] MEDS: NADOLOL 40 MG TABLET PO SCH (20:38)
[2016-12-05] MEDS: PRENATAL VITS96/IRON FUM/FOLIC 1 TAB TABLET PO SCH (09:08)
[2016-12-05] MEDS: MULTIVITAMINS 1 CAP CAPSULE PO SCH (09:08)
[2016-12-05] MEDS: FOLIC ACID 1 MG TABLET PO SCH (09:08)
[2016-12-05] MEDS: THIAMINE HCL 100 MG TABLET PO SCH (09:08)
[2016-12-05] MEDS: PANTOPRAZOLE SODIUM 40 MG TABLET.EC PO SCH (09:08)
[2016-12-05 11:49] VITALS: BP 99/56
--- NOTE | 2016-12-05 13:22 | PN ---
Subjective - Date and Time Seen Date: 12/04/16 Time: 11:00 Subjective Narrative: more coherent ; ambulating with walker and assist of one about 100 feet.appetite continues to be poor. Objective - Review of Systems Generalized/Overall Review: Reports: Weakness Respiratory: Reports: Cough. Denies: Shortness of Breath Cardiac: Denies: Chest Pain, Edema - Vitals Vitals: Last Vital Signs 12/04/16 10:35 Temperature 36.6 C Pulse Rate 82 Respiratory 20 Rate Blood Pressure 116/58 O2 Sat by Pulse 98 Oximetry Oxygen Flow 0 Rate - Exam Constitutional: Present: Middle aged, Looks Older than stated age - malnourished , thin and frail. Neck: Present: normal inspection, trachea midline Respiratory: Present: no accessory muscle use, rhonchi - bilaterally Cardiovascular/Chest: Present: regular rate, rhythm. Absent: tachycardia Abdomen: Present: Normal bowel sounds, soft, nontender Extremity: Present: other - muscle wasting present , no edema Eye contact: Present: cooperative - occassionally combative. Cauti Physician Documentation - Urinary Catheter Management Urethral (Ross) Date of Insertion: 11/24/16 Time of Insertion: 20:00 Date of Removal: 11/25/16 Time of Removal: 07:30 Assessment/Plan Plan Narrative: 1. Hypotension: Patient has had persistent hypotension since admission. Hypotension worsened . Patient given 500 ml x1 bolus in AM of 12/02/16 with some improvement in BP, another 500 ml bolus was given in the PM of 12/02/16. BP improved to acceptable levels. BP and lung sounds will be monitored to see if additional intervention is needed. 2. Alcohol Abuse: Admitted with EtOH level of 321. Drug screen negative for other drugs. Ativan tapered off on 12/01/16. Currently on multivitamin, thiamine and folic acid. 3. Abnormal LFTs: AST> ALT with increased bilirubin and Alk PO4: US liver has not been ordered as patient needs to quit drinking. She refuses any workup/ transfer to [facility] for GI work up etc. 4. Anemia: Transfused with 1 unit packed RBC on 11/28/2016 as H/H dropped to 6.1/18.4. Patient empirically started on nadolol/Corgard 10 mg at bedtime due to presumed esophageal varices on 11/28/16. has heme positive stools, now currently negative. 5. Poor oral intake: Low BMI of 15.7. Patient started on mirtazapine 7.5 mg at bedtime on 11/28/16. 6. Placement issues: So far all nursing homes refused to take patient as she is verbally abusive and does not follow any commands. She has also refused PT and OT. her friend "VICENTA" is trying to obtain POA to make decisions for her.
--- NOTE | 2016-12-05 14:27 | DS ---
(1) Chronic alcohol abuse Problem: Chronic (2) Abnormal liver function tests Diagnosis(s): Elevation in transaminases, alkaline phosphatase, bilirubin, due to EtOH. Problem: Chronic (3) Low BMI Diagnosis(s): Due to chronic malnutrition. Problem: Chronic (4) Anemia Diagnosis(s): Requiring blood transfusion.; had heme positive stools in the past. Problem: Chronic Qualifiers: Anemia type: unspecified type Qualified Code(s): D64.9 - Anemia, unspecified (5) Anxiety and depression Diagnosis(s): with possible bipolar disorder Problem: Chronic (6) Rib fractures Diagnosis(s): Left sided rib fractures 7-9 ;fall from a standing height. Problem: Acute Qualifiers: Encounter type: initial encounter Rib fracture type: multiple ribs Fracture type: closed Laterality: left Qualified Code(s): S22.42XA - Multiple fractures of ribs, left side, initial encounter for closed fracture Description of Stay: DATE OF ADMISSION: 11/24/2016. DATE OF DISCHARGE: 12/05/2016. DIAGNOSTICS: HEAD CT W/O 11/24/2016. 1. No acute intracranial process. 2. Mild cerebral volume loss 3. Mild chronic small vessel ischemic disease. CXR 12/04/16: New acute fractures involving the Left lateral 7,8, 9th ribs. No pleural effusions, no pneumothorax. DISCHARGE SUMMARY: Luz Elena Smith is a 55-year-old WF with a history of EtOH abuse, liver disease secondary to above who was brought to the ER by EMS as a caregiver reported that he was unable to take care of her in the last 1-2 weeks. His states that the patient has been gradually declining, not eating or drinking and would not let the caregiver change her depends.[Information obtained from EMR/prior H&P/ PJ]. On admission EtOH level 321 mg, K+ 2.1, AST/ALT 268/419, H/H8.3/23.5. Tox screen negative for other drugs. She also has a BMI of 15.7 and left rib fractures 7-9 /pain. PMH significant for bipolar disorder/PTSD/seizures and possible CVA. Head CT on admission did not show any acute abnormalities. The patient was admitted for serial labs and telemetry. Patient initially refused to eat/walk, PT/OT. She also required a unit of packed RBC has a hemoglobin dropped to 6.3. She refused all testing including transfer to [facility]. She was later placed on lorazepam after 2-3 days after hospitaization for prevention of DTs and eventually the medication was tapered off. Patient was verbally abusive on several occasions. She was placed on Remeron/mirtazapine at 7.5 mg with mild improvement in symptoms. No halfway was willing to accept her. She was eventually able to walk 5-10 feet with the help of a walker at the time of discharge. Patient may have alcohol related dementia however no testing was done as she did not cooperate. Patient was discharged on 12/05/16 under the care of PJ. Procedures Performed: none Results and Findings: Laboratory Tests 11/24/16 11/28/16 11/29/16 18:25 05:05 05:10 05:30 WBC 6.7 7.7 8.1 9.2 Hgb 8.3 L 6.1 L* 10.3 L 10.6 Hct 23.5 L* 18.4 L* 30.3 L 32.8 Plt Count 388 256 220 213 11/24/16 11/27/16 12/02/16 18:25 05:05 05:30 Plasma Sodium 130 133 138 Potassium 2.1 L* D 3.1 L 4.0 D Chloride 86 L 96 L 104 Carbon Dioxide 27.2 28.9 23.7 L BUN 6 D 3 2 L Creatinine 0.41 0.46 0.49 Est GFR (Non-Af Amer) 172 H 150 H 140 H D Random Glucose 76 Calcium Adj for Albumin 9.0 9.4 9.7 Total Bilirubin 3.2 H 3.5 H 4.1 H AST 268 H 151 H 75 H ALT 42 32 25 Alkaline Phosphatase 419 H 349 H 295 H Total Protein 5.7 L 5.0 L 4.8 L Albumin 1.7 L 1.4 L 11/24/16 18:25 Lactic Acid, Venous 1.6 Ammonia 25.0 Discharge Disposition: Home self care Disposition: Home self-care Condition: Undetermined Discharge Activity: Activity as tolerated - ambulate with walker with all times. Discharge Diet: General/regular food, High Fiber - vanilla / strawbwrry milk skakes. Skilled Nursing Therapy: Physicial Therapy, Occupation Therapy Problem Oriented Discharge Instructions to Patient/Family: Alcohol Use Disorder Additional Patient Instructions (free text): [facility]. Please fax orders, face to face and H&P upon discharge. NEW PRESCRIPTIONS: 1. Omeprazole 20 mg half hour before breakfast. 2. Mirtazapine 7.5 mg at bedtime. 3. Nadolol/corgard 10 mg at bedtime MEDS AT LUNCHTIME:{VITAMINS} 1.Vitamin D3 2000 units. 2. Thiamine 100 mg daily. 3. Folic acid 1 mg daily 4. vitamin 1 tablet daily. QUIT ALCOHOL. APPOINTMENT WITH DR. Wolfe IN 1-2 WEEKS on 12-17-16 @ 1:00pm Prescriptions (Any new or edited meds): Cholecalciferol (Vitamin D3) [Vitamin D3] 2,000 unit PO DAILY #100 capsule Mirtazapine 7.5 mg PO DAILY@1999 #30 tablet Nadolol [Corgard] 10 mg PO DAILY@2100 #30 tablet Omeprazole 20 mg PO DAILY@0700 #30 tablet. Complete Home Medications List: Complete Home Medication List: Folic Acid 1 mg PO DAILY #30 tablet 09/26/16 Thiamine HCl [B-1] 100 mg PO DAILY 11/24/16 Cholecalciferol (Vitamin D3) [Vitamin D3] 2,000 unit PO DAILY #100 capsule 12/05 Mirtazapine 7.5 mg PO DAILY@1999 #30 tablet 12/05/16 Nadolol [Corgard] 10 mg PO DAILY@2100 #30 tablet 12/05/16 Omeprazole 20 mg PO DAILY@0700 #30 tablet. 12/05/16
== END 2016-12-05 15:24 | disposition home or self-care (01) | DRG 184 ==
LOC: ER 17:59 → MS 20:14 → SCU 20:20 → MS 11-25 19:36
PROVIDERS: ADMIT Nurse Practitioner Gerontology; ATTEND Internal Medicine
PROC: 0T9B70Z Drainage of Bladder with Drainage Device, Via Natural or Artificial Opening (ICD-10-PCS; principal; 2016-11-24)
PROC: HZ2ZZZZ Detoxification Services for Substance Abuse Treatment (ICD-10-PCS; 2016-11-24)
PROC: 4A033R1 Measurement of Arterial Saturation, Peripheral, Percutaneous Approach (ICD-10-PCS; 2016-11-24)
PROC: 30263N1 (ICD-10-PCS; 2016-11-28)
DX: S22.42XA Multiple fractures of ribs, left side, initial encounter for closed fracture (principal); Z68.1 Body mass index [BMI] 19.9 or less, adult; E46 Unspecified protein-calorie malnutrition; I85.10 Secondary esophageal varices without bleeding; F10.221 Alcohol dependence with intoxication delirium; Y92.009 Unspecified place in unspecified non-institutional (private) residence as the place of occurrence of the external cause; Z91.81 History of falling; W19.XXXA Unspecified fall, initial encounter; Y90.8 Blood alcohol level of 240 mg/100 ml or more; K70.9 Alcoholic liver disease, unspecified; I95.9 Hypotension, unspecified; D64.9 Anemia, unspecified; R29.90 Unspecified symptoms and signs involving the nervous system; E87.6 Hypokalemia; F17.210 Nicotine dependence, cigarettes, uncomplicated; J44.9 Chronic obstructive pulmonary disease, unspecified; F31.9 Bipolar disorder, unspecified
CPT/HCPCS: 36415; 36600; 51702; 70450; 71010; 80053; 80307; 81001; 82140; 82272; 82803; 83605; 83735; 84100; 85007; 85025; 85027; 85610; 85730; 86850; 86900; 87040; 87086; 93005; 96365; 96375; 97110; 97116; 97162; 97530; 99285; G0481; P9016

== ENCOUNTER 2016-12-24 02:17 | Inpatient (IN) | payer MEDICAID ==
--- NOTE | 2016-12-24 02:45 | ERNOTE ---
Lower Extremity HPI - General Lower Extremities Pain: leg: bilateral, thigh: bilateral - diffuse Time Seen by Provider: 12/24/16 02:30 Source: patient Exam Limitations: clinical condition - Immun/Allergies/Home Medications Immunizations: IMMUNIZATION HX Immunizations Up to Date No: unknown History of Influenza Vaccine No Hx Pneumococcal Vaccination No Allergies/Adverse Reactions: Allergies Allergy/AdvReac Type Severity Reaction Status Date / Time tramadol Allergy Severe Other Verified 11/24/16 18:10 naproxen sodium [From Aleve] Allergy Intermediate Hives Verified 11/24/16 18:10 Penicillins Allergy Intermediate Hives Verified 11/24/16 18:10 Home Medications: HOME MEDICATIONS Folic Acid 1 mg PO DAILY #30 tablet 09/26/16 [Last Taken Unknown] Vits96/Iron Fum/Folic [ S] 1 tab PO BID tablet 10/19/16 [Last Taken Unknown] Thiamine HCl [B-1] 100 mg PO DAILY 11/24/16 [Last Taken Unknown] Cholecalciferol (Vitamin D3) [Vitamin D3] 2,000 unit PO DAILY #100 capsule 12/05 [Last Taken Unknown] Mirtazapine 7.5 mg PO DAILY@2000 #30 tablet 12/05/16 [Last Taken Unknown] Nadolol [Corgard] 10 mg PO DAILY@2100 #30 tablet 12/05/16 [Last Taken Unknown] Omeprazole 20 mg PO DAILY@0700 #30 tablet. 12/05/16 [Last Taken Unknown] - History of Present Illness Narrative: Pt brought to ED per EMS with c/o abdominal and LE pain. Method of Injury: Reports: unknown Loss of Consciousness: Reports: no loss of consciousness Modifying Factors - (Improves): Reports: immobilization Modifying Factors - (Worsens): Reports: movement Review of Systems - Narrative Narrative: Pt not willing to answer questions and refuses after a few questions - Review of Systems Constitutional: Present: recent illness Respiratory: Absent: shortness of breath Cardiology: Absent: chest pain Gastrointestinal/Abdominal: Present: abdominal pain Genitourinary: Absent: frequency - Patient's Past Medical History Patient History - Medical: Alcohol Abuse, Bipolar, Depression, Other Patient History - Cardiac/Respiratory: COPD, CVA/Stroke Patient History - Cancer: No Hx of Cancer Patient History - Surgical Procedures: Hysterectomy Patient History - Other: None - Family History Mother Family History - Medical: History Unknown Father Family History - Medical: History Unknown - Social History Living Situations: home Abuse History: Suspected abuse, Hx of Substance Use Psych History: Hx of Anxiety, Hx of Depression, Hx of Bipolar Disorder Smoking Status: Current every day smoker Have you smoked in the past 12 months: No Do you dip or chew tobacco: No Alcohol Use: heavy Drug Use: none - Immunizations Immunizations Up to Date: No - unknown Hx Pneumococcal Vaccination: No History of Influenza Vaccine: No Physical Exam - Physical Exam General Appearance: Present: wd/wn, alert, mild distress, anxious Head Exam: Present: normal inspection, no evidence of injury Neck: Present: normal inspection, nontender, supple Respiratory: Present: no respiratory distress, normal breath sounds, no accessory muscle use, lungs clear Cardiovascular/Chest: Present: regular rate, rhythm, no murmur, normal peripheral pulses Gastrointestinal/Abdominal: Present: normal bowel sounds, tenderness - diffuse, abnormal bowel sounds - hypoactive, distended. Absent: guarding, rebound Back Exam: Present: normal inspection Extremity Exam: Present: no edema Neurological Exam: Present: alert, normal cerebellar test Skin Exam: Present: normal color, warm/dry Lymphatic Exam: Present: no adenopathy ED Progress - Results and Orders Patient's Lab Results:: I have reviewed the patient's lab results. Results and Orders: Laboratory Tests 12/24/16 12/24/16 02:45 02:45 WBC 20.2 H Hgb 10.4 L Hct 29.3 L Plt Count 401 Sodium 134 Potassium 1.8 L* D Chloride 96 L Carbon Dioxide 30.3 BUN 2 L Creatinine 0.56 Random Glucose 124 H Calcium 8.1 Total Bilirubin 6.9 H AST 94 H ALT 27 Alkaline Phosphatase 288 H Total Protein 5.2 L Albumin 1.3 L Amylase 7 L Lipase 29 L Ethyl Alcohol Less than 3.0 - Vital Signs Patient's Vital Signs:: I have reviewed the patient's vital signs. Vital Signs: Vital Signs 12/24/16 12/24/16 02:19 02:25 Temperature 36.5 C Pulse Rate 102 H 101 H Respiratory 16 20 Rate Blood Pressure 101/71 O2 Sat by Pulse 95 Oximetry - X-Ray X-Ray #1 X-Ray: abdomen Interpretation: Interp. by me X-ray Comments: moderate gas filled loops. No definite signs of bowel obstruction. - Progress/Reassessment Chief Complaint: Lower Extremity Pain/ Injury Progress:: Unchanged Progress Note-Subjective: 12/24/16 03:45 Talked to the patient about her elevated WBC and abdominal discomfort and distension. I suggested a CT scan to further evaluate for SBO. Pt did not want to talk about it and told me to stop bugging her and then told me to get out of the room (with profanity). 12/24/16 04:05 Spoke with Viji BIRD hospitalist, she agrees with admit. Departure Clinical Impression: Hypokalemia, Transaminase or LDH elevation, Jaundice, hepatocellular Anemia Qualifiers: Anemia type: unspecified type Qualified Code(s): D64.9 - Anemia, unspecified - Departure Disposition: [facility] Condition: Poor
[2016-12-24 02:56] LABS: Hematocrit 29.3 % (37.0-47.0); Hemoglobin 10.4 gm/dL (12.5-16.0); Mean Cell Volume 90.7 fl (78-100); Mean Corpuscular Hemoglobin 32.2 pg (27-31); Mean Corpuscular Hgb Conc 35.5 g/dl (32-36); Mean Platelet Volume 10.1 fl (6.0-9.5); Platelet Count 401 K/mm3 (150-450); Red Blood Count 3.23 M/mm3 (4.2-5.4); Red Cell Distribution Width 18.3 % (11.5-14.0); White Blood Count 20.2 K/mm3 (4.0-10.5)
[2016-12-24 03:05] LABS: Total Cells Counted 100
[2016-12-24 03:18] LABS: ALT 27 U/L (19-67); AST 94 U/L (0-48); Albumin * 1.3 gm/dl (3.4-5.0); Alkaline Phosphatase * 288 U/L (50-170); Amylase * 7 U/L (25-115); Anion Gap 9.5 mmol/L (6.8-13.8); BUN/Creatinine Ratio 3.6 (9.0-21.6); Bilirubin, Total 6.9 mg/dL (0.0-1.1); Blood Urea Nitrogen 2 mg/dL (3-23); Ca. Corrected For Albumin 9.9 mg/dL (8.4-10.2); Calcium * 8.1 mg/dL (7.9-10.9); Carbon Dioxide 30.3 mmol/L (24-32.6); Chloride 96 mmol/L (97-106); Glucose * 124 mg/dL (70-110); Lipase 29 U/L (73-393); Sodium 134 mmol/L (132-142); Total Protein 5.2 gm/dL (6.2-8.2)
[2016-12-24 03:20] LABS: Potassium 1.8 mmol/L (3.4-4.6)
[2016-12-24] MEDS ORDERED: POTASSIUM CHLORIDE 20 MEQ TABLET.SA PO ONE ×4 (03:22→15:17)
[2016-12-24] MEDS ORDERED: POTASSIUM CHLORIDE 40 MEQ in NORMAL SALINE 1,000 ML IV ONE (03:28)
[2016-12-24] MEDS ORDERED: POTASSIUM CHLORIDE 40 MEQ in NORMAL SALINE 1,000 ML IV SCH (03:45)
[2016-12-24 03:46] LABS: Lymphocyte 12 % (20-51); Monocyte 12 % (0-9); Neutrophil 76 % (42-75); Neutrophil # 15.4 K/mm3 (1.3-6.0)
[2016-12-24 03:47] LABS: Hypersegmented Polys 1+; Microcytosis 2+; Platelet Estimate Increased (NORMAL); Target Cells 3+; Toxic Granulation 3+
[2016-12-24 03:49] LABS: Prothrombin Time (Patient) 19.2 Seconds (9.0-11.0)
[2016-12-24 03:50] LABS: INR 1.91 INR (0.90-1.10)
[2016-12-24] MEDS: LORazepam 2 MG/ML DISP.SYRIN IV PRN (07:39)
[2016-12-24] MEDS: POTASSIUM CHLORIDE 100 ML IV SCH ×8 (08:25→23:52)
--- NOTE | 2016-12-24 15:28 | HP ---
Chief Complaint - Chief Complaint Date of Service: 12/24/16 Time of Service: 08:15 Chief Complaint: Weakness, abdominal pain History of Present Illness: Luz Elena is a 56 yo female. She refuses to answer any questions. Her response to every question is "good night". - Patient's Past Medical History Patient History - Medical: Alcohol Abuse, Bipolar, Depression Patient History - Cardiac/Respiratory: COPD, CVA/Stroke Patient History - Cancer: No Hx of Cancer Patient History - Surgical Procedures: Hysterectomy Patient History - Other: None - Family History Mother Family History - Medical: History Unknown Family History - Cardiac/Respiratory: History Unknown Family History - Cancer: History Unknown Father Family History - Medical: History Unknown Family History - Cardiac/Respiratory: History Unknown Family History - Cancer: History Unknown - Social History Living Situations: home Abuse History: Suspected abuse, Hx of Substance Use Psych History: Hx of Anxiety, Hx of Depression, Hx of Bipolar Disorder Smoking Status: Current every day smoker Have you smoked in the past 12 months: No Do you dip or chew tobacco: No Patient requests Smoking Cessation Consult: No Initiate information on Smoking Cessation: Yes Alcohol Use: heavy Drug Use: none - Immunizations Immunizations Up to Date: No - unknown Hx Pneumococcal Vaccination: No History of Influenza Vaccine: No Review Of Systems (GEN) - Review of Systems Additional Comments: Unable to perform ROS due to patient refusing to answer any questions. Immunizations: IMMUNIZATION HX Immunizations Up to Date No: unknown History of Influenza Vaccine No Hx Pneumococcal Vaccination No Allergies/Adverse Reactions: Allergies Allergy/AdvReac Type Severity Reaction Status Date / Time tramadol Allergy Severe Other Verified 11/24/16 18:10 naproxen sodium [From Aleve] Allergy Intermediate Hives Verified 11/24/16 18:10 Penicillins Allergy Intermediate Hives Verified 11/24/16 18:10 Home Medications: HOME MEDICATIONS Folic Acid 1 mg PO DAILY #30 tablet 09/26/16 [Last Taken Unknown] Vits96/Iron Fum/Folic [ S] 1 tab PO BID tablet 10/19/16 [Last Taken Unknown] Thiamine HCl [B-1] 100 mg PO DAILY 11/24/16 [Last Taken Unknown] Cholecalciferol (Vitamin D3) [Vitamin D3] 2,000 unit PO DAILY #100 capsule 12/05 [Last Taken Unknown] Mirtazapine 7.5 mg PO DAILY@1999 #30 tablet 12/05/16 [Last Taken Unknown] Nadolol [Corgard] 10 mg PO DAILY@2100 #30 tablet 12/05/16 [Last Taken Unknown] Omeprazole 20 mg PO DAILY@0700 #30 tablet. 12/05/16 [Last Taken Unknown] Exam - Exam Vital Signs: Vital Signs - Last Taken Temp 36.7 C 12/24/16 10:56 Pulse 106 H 12/24/16 10:56 Resp 17 12/24/16 10:56 BP 97/69 12/24/16 10:56 Pulse Ox 99 12/24/16 10:56 Constitutional: Present: Alert, Thin and frail, Looks Older than stated age. Absent: Cooperative Eye Exam: bilateral eye: normal inspection Respiratory: Present: lungs clear, normal breath sounds Cardiovascular/Chest: Present: no murmur, tachycardia Abdomen: Present: Normal bowel sounds, soft, nontender, nondistended Extremity: Present: no pedal edema, normal capillary refill Skin Exam: Present: normal color, warm/dry, no cyanosis Lymphatic: Present: no adenopathy Eye contact: Present: avoids eye contact, refused to answer, belligerent Diagnostic Studies: Abnormal Lab Results 12/24/16 12/24/16 Range/Units 12:55 12:55 Potassium 2.8 L D (3.4-4.6) mmol/L Ammonia 52.0 H (11-35) mcmol/L Laboratory Results WBC 20.2 K/mm3 (4.0-10.5) H 12/24/16 02:45 RBC 3.23 M/mm3 (4.2-5.4) L 12/24/16 02:45 Hgb 10.4 gm/dL (12.5-16.0) L 12/24/16 02:45 Hct 29.3 % (37.0-47.0) L 12/24/16 02:45 MCV 90.7 fl (78-100) 12/24/16 02:45 MCH 32.2 pg (27-31) H 12/24/16 02:45 MCHC 35.5 g/dl (32-36) 12/24/16 02:45 RDW 18.3 % (11.5-14.0) H 12/24/16 02:45 Plt Count 401 K/mm3 (150-450) 12/24/16 02:45 MPV 10.1 fl (6.0-9.5) H 12/24/16 02:45 Neutrophils % (Manual) 76 % (42-75) H 12/24/16 02:45 Lymphocytes % (Manual) 12 % (20-51) L 12/24/16 02:45 Monocytes % (Manual) 12 % (0-9) H 12/24/16 02:45 Neutrophils # (Manual) 15.4 K/mm3 (1.3-6.0) H 12/24/16 02:45 Lymphocytes # (Manual) 2.4 k/mm3 (1.5-3.5) 12/24/16 02:45 Monocytes # (Manual) 2.4 k/mm3 (0.0-1.0) H 12/24/16 02:45 Hypersegmented Polys 1+ 12/24/16 02:45 Toxic Granulation 3+ 12/24/16 02:45 Platelet Estimate Increased (NORMAL) H 12/24/16 02:45 Microcytosis 2+ 12/24/16 02:45 Target Cells 3+ 12/24/16 02:45 PT 19.2 Seconds (9.0-11.0) H 12/24/16 03:35 INR (Anticoag Therapy) 1.91 INR (0.90-1.10) H 12/24/16 03:35 Sodium 134 mmol/L (132-142) 12/24/16 02:45 Plasma Sodium 134 mmol/L (130-142) 12/24/16 02:45 Potassium 2.8 mmol/L (3.4-4.6) L D 12/24/16 12:55 Chloride 96 mmol/L (97-106) L 12/24/16 02:45 Carbon Dioxide 30.3 mmol/L (24-32.6) 12/24/16 02:45 Anion Gap 9.5 mmol/L (6.8-13.8) 12/24/16 02:45 BUN 2 mg/dL (3-23) L 12/24/16 02:45 Creatinine 0.56 mg/dL (0.4-1.4) 12/24/16 02:45 Est GFR (Non-Af Amer) 119 mL/min (60-130) 12/24/16 02:45 BUN/Creatinine Ratio 3.6 (9.0-21.6) L 12/24/16 02:45 Random Glucose 124 mg/dL (70-110) H 12/24/16 02:45 Lactic Acid, Venous 1.8 mmol/L (0.4-1.9) 12/24/16 03:47 Calcium 8.1 mg/dL (7.9-10.9) 12/24/16 02:45 Calcium Adj for Albumin 9.9 mg/dL (8.4-10.2) 12/24/16 02:45 Total Bilirubin 6.9 mg/dL (0.0-1.1) H 12/24/16 02:45 GGT 763 U/L (4-104) H 12/24/16 03:35 AST 94 U/L (0-48) H 12/24/16 02:45 ALT 27 U/L (19-67) 12/24/16 02:45 Alkaline Phosphatase 288 U/L (50-170) H 12/24/16 02:45 Ammonia 52.0 mcmol/L (11-35) H 12/24/16 12:55 Total Protein 5.2 gm/dL (6.2-8.2) L 12/24/16 02:45 Albumin 1.3 gm/dl (3.4-5.0) L 12/24/16 02:45 Amylase 7 U/L (25-115) L 12/24/16 02:45 Lipase 29 U/L (73-393) L 12/24/16 02:45 Ethyl Alcohol Less than 3.0 mg/dL (0.0-10.0) 12/24/16 02:45 Assessment/Plan - Assessment/Plan (1) Hypokalemia Assessment: Critical hypokalemia of 1.8 will replace with potassium riders and oral potassium as able. Patient refused oral potassium early. Will monitor telemetry and potassium as its replaced. Due to significant hypokalemia will take >2 midnights to replace and monitor. Will admit to acute inpatient status. Problem: Acute (2) Leukocytosis Assessment: Unknown etiology. Patient is declining any further studies at this time. Problem: Acute
[2016-12-24] MEDS ORDERED: ONDANSETRON HCL/PF 2 MG/ML VIAL IV PRN (21:08)
[2016-12-25] MEDS: LORazepam 2 MG/ML DISP.SYRIN IV PRN (01:53)
[2016-12-25 08:37] LABS: Hematocrit 27.9 % (37.0-47.0); Hemoglobin 9.5 gm/dL (12.5-16.0); Mean Cell Volume 94.9 fl (78-100); Mean Corpuscular Hemoglobin 32.3 pg (27-31); Mean Corpuscular Hgb Conc 34.1 g/dl (32-36); Mean Platelet Volume 10.3 fl (6.0-9.5); Neutrophil % 83.2 % (42-75.0); Platelet Count 337 K/mm3 (150-450); Red Blood Count 2.94 M/mm3 (4.2-5.4); Red Cell Distribution Width 18.8 % (11.5-14.0); White Blood Count 19.2 K/mm3 (4.0-10.5)
[2016-12-25 09:04] LABS: Albumin * 1.3 gm/dl (3.4-5.0); Anion Gap 10.9 mmol/L (6.8-13.8); BUN/Creatinine Ratio 4.2 (9.0-21.6); Bilirubin, Total 6.7 mg/dL (0.0-1.1); Ca. Corrected For Albumin 9.6 mg/dL (8.4-10.2); Calcium * 7.8 mg/dL (7.9-10.9); Carbon Dioxide 25.7 mmol/L (24-32.6); Potassium 4.6 mmol/L (3.4-4.6); Total Protein 4.9 gm/dL (6.2-8.2)
[2016-12-25] MEDS ORDERED: NORMAL SALINE 1,000 ML IV PRN (10:49)
--- NOTE | 2016-12-25 19:11 | PN ---
Subjective - Date and Time Seen Date: 12/25/16 Time: 12:45 Subjective Narrative: Patient declines to talk. No complaints. Nursing reports patient declines to get out of bed, declines to eat. Objective - Vitals Vitals: Last Vital Signs Temp 36.4 C L 12/25/16 18:46 Pulse 104 H 12/25/16 18:46 Resp 18 12/25/16 18:46 BP 100/72 12/25/16 18:46 Pulse Ox 98 12/25/16 18:46 - Abnormal Lab Findings Abnormal Lab Findings: Abnormal Lab Results 12/25/16 12/25/16 12/25/16 Range/Units 08:30 08:30 08:30 WBC 19.2 H (4.0-10.5) K/mm3 RBC 2.94 L (4.2-5.4) M/mm3 Hgb 9.5 L (12.5-16.0) gm/dL Hct 27.9 L (37.0-47.0) % MCH 32.3 H (27-31) pg RDW 18.8 H (11.5-14.0) % MPV 10.3 H (6.0-9.5) fl Immature Gran % (Auto) 0.60 H (0.001-0.429) % Immature Gran # (Auto) 0.12 H (0.000-0.0310) K/mm3 Neutrophils % 83.2 H (42-75.0) % Lymphocytes % 7.9 L (20-51) % Neutrophils # 16.0 H (1.3-6.0) K/mm3 Monocytes # 1.4 H (0.0-1.0) k/mm3 BUN 2 L (3-23) mg/dL Est GFR (Non-Af Amer) 143 H D (60-130) mL/min BUN/Creatinine Ratio 4.2 L (9.0-21.6) Calcium 7.8 L (7.9-10.9) mg/dL Total Bilirubin 6.7 H (0.0-1.1) mg/dL AST 86 H (0-48) U/L Alkaline Phosphatase 277 H (50-170) U/L Ammonia 40.0 H (11-35) mcmol/L Total Protein 4.9 L (6.2-8.2) gm/dL Albumin 1.3 L (3.4-5.0) gm/dl - Exam Exam Narrative: Limited exam due to patient declining further examination. Constitutional: Present: Alert, Somnolent Respiratory: Present: lungs clear, normal breath sounds Cardiovascular/Chest: Present: regular rate, rhythm, no murmur Cauti Physician Documentation - Urinary Catheter Management Urethral (Ross) Urethral Indwelling: Yes Date of Insertion: 12/25/16 Date of Removal: 01/01/17 Time of Removal: 15:00 Assessment/Plan - Problems/Diagnosis (1) Hypokalemia Problem: Resolved Narrative: Replace potassium. However patient is not eating. Will continue to work with patient on encouraging eating and strengthening. (2) Leukocytosis Problem: Acute
[2016-12-25] MEDS ORDERED: LORazepam 2 MG/ML DISP.SYRIN IV ONE (20:12)
[2016-12-25 20:44] LABS: Urine Bilirubin 6 mg/dl (NEGATIVE); Urine Blood Negative /ul (NEGATIVE); Urine Ketone 15 mg/dL (NEGATIVE); Urine Protein 30 mg/dL (NEGATIVE); Urine Urobilinogen >=8.0 EU/dl (NORMAL); Urine pH 6.5 pH (5.0-7.0)
[2016-12-25 21:06] LABS: Urine Amorphous Sediment Many - 3+ (NONE-FEW); Urine Appearance Cloudy; Urine Bacteria 3+; Urine Color Orange; Urine Nitrite Positive (NEGATIVE); Urine RBC None Seen /hpf (0-5)
[2016-12-26] MEDS: SULFAMETHOXAZOLE/TRIMETHOPRIM 1 TAB TABLET PO SCH ×3 (00:06→20:53)
[2016-12-26 05:07] LABS: Hematocrit 31.3 % (37.0-47.0); Hemoglobin 10.4 gm/dL (12.5-16.0); Mean Corpuscular Hemoglobin 31.9 pg (27-31); Mean Corpuscular Hgb Conc 33.2 g/dl (32-36); Mean Platelet Volume 9.9 fl (6.0-9.5); Neutrophil # 16.3 K/mm3 (1.3-6.0); Neutrophil % 81.9 % (42-75.0); Platelet Count 349 K/mm3 (150-450); Red Blood Count 3.26 M/mm3 (4.2-5.4); Red Cell Distribution Width 18.9 % (11.5-14.0); White Blood Count 19.8 K/mm3 (4.0-10.5)
--- NOTE | 2016-12-26 07:06 | PN ---
Progesshan Note - Interim Narrative: Late entry 12/25/16 2200 Urinary retention bladder scan >800ml possible her ascites, pt stated she haven't void during the day and feeling distended Straight cath and urine U&C Due to the recurrent retention, Ross cath placed and monitor correct I/O UA Noted and initiated Bactrim for UTI Case discussed with Dr Bailey.
[2016-12-26] MEDS: NORMAL SALINE 1,000 ML IV PRN (15:39)
[2016-12-26] MEDS ORDERED: LORazepam 2 MG/ML DISP.SYRIN IV ONE (20:32)
[2016-12-27] MEDS: NORMAL SALINE 1,000 ML IV PRN ×2 (01:45→11:26)
--- NOTE | 2016-12-27 07:56 | PN ---
Subjective - Date and Time Seen Date: 12/27/16 Time: 07:48 Subjective Narrative: Patient seen today in mild distress, pt stated she was hurting because of the distended abdomen. She have intermittent shortness of breath when she move about the bed. pt stated her POA "VICENTA isnt shit and he no longer responsible to make any decisions for me and I don't want to live". Discussed hospice, DNR and court appointed POA if she chooses. she used refused further discussion and used profanity. Objective - Review of Systems Generalized/Overall Review: Reports: Weakness, Fatigue, Weight gain EENTM: Reports: No Symptoms Reported Respiratory: Reports: Shortness of Breath, Orthopnea Cardiac: Reports: No Symptoms Reported Abdominal: Reports: Abdominal Pain Genitourinary Symptoms: Reports: No Symptoms Reported Musculoskeletal Complaints: Reports: No Symptoms Reported Neurological: Reports: No Symptoms Reported Skin: Reports: No Symptoms Reported Endocrine: Reports: No Symptoms Reported - Vitals Vitals: Last Vital Signs Temp 37.1 C 12/27/16 02:09 Pulse 101 H 12/27/16 02:09 Resp 18 12/27/16 02:09 BP 106/72 12/27/16 02:09 Pulse Ox 98 12/27/16 02:09 - Exam Constitutional: Present: Alert, Mild distress ENT Exam: Present: hearing grossly normal, other - Icterus sclera Neck: Present: full range of motion Breasts: Present: Exam deferred Respiratory: Present: no respiratory distress, decreased breath sounds Cardiovascular/Chest: Present: normal peripheral pulses, no chest tenderness, no edema Abdomen: Present: guarding, rigidity, other - Ascites, distended /Rectal: Present: Exam deferred Extremity: Present: normal range of motion, non-tender, normal inspection, no pedal edema Skin Exam: Present: jaundice Neurologic: Present: oriented x 3 Eye contact: Present: refused to answer, belligerent, uncooperative Thoughts: Present: no apparent hallucination Cauti Physician Documentation - Urinary Catheter Management Urethral (Ross) Urethral Indwelling: Yes Date of Insertion: 12/25/16 Assessment/Plan - Problems/Diagnosis (1) Hypokalemia Problem: Resolved (2) Jaundice, hepatocellular Problem: Chronic (3) Transaminase or LDH elevation Problem: Chronic (4) Anemia Problem: Chronic Qualifiers: Anemia type: unspecified type Qualified Code(s): D64.9 - Anemia, unspecified (5) UTI (urinary tract infection) Problem: Acute Qualifiers: Urinary tract infection type: acute cystitis Hematuria presence: without hematuria Qualified Code(s): N30.00 - Acute cystitis without hematuria (6) Alcohol use disorder, severe, dependence Problem: Chronic (7) Dementia Problem: Chronic Qualifiers: Dementia type: associated with other underlying disease Dementia behavioral disturbance: without behavioral disturbance Qualified Code(s): F02.80 - Dementia in other diseases classified elsewhere without behavioral disturbance (8) Depression Problem: Chronic Qualifiers: Active/Remission status: currently active (9) Severe malnutrition Problem: Chronic
[2016-12-27] MEDS: SULFAMETHOXAZOLE/TRIMETHOPRIM 1 TAB TABLET PO SCH (09:06)
[2016-12-27 09:09] LABS: Hematocrit 25.9 % (37.0-47.0); Hemoglobin 8.7 gm/dL (12.5-16.0); Mean Cell Volume 95.9 fl (78-100); Mean Corpuscular Hemoglobin 32.2 pg (27-31); Mean Corpuscular Hgb Conc 33.6 g/dl (32-36); Mean Platelet Volume 10.4 fl (6.0-9.5); Neutrophil # 16.5 K/mm3 (1.3-6.0); Neutrophil % 86.4 % (42-75.0); Platelet Count 285 K/mm3 (150-450); White Blood Count 19.1 K/mm3 (4.0-10.5)
[2016-12-27] MEDS ORDERED: POLYVINYL ALCOHOL 150 DROP BTL EACHEYE PRN (11:13)
[2016-12-27] MEDS ORDERED: HYDROcodone/ACETAMINOPHEN 5 ML UDC PO PRN (11:13)
[2016-12-27] MEDS ORDERED: ALBUTEROL SULFATE 2.5 MG/0.5 ML VIAL.NEB IH PRN (11:13)
[2016-12-27] MEDS ORDERED: CODEINE PHOSPHATE/GUAIFENESIN 5 ML UDC PO PRN (11:13)
[2016-12-27] MEDS ORDERED: HYDROPHILIC OINTMENT 454 APPL JAR TP PRN (11:13)
[2016-12-27] MEDS ORDERED: HYDROmorphone HCL 1 MG/ML DISP.SYRIN IV ONE (11:17)
[2016-12-27] MEDS: HYDROmorphone HCL 1 MG/ML DISP.SYRIN IV PRN (18:00)
[2016-12-27] MEDS: LORazepam 2 MG/ML DISP.SYRIN IV PRN (18:24)
[2016-12-28] MEDS: HYDROmorphone HCL 1 MG/ML DISP.SYRIN IV PRN ×3 (03:13→19:09)
[2016-12-28] MEDS: LORazepam 2 MG/ML DISP.SYRIN IV PRN ×2 (03:45→10:04)
--- NOTE | 2016-12-28 05:53 | PN ---
Subjective - Date and Time Seen Date: 12/28/16 Time: 05:44 Subjective Narrative: patient seen today alert to self, no acute distress and stated she want to just rest. Objective - Review of Systems Generalized/Overall Review: Reports: Weakness EENTM: Reports: No Symptoms Reported Respiratory: Reports: No Symptoms Reported Cardiac: Reports: No Symptoms Reported Abdominal: Reports: No Symptoms Reported Genitourinary Symptoms: Reports: No Symptoms Reported Musculoskeletal Complaints: Reports: No Symptoms Reported Skin: Reports: No Symptoms Reported Endocrine: Reports: No Symptoms Reported - Vitals Vitals: Last Vital Signs Temp 36.6 C 12/27/16 09:19 Pulse 104 H 12/27/16 09:19 Resp 16 12/27/16 09:19 BP 107/85 12/27/16 09:19 Pulse Ox 97 12/27/16 09:19 - Abnormal Lab Findings Abnormal Lab Findings: Abnormal Lab Results 12/27/16 Range/Units 09:05 WBC 19.1 H (4.0-10.5) K/mm3 RBC 2.70 L (4.2-5.4) M/mm3 Hgb 8.7 L (12.5-16.0) gm/dL Hct 25.9 L (37.0-47.0) % MCH 32.2 H (27-31) pg RDW 19.0 H (11.5-14.0) % MPV 10.4 H (6.0-9.5) fl Immature Gran # (Auto) 0.08 H (0.000-0.0310) K/mm3 Neutrophils % 86.4 H (42-75.0) % Lymphocytes % 6.2 L (20-51) % Neutrophils # 16.5 H (1.3-6.0) K/mm3 Lymphocytes # 1.2 L (1.5-3.5) k/mm3 Monocytes # 1.2 H (0.0-1.0) k/mm3 - Exam Constitutional: Present: Alert, Cooperative, No distress, Other - Anasarca ENT Exam: Present: hearing grossly normal Neck: Present: full range of motion Breasts: Present: Exam deferred Respiratory: Present: chest non-tender, no respiratory distress, decreased breath sounds Cardiovascular/Chest: Present: normal peripheral pulses, regular rate, rhythm, no chest tenderness, no gallop Abdomen: Present: rigidity, distended, hypoactive /Rectal: Present: Exam deferred Extremity: Present: lower extremity edema, pedal edema, slow capillary refill, swelling Skin Exam: Present: jaundice Lymphatic: Present: no adenopathy Neurologic: Present: alert, motor weakness, depressed affect Eye contact: Present: cooperative, avoids eye contact, refused to answer, decreased rate of speech Thoughts: Present: no apparent hallucination Cauti Physician Documentation - Urinary Catheter Management Urethral (Ross) Urethral Indwelling: Yes Date of Insertion: 12/25/16 Assessment/Plan Plan Narrative: Pt continue to have urinary retention post straight cath. Ross cath inserted for correct I/O and bladder emptying pt currently on comfort cares ? paracentesis for Ascites - Problems/Diagnosis (1) Hypokalemia Problem: Resolved (2) Jaundice, hepatocellular Problem: Chronic (3) Transaminase or LDH elevation Problem: Chronic (4) Anemia Problem: Chronic Qualifiers: Anemia type: unspecified type Qualified Code(s): D64.9 - Anemia, unspecified (5) UTI (urinary tract infection) Problem: Acute Qualifiers: Urinary tract infection type: acute cystitis Hematuria presence: without hematuria Qualified Code(s): N30.00 - Acute cystitis without hematuria (6) Alcohol use disorder, severe, dependence Problem: Chronic (7) Dementia Problem: Chronic Qualifiers: Dementia type: associated with other underlying disease Dementia behavioral disturbance: without behavioral disturbance Qualified Code(s): F02.80 - Dementia in other diseases classified elsewhere without behavioral disturbance (8) Depression Problem: Chronic Qualifiers: Active/Remission status: currently active (9) Severe malnutrition Problem: Chronic (10) Urinary retention with incomplete bladder emptying Problem: Suspected
[2016-12-29] MEDS: HYDROmorphone HCL 1 MG/ML DISP.SYRIN IV PRN ×4 (01:07→16:27)
[2016-12-29] MEDS: LORazepam 2 MG/ML DISP.SYRIN IV PRN ×4 (01:22→22:03)
--- NOTE | 2016-12-29 09:52 | PN ---
Subjective - Date and Time Seen Date: 12/26/16 Time: 12:45 Subjective Narrative: Patient reporting increased abdominal bloating. Abdominal pain. Not eating. Not drinking. No fever, chills, nausea, or vomiting. Objective - Vitals Vitals: Last Vital Signs Selected Entries 12/26/16 10:09 Temperature 37.0 C Pulse Rate 107 H Respiratory 19 Rate Blood Pressure 98/59 Blood Pressure 72 Mean O2 Sat by Pulse 99 Oximetry - Exam Constitutional: Present: Somnolent - Patient awakens to voice, but is verbally argumentatitive and does not answer questions Respiratory: Present: lungs clear, normal breath sounds Cardiovascular/Chest: Present: tachycardia Abdomen: Present: Normal bowel sounds, tender - diffuse, distended Skin Exam: Present: jaundice Eye contact: Present: refused to answer, belligermarilou Cauti Physician Documentation - Urinary Catheter Management Urethral (Ross) Urethral Indwelling: Yes Date of Insertion: 12/25/16 Assessment/Plan Plan Narrative: Luz Elena is a 56 yo female with alcoholic cirrhosis, abdominal distension likely ascities, and hypokalemia. She is malnourished and not eating or drinking. She is hypotensive. We did have an IV in place but she removed this and declines another IV. She reports wanting to be left alone. Patient with worsening abdominal distension, will obtain abdominal US to evaluate for amount of ascites. Consider paracentesis. - Problems/Diagnosis (1) Hypokalemia Problem: Resolved (2) Leukocytosis Problem: Acute (3) Ascites due to alcoholic cirrhosis Problem: Acute
--- NOTE | 2016-12-29 09:59 | PN ---
Subjective - Date and Time Seen Date: 12/29/16 Time: 09:52 Subjective Narrative: Patient reports no interest in eating or drinking. Pain controlled, resting comfortably. Objective - Vitals Vitals: Last Vital Signs Temp 37 C 12/28/16 06:30 Pulse 106 H 12/28/16 06:30 Resp 5 L 12/28/16 06:30 BP 86/64 12/28/16 06:30 Pulse Ox 97 12/28/16 06:30 - Exam Constitutional: Present: Somnolent ENT Exam: Present: hearing grossly normal Cardiovascular/Chest: Present: regular rate, rhythm, no murmur Abdomen: Present: tender - mild tenderness to diffuse palpation, distended Skin Exam: Present: jaundice Cauti Physician Documentation - Urinary Catheter Management Urethral (Ross) Urethral Indwelling: Yes Date of Insertion: 12/25/16 Assessment/Plan Plan Narrative: Luz Elena is a 56 yo female with End stage liver failure from alcoholic cirrhosis. She is malnourished and currently not eating or drinking. She has removed IV access and declines any IVFs. Discussed with her POA who agrees that she wants to go and has agreed to comfort cares. She is on dilaudid prn severe pain, ativan prn restlessness. She appears comfortable at this time. No changes. Suspect her health will continue to decline as she is not eating or drinking and does not want IVFs to prolong condition. Antibiotics were discontinued as to not prolong her condition. This plan was agreed upon with her POA. Will continue comfort cares. - Problems/Diagnosis (1) Ascites due to alcoholic cirrhosis Problem: Acute (2) UTI (urinary tract infection) Problem: Acute Qualifiers: Urinary tract infection type: acute cystitis Hematuria presence: without hematuria Qualified Code(s): N30.00 - Acute cystitis without hematuria (3) Hypokalemia Problem: Resolved
[2016-12-30] MEDS: HYDROmorphone HCL 1 MG/ML DISP.SYRIN IV PRN ×3 (01:45→12:01)
[2016-12-30] MEDS: LORazepam 2 MG/ML DISP.SYRIN IV PRN ×3 (02:45→15:32)
[2016-12-30 10:47] VITALS: BP 103/66
[2016-12-30] MEDS: HYDROmorphone HCL 1 MG/ML DISP.SYRIN IV SCH ×2 (17:38→21:50)
[2016-12-31] MEDS: HYDROmorphone HCL 1 MG/ML DISP.SYRIN IV SCH ×8 (01:02→23:39)
[2016-12-31] MEDS: LORazepam 2 MG/ML DISP.SYRIN IV PRN ×12 (06:44→20:11)
[2016-12-31] MEDS ORDERED: ATROPINE SULFATE 150 DROP BTL SL PRN ×2 (07:00→07:16)
--- NOTE | 2016-12-31 08:35 | PN ---
Subjective - Date and Time Seen Date: 12/30/16 Time: 17:00 Subjective Narrative: Patient resting comfortably. Patients POA (VICENTA) in the room visiting. Patient has been comfortable through the day. Patient was having more pain this morning. No fever, chills, N/V. Comfortable now. Objective - Vitals Vitals: Last Vital Signs Temp 37.0 C 12/30/16 22:46 Pulse 122 H 12/30/16 22:46 Resp 18 12/30/16 22:46 BP 103/66 12/30/16 22:46 Pulse Ox 88 L 12/30/16 22:46 - Exam Exam Narrative: Sleeping comfortably. Respiratory: Present: lungs clear, normal breath sounds Cardiovascular/Chest: Present: no murmur, tachycardia Abdomen: Present: Normal bowel sounds, soft, distended Skin Exam: Present: warm/dry, no cyanosis, jaundice Cauti Physician Documentation - Urinary Catheter Management Urethral (Ross) Urethral Indwelling: Yes Date of Insertion: 12/25/16 Assessment/Plan Plan Narrative: Patient remains in comfort cares. Not eating or drinking. Patient has been comfortable through the day. Having pain this morning. Will schedule dilaudid every 4 hours so that she does not fall behind in pain through the night. - Problems/Diagnosis (1) Ascites due to alcoholic cirrhosis Problem: Acute (2) UTI (urinary tract infection) Problem: Acute Qualifiers: Urinary tract infection type: acute cystitis Hematuria presence: without hematuria Qualified Code(s): N30.00 - Acute cystitis without hematuria (3) Hypokalemia Problem: Resolved
[2016-12-31] MEDS: ATROPINE SULFATE SL PRN ×6 (09:00→14:55)
[2016-12-31] MEDS: HYDROmorphone HCL 1 MG/ML DISP.SYRIN IV PRN ×9 (10:05→23:39)
--- NOTE | 2016-12-31 17:23 | PN ---
Subjective - Date and Time Seen Date: 12/31/16 Time: 17:17 Subjective Narrative: Patient resting comfortably. Had been more notably restless and in pain this morning. No fever, chills, vomiting. Not eating or drinking. Objective - Vitals Vitals: Last Vital Signs Temp 37.0 C 12/30/16 22:46 Pulse 122 H 12/30/16 22:46 Resp 18 12/30/16 22:46 BP 103/66 12/30/16 22:46 Pulse Ox 88 L 12/30/16 22:46 - Exam Constitutional: Present: Somnolent Respiratory: Present: lungs clear, other - bradypnea about 5 respirations per minute Cardiovascular/Chest: Present: no murmur, tachycardia Abdomen: Present: hypoactive Skin Exam: Present: no cyanosis, jaundice Cauti Physician Documentation - Urinary Catheter Management Urethral (Ross) Urethral Indwelling: Yes Date of Insertion: 12/25/16 Assessment/Plan Plan Narrative: Patient is on comfort cares for end stage liver disease with ascites and failure to thrive (no oral intake). Prn ativan and dilaudid are helping but patient is occasionally falling behind in pain control and becoming restless. Will increase scheduled medications. Patient with bradypnea, suspect less than 24 hours of life. - Problems/Diagnosis (1) Ascites due to alcoholic cirrhosis Problem: Acute (2) UTI (urinary tract infection) Problem: Acute Qualifiers: Urinary tract infection type: acute cystitis Hematuria presence: without hematuria Qualified Code(s): N30.00 - Acute cystitis without hematuria (3) Hypokalemia Problem: Resolved
[2016-12-31] MEDS: LORazepam 2 MG/ML DISP.SYRIN IV SCH (22:25)
[2017-01-01] MEDS: LORazepam 2 MG/ML DISP.SYRIN IV SCH ×4 (01:27→13:41)
[2017-01-01] MEDS: HYDROmorphone HCL 1 MG/ML DISP.SYRIN IV SCH ×2 (01:28→03:24)
[2017-01-01] MEDS: ATROPINE SULFATE SL PRN (01:32)
[2017-01-01] MEDS: LORazepam 2 MG/ML DISP.SYRIN IV PRN ×2 (03:25→04:44)
[2017-01-01] MEDS ORDERED: MORPHINE SULFATE 4 MG/ML SYRG IV PRN (04:34)
[2017-01-01] MEDS: MORPHINE SULFATE 2 MG/ML DISP.SYRIN IV SCH ×8 (04:44→13:46)
[2017-01-01] MEDS ORDERED: MORPHINE SULFATE 2 MG/ML DISP.SYRIN IV PRN (07:15)
--- NOTE | 2017-01-16 08:18 | DS ---
Discharge Summary - Provider Admitting Clinician: Willi Bailey Attending Physician on Admission: Willi Bailey - Date and Time Date of : 01/01/17 Time of : 14:00 - Diagnosis/Cause of (1) Hypokalemia Problems: Resolved (2) Leukocytosis Problems: Acute - Summary Details (narrative): Luz Elena was admitted for hypokalemia due to failure to thrive and poor oral intake. She has chronic alcoholism but alcohol level was zero and she reportedly had not been drinking alcohol since prior discharge. She was however also not eating food or other fluids. She was admitted and potassium was replaced. Patient was noncompliant and declined medications at times, declined to eat, declined to move out of bed, and removed her IV. She continued to decline and become weaker without oral intake. She refused any form of nutrition or fluid including oral, IV, or tube feeding. She began to have abdominal distention but declined evaluation with ultrasound. She reported that she wanted pain control and wanted to . Discussed with her POA who also agreed that she had given up and he was in agreement that she should be made comfort cares only. She was given pain control and medication for restlessness. She continued to not eat. She was mad comfortable and ultimately passed on 01/01 at 1400. Procedures Performed: none - Additional Data Confirmation of as documented by pronouncing clinician: no pulse, no respirations, no heart sounds, pupils fixed and dilated
== END 2017-01-01 14:00 | disposition expired | DRG 640 ==
LOC: ER 02:17 → MS 04:13
PROVIDERS: ADMIT Nurse Practitioner; ATTEND Family Medicine
PROC: 0T9B7ZZ Drainage of Bladder, Via Natural or Artificial Opening (ICD-10-PCS; principal; 2016-12-24)
DX: E87.6 Hypokalemia (principal); E43 Unspecified severe protein-calorie malnutrition; N39.0 Urinary tract infection, site not specified; Z68.1 Body mass index [BMI] 19.9 or less, adult; F02.80 Dementia in other diseases classified elsewhere, unspecified severity, without behavioral disturbance, psychotic disturbance, mood disturbance, and anxiety; R33.9 Retention of urine, unspecified; K72.90 Hepatic failure, unspecified without coma; D72.829 Elevated white blood cell count, unspecified; K70.31 Alcoholic cirrhosis of liver with ascites; F10.20 Alcohol dependence, uncomplicated; R62.7 Adult failure to thrive; J44.9 Chronic obstructive pulmonary disease, unspecified; F31.9 Bipolar disorder, unspecified; T50.906A Underdosing of unspecified drugs, medicaments and biological substances, initial encounter; T88.7XXA Unspecified adverse effect of drug or medicament, initial encounter; Z91.128 Patient's intentional underdosing of medication regimen for other reason; Y92.239 Unspecified place in hospital as the place of occurrence of the external cause; Z91.11 Patient's noncompliance with dietary regimen; Z88.0 Allergy status to penicillin; Z86.73 Personal history of transient ischemic attack (TIA), and cerebral infarction without residual deficits
CPT/HCPCS: 36415; 51701; 71010; 74020; 76705; 80053; 81001; 82140; 82150; 82977; 83605; 83690; 84132; 85025; 85610; 87040; 87077; 87086; 87186; 96365; 99285; G0481; J2405